=== PATIENT | female | born 1950 | race Caucasian/White ===

== ENCOUNTER 2019-01-18 23:44 | Emergency (ER) | payer MEDICARE ==
[~2019-01-18] VITALS: Ht 162.6 cm; Wt 59.0 kg
[~2019-01-18 23:44] MED LIST: ASPI325 PO; CYCL10 PO; HYDACE5 PO; LISI10 PO; MECL25 PO; MULVITA PO; ROSU5 PO
[2019-01-19] MEDS ORDERED: LOSARTAN POTASS50 MG PO (00:07)
[2019-01-19] MEDS ORDERED: Nitroglycerin1 EACH TD (00:07)
[2019-01-19] MEDS ORDERED: ROSUVASTATIN CA20 MG PO (00:07)
[2019-01-19] MEDS ORDERED: ESCI20 PO (00:07)
[2019-01-19] MEDS ORDERED: CLOP75 PO (00:07)
[2019-01-19] MEDS ORDERED: ALBU90OI6 INH (00:08)
[2019-01-19 00:24] LABS: BASOPHILS ABSOLUTE AUTO 0.02 K/mm3 (0.00-0.23); BASOPHILS PERCENT AUTO 0 % (0-2); EOSINOPHILS ABSOLUTE AUTO 0.02 K/mm3 (0.00-0.68); EOSINOPHILS PERCENT AUTO 0 % (0-6); Hematocrit 39.6 % (33.0-51.0); Hemoglobin 13.4 g/dL (11.5-16.0); IMMATURE GRAN ABSOLUTE AUTO 0.05 K/mm3 (0.00-0.10); IMMATURE GRAN PERCENT AUTO 1 % (0-1); LYMPHOCYTES ABSOLUTE AUTO 1.73 K/mm3 (0.84-5.20); LYMPHOCYTES PERCENT AUTO 17 % (21-46); MONOCYTES ABSOLUTE AUTO 0.59 K/mm3 (0.16-1.47); MONOCYTES PERCENT AUTO 6 % (4-13); Mean Corpuscular HGB 30.8 pg (26.0-34.0); Mean Corpuscular HGB Conc 33.8 g/dL (31.5-36.5); Mean Corpuscular Volume 91 fL (80-100); Mean Platelet Volume 11.2 fL (9.1-12.4); NEUTROPHILS ABSOLUTE AUTO 7.97 K/mm3 (1.96-9.15); NEUTROPHILS PERCENT AUTO 77 % (41-73); Platelet Count 232 K/mm3 (150-400); RDW Coefficient Variation 13.1 % (11.7-14.2); RDW Standard Deviation 43.2 fL (35.1-46.3); Red Blood Cell Count 4.35 M/mm3 (3.80-5.20); White Blood Cell Count 10.38 K/mm3 (4.00-11.30)
[2019-01-19 00:38] LABS: Alanine Aminotransfer (ALT/SGP 26 U/L (12-78); Albumin, Blood 4.2 g/dL (3.4-5.0); Albumin/Globulin Ratio 1.4 (0.8-1.8); Alk Phos 57 U/L (50-136); Anion Gap 9 mmol/L (6-16); Aspartate Aminotrans (AST/SGOT 25 U/L (12-37); Bilirubin, Total 0.4 mg/dL (0.1-1.0); Blood Urea Nitrogen 19 mg/dL (8-24); Bun/Creatinine Ratio 32.9 (12.0-20.0); CO2, Blood 26 mmol/L (21-32); Calcium, Blood 8.8 mg/dL (8.5-10.1); Chloride, Blood 97 mmol/L (98-108); Creatinine, Blood 0.58 mg/dL (0.40-1.00); Globulin, Blood 2.9 g/dL (2.2-4.0); Glomerular Filtration Rate >60 (60-); Glucose, Blood 131 mg/dL (70-99); Potassium, Blood 4.1 mmol/L (3.5-5.5); Sodium, Blood 132 mmol/L (136-145); Total Protein, Blood 7.1 g/dL (6.4-8.2); Troponin I <0.015 ng/mL (0.000-0.040)
== END 2019-01-19 03:08 | disposition home or self-care (01) ==
LOC: ER 23:44
PROVIDERS: Physician Assistant
DX: R07.9 Chest pain, unspecified (principal); I10 Essential (primary) hypertension; E78.00 Pure hypercholesterolemia, unspecified; F17.210 Nicotine dependence, cigarettes, uncomplicated; Z88.8 Allergy status to other drugs, medicaments and biological substances; Z79.82 Long term (current) use of aspirin; Z79.899 Other long term (current) drug therapy
CPT/HCPCS: 71046; 80053; 83880; 84484; 85025; 93005; 93010; 96374; 96375; 99285-25; J0360; J2270

== ENCOUNTER 2022-01-26 14:20 | Emergency (ER) | payer MEDICARE ==
[~2022-01-26] VITALS: Ht 160 cm; Wt 40.8 kg
[~2022-01-26 14:20] MED LIST changes: +ALBU90OI6 INH; +CLOP75 PO; +ESCI20 PO; +LOSARTAN POTASS50 MG PO; +NORCO 7.5-3251 EAC1 PO; +Nitroglycerin1 EACH TD; +ROSUVASTATIN CA20 MG PO
[2022-01-26] MEDS ORDERED: ROSUVASTATIN CA40 MG PO (15:18)
[2022-01-26] MEDS ORDERED: NEURONTIN300 MG PO (15:20)
[2022-01-26 15:31] LABS: BASOPHILS ABSOLUTE AUTO 0.03 K/mm3 (0.00-0.23); BASOPHILS PERCENT AUTO 0 % (0-2); EOSINOPHILS ABSOLUTE AUTO 0.23 K/mm3 (0.00-0.68); EOSINOPHILS PERCENT AUTO 2 % (0-6); Hematocrit 34.6 % (33.0-51.0); Hemoglobin 11.6 g/dL (11.5-16.0); IMMATURE GRAN ABSOLUTE AUTO 0.04 K/mm3 (0.00-0.10); IMMATURE GRAN PERCENT AUTO 0 % (0-1); LYMPHOCYTES ABSOLUTE AUTO 0.95 K/mm3 (0.84-5.20); LYMPHOCYTES PERCENT AUTO 9 % (21-46); MONOCYTES ABSOLUTE AUTO 0.89 K/mm3 (0.16-1.47); MONOCYTES PERCENT AUTO 8 % (4-13); Mean Corpuscular HGB 31.3 pg (26.0-34.0); Mean Corpuscular HGB Conc 33.5 g/dL (31.5-36.5); Mean Corpuscular Volume 93 fL (80-100); Mean Platelet Volume 10.3 fL (9.1-12.4); NEUTROPHILS ABSOLUTE AUTO 9.03 K/mm3 (1.96-9.15); NEUTROPHILS PERCENT AUTO 81 % (41-73); Platelet Count 348 K/mm3 (150-400); RDW Coefficient Variation 14.3 % (11.7-14.2); RDW Standard Deviation 48.7 fL (35.1-46.3); Red Blood Cell Count 3.71 M/mm3 (3.80-5.20); White Blood Cell Count 11.17 K/mm3 (4.00-11.30)
[2022-01-26 15:42] LABS: Albumin, Blood 3.4 g/dL (3.4-5.0); Albumin/Globulin Ratio 1.2 (0.8-1.8); Bilirubin, Total 0.4 mg/dL (0.1-1.0); Bun/Creatinine Ratio 22.1 (12.0-20.0); Calcium, Blood 9.1 mg/dL (8.5-10.1); Creatinine, Blood 0.73 mg/dL (0.40-1.00); Globulin, Blood 2.9 g/dL (2.2-4.0); Potassium, Blood 4.3 mmol/L (3.5-5.5); Total Protein, Blood 6.3 g/dL (6.4-8.2)
[2022-01-26 16:49] LABS: Source, Urine Clean Catch
[2022-01-26 16:52] LABS: Appearance, Urine Hazy (Clear); Bilirubin, Urine Neg (Neg); Blood, Urine Neg (Neg); Color, Urine Yellow (P-Yellow); Glucose Qualitative, Urine Neg (Neg); Ketones, Urine 1+ (Neg); Leukocyte Esterase, Urine 1+ (Neg); Nitrite, Urine Neg (Neg); Protein, Urine 2+ (Neg); Urobilinogen, Urine NORM (Normal)
[2022-01-26] MEDS ORDERED: Colace100 MG PO (17:06)
[2022-01-26] MEDS ORDERED: Percocet 5-3251 EACH PO (17:06)
[2022-01-26] MEDS ORDERED: Prednisone20 MG PO (17:06)
[2022-01-26 17:14] LABS: Red Blood Cells, Urine 0-2 /hpf (0-2)
[2022-01-26 17:15] LABS: Bacteria Many /hpf; Squamous Epithelial Cells Many /hpf (Few)
[2022-01-26 17:18] LABS: Hyaline Casts 0-2 /lpf (0-2); Mucus Mod (0-Heavy)
[2022-01-26] MEDS ORDERED: Zithromax250 MG PO (18:41)
== END 2022-01-26 18:52 | disposition home or self-care (01) ==
LOC: ER 14:20
PROVIDERS: Physician Assistant
DX: J44.1 Chronic obstructive pulmonary disease with (acute) exacerbation (principal); F17.210 Nicotine dependence, cigarettes, uncomplicated; M48.061 Spinal stenosis, lumbar region without neurogenic claudication; M48.07 Spinal stenosis, lumbosacral region; M48.56XA Collapsed vertebra, not elsewhere classified, lumbar region, initial encounter for fracture; M51.16 Intervertebral disc disorders with radiculopathy, lumbar region; I73.9 Peripheral vascular disease, unspecified; Z79.82 Long term (current) use of aspirin; Z79.899 Other long term (current) drug therapy; Z88.8 Allergy status to other drugs, medicaments and biological substances; Z79.52 Long term (current) use of systemic steroids
CPT/HCPCS: 36415; 71045; 72131; 80053; 81001; 83880; 84484; 85025; 93005; 93010; 93925; A9270; J0456; J1170; J2405; J2930; J3010; J7050

== ENCOUNTER 2022-02-24 14:54 | Inpatient (IN) | payer MEDICARE ==
[~2022-02-24] VITALS: Ht 160 cm; Wt 40.5 kg
[~2022-02-24 14:54] MED LIST changes: +Colace100 MG PO; +NEURONTIN300 MG PO; +Percocet 5-3251 EACH PO; +Prednisone20 MG PO; +ROSUVASTATIN CA40 MG PO; +Zithromax250 MG PO
[2022-02-24 16:07] LABS: BASOPHILS ABSOLUTE AUTO 0.02 K/mm3 (0.00-0.23); BASOPHILS PERCENT AUTO 0 % (0-2); EOSINOPHILS PERCENT AUTO 0 % (0-6); Hematocrit 22.9 % (33.0-51.0); IMMATURE GRAN ABSOLUTE AUTO 0.16 K/mm3 (0.00-0.10); IMMATURE GRAN PERCENT AUTO 1 % (0-1); LYMPHOCYTES ABSOLUTE AUTO 0.43 K/mm3 (0.84-5.20); LYMPHOCYTES PERCENT AUTO 2 % (21-46); MONOCYTES PERCENT AUTO 6 % (4-13); Mean Corpuscular HGB 32.3 pg (26.0-34.0); Mean Corpuscular HGB Conc 34.9 g/dL (31.5-36.5); Mean Corpuscular Volume 92 fL (80-100); Mean Platelet Volume 10.7 fL (9.1-12.4); NEUTROPHILS ABSOLUTE AUTO 18.09 K/mm3 (1.96-9.15); NEUTROPHILS PERCENT AUTO 91 % (41-73); Platelet Count 260 K/mm3 (150-400); RDW Standard Deviation 50.4 fL (35.1-46.3); Red Blood Cell Count 2.48 M/mm3 (3.80-5.20)
[2022-02-24 16:32] LABS: Albumin/Globulin Ratio 1.2 (0.8-1.8); Bilirubin, Total 0.6 mg/dL (0.1-1.0); Bun/Creatinine Ratio 58.8 (12.0-20.0); Calcium, Blood 9.2 mg/dL (8.5-10.1); Creatinine, Blood 0.71 mg/dL (0.40-1.00); Globulin, Blood 2.4 g/dL (2.2-4.0); Potassium, Blood 3.4 mmol/L (3.5-5.5); Total Protein, Blood 5.4 g/dL (6.4-8.2)
[2022-02-24 17:18] LABS: Source, Urine Fem Cath
[2022-02-24 17:25] LABS: Appearance, Urine Clear (Clear); Bilirubin, Urine Neg (Neg); Blood, Urine 2+ (Neg); Color, Urine Yellow (P-Yellow); Glucose Qualitative, Urine Neg (Neg); Ketones, Urine Neg (Neg); Leukocyte Esterase, Urine Neg (Neg); Nitrite, Urine Neg (Neg); Protein, Urine 2+ (Neg); Specific Gravity, Urine 1.025 (1.003-1.022); Urobilinogen, Urine NORM (Normal)
[2022-02-24 17:28] LABS: White Blood Cells, Urine 0-2 /hpf (0-5)
[2022-02-24 17:29] LABS: Bacteria Few /hpf; Squamous Epithelial Cells Rare /hpf (Few)
[2022-02-24 18:06] LABS: Influenza A, PCR NEGATIVE (NEGATIVE); Influenza B, PCR NEGATIVE (NEGATIVE); Resp Syncytial Virus, PCR NEGATIVE (NEGATIVE); SARS-Cov-2 (COVID-19) PCR, MMC NEGATIVE (NEGATIVE)
--- NOTE | 2022-02-24 19:10 | NUR ---
ASSUMPTION OF CARE PT IS A&OX4. SHE IS CONTINUOUSLY MOVING AROUND IN THE BED WITH C/O CHRONIC BACK PAIN. SHE IS RECEIVING NS 150ML/HR AND 2ND UNIT OF PRBCS. BLOOD STOPPED AT 1920. POWERGLIDE TO BETINA, 20G TO LFA AND 24G TO LW. LONDONO PATENT AND DRAINING TO GRAVITY. SINUS WITH ST DEPRESSION, RAT 90S-110S. SBP 90S. INCREASED WORK OF BREATHING, RATE 20-30. O2 MASK PLACED BY DAY SURGERY STAFF.
--- NOTE | 2022-02-24 19:20 | NUR ---
admit to icu 1830 PATIENT IS ALERT AND ORIENTED HOWEVER IN EXTREME PAIN TO HER BACK FLANK REGION. SHE IS VERY RESTLESS. SHE IS TACHYCARDIC, ON 2 L NC WITH WET, COURSE LUNGS T/O. SHE IS A 35.1KG WEIGHT. IT TOOK 3 RNS BUT A POWERGLIDE WAS PLACED TO HER UPPER LEFT ARM, FLUSHED WELL. NS STARTED ON 150 ML /HR AND PRBC WAS GOING FROM THE ER, THE RATE WAS INCREASED DUE TO HER HYPOTENSION. SHE OTHERWISE HAS 2 PIV'S, 20G TO LEFT WRIST AND 24 G TO RIGHT LOWER ARM. LONDONO IS IN PLACE WITH CLEAR YELLOW URINE OUT. SHE WAS GIVEN 0.5 MG OF DILAUDID FOR HER BACK PAIN AND THE SCOPE TEAM ARRIVED, CONSENTED AND IS SETTING UP FOR THE EGD. REPORT WAS GIVEN OFF TO ONCOMING SHIFT TO RESUME CARE.
--- NOTE | 2022-02-24 19:30 | NUR ---
ENDOSCOPY SCOPE PERFORMED BY DR NOE AND DR MOSCOSO WITH ASSISTANCE FROM 2 DAY SURGERY RNS. PROPOFOL USED FOR SEDATION AND ADMINISTERED BY DR MOSCOSO. TOTAL OF 15 CLIPS PLACED. REFER TO DAY SURGERY DOCUMENTATION FOR MORE INFORMATION. POWERGLIDE IN BETINA INFILTRATED. NEW POWERGLIDE PLACED IN RAFAL. 24G IN RW INFILATRATED, REMOVED. PT DROWSY BUT WAKENS TO VERBAL STIMULI. SHE IS ABLE TO ANSWER QUESTIONS APPROPRIATELY. MAKES PURPOSEFUL MOVEMENTS WITH ALL EXTREMITIES. SBP 150S, HR 100S, 5L NC WITH SPO2 >95%. SHE IS BEGINNING TO BECOME RESTLESS AGAIN, MEDICATED PER EMAR. BED IN LOW POSITION, CALL LIGHT WITHIN REACH.
--- NOTE | 2022-02-24 20:34 | NUR ---
02/24/222033 Celeste Melvin 191 IN ROOM, MONITORS PLACED ONE UNIT OF BLOOD TRANSFUSION COMPLETED. DR CONTRERAS PROVIDING ANESTHESIA, SEE HIS RECORDS. History, Chart, Medications and Allergies reviewed before start of procedure.2% LIDOCAINE SPRAY TO BACK OF THROAT JUST PRIOR TO START OF PROCEDURE. BITE BLOCK AND POM MASK PLACE IV INFILTRATED AT BEGINNING OF PROCEDURE AFTER 200 MG PROPOFOL GIVEN BY DR CONTRERAS.ABOVE IV SITE SWELLING NO REDNESSVISUALIZED. CHANGED IV SITES.
[2022-02-24 20:40] LABS: Hematocrit 20.7 % (33.0-51.0)
[2022-02-24 23:23] LABS: Hematocrit 23.4 % (33.0-51.0); Hemoglobin 8.3 g/dL (11.5-16.0)
--- NOTE | 2022-02-24 23:47 | NUR ---
UPDATE PT OCCASIONALLY VERY RESTLESS IN BED. REPOSITIONED AND BOOSTED SEVERAL TIMES, PT MOVES PILLOWS AND WIGGLES SELF AROUND. SHE CONTINUES TO C/O BACK PAIN, MEDICATED PER EMAR. SHE DENIES ABDOMINAL PAIN. DENIES NAUSEA. ORDER RECEIVED TO TRANSFUSE 1 MORE UNIT PRBCS THAT IS INFUSING NOW. TRENDING H&H. VSS. CALL LIGHT WITHIN REACH.
--- NOTE | 2022-02-25 04:39 | NUR ---
UPDATE PT REMAINS RESTLESS, CONTINUOUSLY MOVING AROUND IN BED. REPOSITIONED SEVERAL TIMES, WARM PAD BEHIND BACK. SHE CONTINUES TO HAVE SEVERE BACK PAIN. SHE DENIES ABDOMINAL PAIN, STS PAIN IS ONLY IN HER BACK. MEDICATED PER EMAR. HR TRENDING UP AND REMAINING 110S-130S. SHE IS HYPERTENSIVE WITH SBP CONSISTENTLY >150 WITH SOME >190. HOSPITALIST NOTIFIED, RECEIVED ORDER FOR INCREASED DOSE OF DILAUDID AND NEW ORDER FOR FENTANYL. MEDICATED PER EMAR, PT DENIES DECREASE IN PAIN. SHE REMAINS HYPERTENSIVE AND TACHY. MOTTLING ON KNEES AND ANKLES/FEET INCREASING. DOPPLER PULSES PRESENT POST-TIBIAL AND PEDAL BILATERALLY.
[2022-02-25 05:24] LABS: BASOPHILS ABSOLUTE AUTO 0.02 K/mm3 (0.00-0.23); BASOPHILS PERCENT AUTO 0 % (0-2); EOSINOPHILS PERCENT AUTO 0 % (0-6); Hemoglobin 10.1 g/dL (11.5-16.0); IMMATURE GRAN PERCENT AUTO 1 % (0-1); LYMPHOCYTES ABSOLUTE AUTO 0.96 K/mm3 (0.84-5.20); LYMPHOCYTES PERCENT AUTO 6 % (21-46); MONOCYTES ABSOLUTE AUTO 1.23 K/mm3 (0.16-1.47); MONOCYTES PERCENT AUTO 8 % (4-13); Mean Corpuscular HGB 31.2 pg (26.0-34.0); Mean Corpuscular HGB Conc 34.8 g/dL (31.5-36.5); Mean Corpuscular Volume 90 fL (80-100); Mean Platelet Volume 10.6 fL (9.1-12.4); NEUTROPHILS ABSOLUTE AUTO 13.71 K/mm3 (1.96-9.15); NEUTROPHILS PERCENT AUTO 86 % (41-73); Platelet Count 181 K/mm3 (150-400); RDW Coefficient Variation 14.3 % (11.7-14.2); RDW Standard Deviation 46.2 fL (35.1-46.3); Red Blood Cell Count 3.24 M/mm3 (3.80-5.20); White Blood Cell Count 16.02 K/mm3 (4.00-11.30)
[2022-02-25 05:48] LABS: Albumin, Blood 2.7 g/dL (3.4-5.0); Albumin/Globulin Ratio 1.2 (0.8-1.8); Bilirubin, Total 1.2 mg/dL (0.1-1.0); Bun/Creatinine Ratio 46.7 (12.0-20.0); Calcium, Blood 7.8 mg/dL (8.5-10.1); Creatinine, Blood 0.6 mg/dL (0.40-1.00); Globulin, Blood 2.2 g/dL (2.2-4.0); Magnesium, Blood 1.5 mg/dL (1.6-2.4); Phosphorus, Blood 2.2 mg/dL (2.5-4.9); Potassium, Blood 2.8 mmol/L (3.5-5.5); Total Protein, Blood 4.9 g/dL (6.4-8.2)
--- NOTE | 2022-02-25 06:02 | NUR ---
SHIFT SUMMARY PT HAS BEEN RESTLESS THROUGHOUT THE SHIFT. SHE CONTINUES TO HAVE BACK PAIN, REPOSITIONED SEVERAL TIMES, WARM PACK APPLIED, AND MEDICATED PER EMAR. HOSPITALIST CONSULTED AND PAIN MEDICATION DOSES INCREASED. SHE DENIES ABDOMINAL PAIN OR DISCOMFORT. NEURO: SHE REMAINS A&OX4. ANSWERS QUESTIONS APPROPRIATELY, PARTICIPATES IN CARE. RESP: SHE IS ON 3L NC WITH SPO2 >95%. LUNGS ARE COARSE AND DIMINISHED IN BASES. OCCASIONAL AUDIBLE WHEEZE AND COUGH. SHE HAS DENIES SOB THROUGHOUT THE NIGHT. CARDIAC: AT BEGINNING OF SHIFT HR 90S-105. HR INCREASED TO 120S, SINUS TACH. PT HAS BEEN HYPERTENSIVE FOR MOST OF SHIFT. HOSPITALIST MADE AWARE OF THESE CHANGES. STRONG RADIAL PULSES, DOPPLER POST-TIBIAL AND PEDAL PULSES. GI: ABDOMEN REMAINS SOFT, HYPOACTIVE BOWEL TONES. PT DRANK SMALL AMOUNT OF WATER. DENIES NAUSEA. NO VOMITING OR BM THIS SHIFT. ENDOSCOPY PERFORMED AT BEGINNING OF SHIFT, [address] NOE. : LONDONO PATENT AND DRAINING CLEAR YELLOW URINE TO GRAVITY. SHIFT OUTPUT 2250ML. SKIN: DRY, FRAGILE. SCAB TO L CLAVICLE AND R KNEE. SCATTERED BRUISING ON EXTREMITIES. SKIN TEAR ON R ELBOW. MOTTLING TO BILAT KNEES AND ANKLES/FEET. AM LABS SHOW POTASSIUM 2.8. ORDER RECEIVED FOR KCL. POWERGLIDE REMAINS IN RAFAL, 20G TO LFA. CALL LIGHT WITHIN REACH. WILL REPORT TO ONCOMING RN.
--- NOTE | 2022-02-25 07:30 | NUR ---
ASSUME CARE: I have assume care of this patient.
--- NOTE | 2022-02-25 08:21 | NUR ---
PROVIDER UPDATE: Dr Monique called and updated on pt's most recent labs and pain management. Discussed electrolyte placement and initiation of dilaudid SPEECH SCIENTIST. Provider to place new orders.
[2022-02-25 11:34] LABS: Hematocrit 28.5 % (33.0-51.0)
--- NOTE | 2022-02-25 15:35 | NUR ---
PROVIDER UPDATE: Dr Monique called and updated on pt's elevated BP. He will place new orders for PRN antihypertensives.
[2022-02-25 16:26] LABS: Hematocrit 30.7 % (33.0-51.0); Hemoglobin 10.9 g/dL (11.5-16.0)
--- NOTE | 2022-02-25 17:00 | NUR ---
UPDATE: RT called to assess pt.
--- NOTE | 2022-02-25 19:02 | NUR ---
SHIFT SUMMARY: Neuro: Pt intermittantly awake and oriented to self, place, and time. She states she is in the hospital because of her back pain. Pt drifts off to sleep, then wake up writhing in pain again. When awake pt is crying out in pain. She was placed on a dilaudid drip and has a fentanyl patch in place on her left shoulder. Cardiac: Sinus rhythm to sinus tach. Elevated SPB Respiratory: respiratory status has worsened throughout the day. She is currently on 8L NC with plan to place her on BIPAP when she tolerates it. GI/: She has taken sips of clear liquids today. No BP today. Chau draining Psych/social: family at bedside and supportive
--- NOTE | 2022-02-25 19:55 | NUR ---
ASSESSMENT/ASSUMED CARE PT SLEEPING, OPENS EYES TO VERBAL STIMULI BUT BACK TO SLEEP QUICKLY. PT IS MOVING SELF AROUND IN BED. LUNGS COARSE ON 6 LITERS VIA NC. RT PLACED ON BIPAP 14/03 RATE 14 FIO2 40%. LUNGS THAN CLEAR. SNORING NOTED WHEN OFF BIPAP. HEART RATE REGULAR 80-90'S. BP ELEVATED WITH SBP >150. PT HAS RECEIVED COZAAR 50MG AND LOPRESSOR 25 MG. BT+ ABD TENDER TO PALPATION AND PT GAURDING. DENIES N/V. POWER GLIDE TO RIGHT UPPER ARM WITH PROTONIX AT 10 ML/HR, SITE CLEAR. IV TO LEFT WRIST WITH NS AT 100 ML/HR WITH DILAUDID REFRIGERATION HOUSEMAN SITE CLEAR. LONDONO CATH PATENT DRAINING CLEAR YELLOW URINE.
--- NOTE | 2022-02-25 21:53 | NUR ---
PT YELLING OUT WITH BIPAP ON, MOVING SELF IN BED. WHEN ASKED WHAT IS WRONG PT STATES,"NOTHING, I DON'T KNOW". REMINDED ABOUT USING ETHNOLOGY TEACHER. PT CONT TO YELL OUT AT TIMES.
--- NOTE | 2022-02-25 22:09 | NUR ---
PAIN PT YELLING OUT AND MOVING SELF AROUND IN BED. UNABLE TO RELAX. YELLING,"PLEASE" AND "HELP". GIVE BOLUS DOSE OF DILAUDID 1 MG FOR BACK PAIN.
[2022-02-25 23:38] LABS: Hematocrit 28.9 % (33.0-51.0); Hemoglobin 10.1 g/dL (11.5-16.0)
--- NOTE | 2022-02-26 00:29 | NUR ---
RESTLESS PT SITTING UP IN BED YELLING,"HELP". WHEN ASKED WHAT IS WRONG PT STATES," DON'T KNOW". WHEN ASKED IF ANXIOUS PT STATES,"I DON'T KNOW. I DON'T KNOW WHAT TO DO'. PT RECEIVING DILAUDID 0.5 MG/HR VIA HOUSING DEVELOPMENT SPECIALIST WITH BOLUSES. CALL OUT TO DR NAVARRETE
--- NOTE | 2022-02-26 00:43 | NUR ---
PT GIVEN 0.5 MG IV ATIVAN FOR ANXIETY. PT YELLING,"NO" AND "HELP" WHEN ASKED WHAT IS WRONG PT STATES,"I DON'T KNOW". BIPAP ON.
[2022-02-26 03:47] LABS: BASOPHILS ABSOLUTE AUTO 0.01 K/mm3 (0.00-0.23); BASOPHILS PERCENT AUTO 0 % (0-2); EOSINOPHILS PERCENT AUTO 0 % (0-6); Hematocrit 28.5 % (33.0-51.0); Hemoglobin 9.7 g/dL (11.5-16.0); IMMATURE GRAN ABSOLUTE AUTO 0.09 K/mm3 (0.00-0.10); IMMATURE GRAN PERCENT AUTO 1 % (0-1); LYMPHOCYTES ABSOLUTE AUTO 0.44 K/mm3 (0.84-5.20); LYMPHOCYTES PERCENT AUTO 3 % (21-46); MONOCYTES ABSOLUTE AUTO 0.79 K/mm3 (0.16-1.47); MONOCYTES PERCENT AUTO 5 % (4-13); Mean Corpuscular HGB 31.6 pg (26.0-34.0); Mean Corpuscular Volume 93 fL (80-100); Mean Platelet Volume 10.9 fL (9.1-12.4); NEUTROPHILS ABSOLUTE AUTO 14.78 K/mm3 (1.96-9.15); NEUTROPHILS PERCENT AUTO 92 % (41-73); Platelet Count 160 K/mm3 (150-400); RDW Coefficient Variation 15.6 % (11.7-14.2); RDW Standard Deviation 52.5 fL (35.1-46.3); Red Blood Cell Count 3.07 M/mm3 (3.80-5.20); White Blood Cell Count 16.11 K/mm3 (4.00-11.30)
[2022-02-26 04:06] LABS: Albumin, Blood 2.5 g/dL (3.4-5.0); Bilirubin, Total 0.6 mg/dL (0.1-1.0); Bun/Creatinine Ratio 24.2 (12.0-20.0); Calcium, Blood 7.7 mg/dL (8.5-10.1); Creatinine, Blood 0.62 mg/dL (0.40-1.00); Globulin, Blood 2.5 g/dL (2.2-4.0); Potassium, Blood 2.8 mmol/L (3.5-5.5)
--- NOTE | 2022-02-26 05:56 | NUR ---
SHIFT SUMMARY PT RESTING QUIETLY AT THIS TIME WITH BIPAP ON. PT WAS RESTLESS DURING THE NIGHT AND WAS MED WITH BOLUS DOSE OF DILAUDID WITH LITTLE IMPROVEMENT, MED WITH ONE TIME DOSE ATIVAN 0.5 WITH GOOD RESULTS. PT SLEEPING AT THIS TIME WITH BIPAP ON. OPENS EYES TO VERBAL STIMULI AND NODS YES/NO, BUT BACK TO SLEEP QUICKLY. LUNGS COARSE ON 6 LITERS O2 VIA NC AT START OF NIGHT. PT PLACED ON BIPAP BY RT AND LUNG SOUNDS CLEAR ON BIPAP. RT TITRATED BIPAP SETTINGS DURING THE NIGHT, CURRENT SETTINGS 14/ RATE 14 FIO2 40%. HEART RATE SINUS RHYTHM 80-90'S. BP STABLE. PVC'S AND LONG QT NOTED AFTER ATIVAN GIVEN. ABD TENDER TO PALPATION. REFUSED PO FLUID DURING THE NIGHT. ORAL CARE DONE. NO STOOLS. LONDONO CATH PATENT DRAINING YELLOW URINE. PT MOVING SELF IN BED. H&H DOWN THIS AM 9.7/28.5 NO BLEEDING NOTED. K LEVEL 2.8 AND CA LEVEL 7.7. PT RECEIVED CALCIUM GLUCONATE AND KCL. PT CONT ON PROTONIX GTT, NS AT 100 ML/HR AND DILAUDID PROGRAM COUNSELOR. DAUGHTER CALLED DURING THE NIGHT AND UPDATE GIVEN. REPORT TO ON COMING NURSE.
--- NOTE | 2022-02-26 08:10 | NUR ---
ASSUMED CARE: REPORT RECEIVED FROM VU Cooley RN. ASSUMED CARE OF THIS PT AT APPROX [id number]. ON ASSESSMENT, THE PT IS RESTING QUIETLY. SHE AWAKENS EASILY TO VERBAL STIMULUS & IS ABLE TO FOLLOW DIRECTIONS AT THAT TIME. SHE IS INCREASINGLY ANXIOUS W/ MORE STIMULUS BUT OVERALL TOLERATING WELL THIS AM. LS ARE COARSE T/O, PT ON BIPAP W/ SETTINGS: 14/5 & 40% FIO2. MONITOR SHOWS SR-ST W/ HR 90-100s, INCREASED W/ ANXIETY. HTN W/ SCHEDULED AM MEDS THIS AM. CLEAR LIQUID DIET ORDERED, WILL ASSESS IF PT SAFE TO SWALLOW. SKIN OVERALL FRAGILE, ECCHYMOTIC. Q2H REPOSITIONING TO MAINTAIN SKIN INTEGRITY. WILL CONTINUE TO MONITOR & UPDATE NEEDED.
[2022-02-26 08:22] LABS: Hematocrit 29.7 % (33.0-51.0)
--- NOTE | 2022-02-26 09:00 | NUR ---
DR RUANO: PROVIDER AT BEDSIDE THIS AM TO EVAL PT. HE WOULD LIKE SCIENTIFIC INFORMATICS PROJECT LEADER CONSULTED FOR PERIPHERAL PARENTERAL NUTRITION, ORDERS PLACED. DISCUSSED PT's CONTINUED ANXIETY W/ INCREASED STIMULUS, REPOSITIONING OR ADLs. ONE TIME DOSE OF ATIVAN WORKED WELL FOR THIS PT LAST NIGHT, ORDERS PLACED FOR ATIVAN PRN. NO OTHER CHANGES AT THIS TIME. FAMILY HAS BEEN AT BEDSIDE DURING THIS TIME & IS UPDATED BY PROVIDER.
--- NOTE | 2022-02-26 10:30 | NUR ---
DR BARRIGA / UPDATE: PROVIDER AT BEDSIDE TO EVAL PT. PT's SON & DAUGHTER ARE ALSO AT BEDSIDE DURING THIS TIME. THIS RN HAS CONTACTED PALLIATIVE CARE RN, MUKESH Vizcaino, & REQUESTED THAT SHE COME TO BEDSIDE WELL. DURING THIS TIME, THE PROVIDER, FAMILY & MUKESH RN HAVE DISCUSSED THE PT's OVERALL POOR PROGNOSIS & DIFFICULTY MANAGING THE PT's PAIN/ ANXIETY WHILE MAINTAINING ADEQUATE RESPIRATORY DRIVE. THE PT's DAUGHTER, STS THAT THEY HAVE BEEN WORKING ON A POLST AT HOME PRIOR TO THIS INCIDENT & THAT THE PT HAS BEEN CLEAR SHE WOULD NOT WANT TO RECEIVE CPR, BUT IS OKAY W/ INTUBATION. DR BARRIGA IS AGREEABLE TO THIS POC & ORDERS HAVE BEEN PLACED FOR LIMITED CODE STATUS. THE PLAN WILL BE FOR AN MRI IN THE NEAR FUTURE ONCE THE PT HAS PASSED GASTRIC CLIPS R/T ULCERS FOUND ON ADMISSION. GASTRIC CLIPS ARE SAFE TO GO THROUGH THE MRI BUT WOULD SKEW THE IMAGE OF THE PT's SPINAL FXs. SEE PALLIATIVE CARE NOTE FOR MORE DETAILS REGARDING THIS.
--- NOTE | 2022-02-26 14:56 | NUR ---
Met with pt's daughter Elle today along with Dr. Hernandez to discuss pt's current treatment plan. The pt has multiple comorbidities that make pain management challenging. She has compression fractures up and down her spine, along with COPD, post hemorrhagic anemia with melena, CAD, HTN, PAD, 15 cardiac stents along with multiple GI clips placed. Her back pain is intractable and she's currently on a INDUSTRIAL DESIGN ENGINEER of Dilaudid. The concern is attempting to manage the pain while not causing further GI bleeding, or increasing the chances of respiratory failure Today, pt gave her daughter Elle permission to make medical decisions for her. We also changed her code status to limited: No chest compressions, and allow for intubation only on a trial basis. Daughter Elle will be out of state for several days but will remain available by [facility]. Palliative will remain available.
--- NOTE | 2022-02-26 14:59 | NUR ---
HARVEST CREW SUPERVISOR UPDATE: AFTER DISCUSSING NEED FOR NUTRITION THIS AM W/ DR RUANO, HARVEST CREW SUPERVISOR CONSULTATION WAS ORDERED. YENY Verma, HARVEST CREW SUPERVISOR, HAS BEEN DISCUSSING THIS PT's PROTEIN & CALORIE NEEDS W/ THIS RN & HAS MENTIONED THAT IT WOULD BE OPTIMAL TO PLACE AN NGT & BEGIN ENTERAL FEEDS, VERSUS PERIPHERAL PARENTERAL NUTRITION. THIS RN HAS CONTACTED DR NOE FOR HIS INPUT ON THE ISSUE IT SEEMS DISLODGING GASTRIC CLIPS WITHIN THE PT's STOMACH WOULD BE A CONCERN. DR NOE STS THAT THE RISK OF DISLODGING GASTRIC CLIPS OR PERFORATING THE DEEP ULCER IS PRESENT. HE WOULD LIKE TO MAKE SURE THE PT REMAINS STABLE THROUGH TOMORROW & REASSESS FOR THE POSSIBILITY OF PLACING AN NGT/ BEGINNING ENTERAL FEEDS ON WEDNESDAY (02/28/22). HE STS HE BELIEVES THAT STARTING CLINIMIX IN THE MEANTIME WOULD BE BENEFICIAL FOR THE PT. THIS RN HAS COMMUNICATED THIS PLAN W/ YENY Verma, HARVEST CREW SUPERVISOR. HE PLANS TO MAKE NOTE FOR DIETARY TEAM WELL.
--- NOTE | 2022-02-26 17:27 | NUR ---
ASSUMED CARE FROM SHAINA CHAKRABORTY PT. RESTING COMFORTABLY IN BED AT THIS TIME, REMAINS ON BIPAP. FAMILY AT BEDSIDE. ALL NEEDS MET AT THIS TIME, REPORT TO ONCOMING RN.
--- NOTE | 2022-02-26 17:54 | NUR ---
PT HR FROM 115-130S. CALL TO DR. RUANO FOR PRN LOPRESSOR FOR ELEVATED HR. PER. PT DAUGHTER SHE WAS HAVING SOME PAIN WHEN HR WAS UP TO 130S, GARAGE MECHANIC WAS PUSHED BY PT AND HR TRENDED BACK DOWN TO 114
--- NOTE | 2022-02-26 20:00 | NUR ---
ASSESSMENT/ASSUMED CARE PT SITTING UP IN BED WITH BIPAP ON. DAUGHTER AT BEDSIDE. PT OPENS EYES TO VERBAL STIMULI AND BECOMES ANXIOUS. DAUGHTER HELPING PT TO FOCUS AND RELAX BY TALKING WITH HER AND HOLDING HER HAND. PT FOLLOWING INSTRUCTIONS. LUNGS COARSE THROUGHOUT WITH BIPAP ON. BIPAP SETTINGS 14/5 RATE 14 FIO2 40%. HEART RATE 120-130'S SINUS. SBP 170'S. MED WITH LOPRESSOR 5 MG IV OVER 5 MIN. HEART NOW DOWN TO 90-100. NO EDEMA. BT+ ABD LESS TENDER FROM LAST NIGHT. ABLE TO TOUCH PT ABD WITHOUT HER CRYING OUT OR GUARDING. LONDONO CATH PATENT DRAINING YELLOW URINE. POWER GLIDE TO RIGHT UPPER ARM WITH PROTONIX AT 10 ML/HR, SITE CLEAR AND DRSG INTACT. IV TO LEFT WRIST WITH NS AT 10 ML/HR, CLINIMIX AT 40 ML/HR AND DILAUDID ORTHOPEDICS NURSE. ORAL CARE DONE. PT MOVING SELF IN BED.
--- NOTE | 2022-02-26 20:46 | NUR ---
DAUGHTER OSKAR TOOK PT PURSE AND CELL PHONE HOME WITH HER.
--- NOTE | 2022-02-27 01:46 | NUR ---
PT RESTLESS, YELLING OUT,"NO, NO, NO". WHEN ASKED IF IN PAIN PT STATES,"NO". WHEN ASKED WHAT IS WRONG PT STATES,"I DON'T KNOW". PT ANXIOUS. MED WITH ATIVAN.
[2022-02-27 03:34] LABS: BASOPHILS ABSOLUTE AUTO 0.01 K/mm3 (0.00-0.23); BASOPHILS PERCENT AUTO 0 % (0-2); EOSINOPHILS PERCENT AUTO 0 % (0-6); Hematocrit 26.8 % (33.0-51.0); Hemoglobin 8.9 g/dL (11.5-16.0); IMMATURE GRAN ABSOLUTE AUTO 0.07 K/mm3 (0.00-0.10); IMMATURE GRAN PERCENT AUTO 1 % (0-1); LYMPHOCYTES ABSOLUTE AUTO 0.37 K/mm3 (0.84-5.20); LYMPHOCYTES PERCENT AUTO 3 % (21-46); MONOCYTES ABSOLUTE AUTO 0.86 K/mm3 (0.16-1.47); MONOCYTES PERCENT AUTO 6 % (4-13); Mean Corpuscular HGB 31.9 pg (26.0-34.0); Mean Corpuscular HGB Conc 33.2 g/dL (31.5-36.5); Mean Corpuscular Volume 96 fL (80-100); Mean Platelet Volume 10.6 fL (9.1-12.4); NEUTROPHILS PERCENT AUTO 91 % (41-73); Platelet Count 169 K/mm3 (150-400); RDW Standard Deviation 55.1 fL (35.1-46.3); Red Blood Cell Count 2.79 M/mm3 (3.80-5.20); White Blood Cell Count 14.21 K/mm3 (4.00-11.30)
[2022-02-27 03:53] LABS: Albumin, Blood 2.2 g/dL (3.4-5.0); Albumin/Globulin Ratio 0.9 (0.8-1.8); Bilirubin, Total 0.5 mg/dL (0.1-1.0); Bun/Creatinine Ratio 24.5 (12.0-20.0); Calcium, Blood 8.1 mg/dL (8.5-10.1); Creatinine, Blood 0.65 mg/dL (0.40-1.00); Globulin, Blood 2.4 g/dL (2.2-4.0); Magnesium, Blood 1.6 mg/dL (1.6-2.4); Phosphorus, Blood 2.2 mg/dL (2.5-4.9); Potassium, Blood 3.1 mmol/L (3.5-5.5); Total Protein, Blood 4.6 g/dL (6.4-8.2)
--- NOTE | 2022-02-27 05:42 | NUR ---
HTN BP 182/71 HEART RATE 95, MED WITH HYDRALAZINE 10MG.
--- NOTE | 2022-02-27 06:18 | NUR ---
SHIFT SUMMARY PT RESTING QUIETLY AT THIS TIME WITH BIPAP ON. OPENS EYES TO VERBAL STIMULI. FOLLOWS SOME SIMPLE INSTRUCTIONS. INCREASED ANXIETY NOTED WITH REPOSITIONING AND MED WITH ATIVAN ONCE WITH GOOD RESULTS. LUNGS COARSE ON BIPAP. BIPAP SETTINGS 14/5 RATE 14 FIO2 40%, RT CHANGED TO 16/7 RATE 14 FIO2 40%. HEART RATE ELEVATED 120-130'S MED WITH LOPRESSOR ONCE AND HEART RATE DOWN TO 90-100'S. HTN NOTED THIS AM AFTER IV PLACEMENT. MED WITH HYDRALAZINE 10MG WITH GOOD RESULTS. PT UNABLE TO TAKE PO MEDS. UNABLE TO DO BEDSIDE SWALLOW EVAL WITH PT DUE TO SEDATION. PO MEDS HELD. PT RECEIVING DILAUDID VIA SINGER BACK TENDER. FENTANYL PATCH TO LEFT UPPER ARM. CLINIMIX AT 40 ML/HR. LABS CALLED TO DR NAVARRETE THIS AM, REPLACING POTASSIUM PHOS. NEW IV PLACED TO RIGHT FOREARM AND POWER GLIDE DRSG CHANGED. REPORT TO ON COMING NURSE
--- NOTE | 2022-02-27 18:00 | NUR ---
SUMMARY PT ON BIPAP ALL DAY TODAY. SMALL BREAKS FOR ORAL CARE. PT WAS WRITHING IN PAIN THIS AM. CONSTANTLY MOANING AND EXTREMITIES SHAKING WITH ANXIETY. SPOKE WITH DR. JOHNS WHO INCREASED ATIVAN TO Q8H PRN. AFTER ONE ATIVAN DOSE PT HAS BEEN CALM. WILL MOAN OUT WITH REPOSITIONING BUT IS ABLE TO SETTLE BACK DOWN. WITH REPOSITIONING BP SPIKES UP BUT WILL USUALLY COME BACK DOWN. ONE DOSE OF METOPROLOL IV GIVEN THIS AM. CHANGED TO TPN TODAY. KPHOS GIVEN 2X TODAY. LS WERE COARSE THIS AM, BNP ELEVATED, AND BIPAP SETTINGS HAD BEEN INCREASED. ONE DOSE OF LASIX GIVEN AND PT IS DIURESING WELL. LS NOW CLEAR. FAMILY AT BEDSIDE MOST OF THE DAY.
--- NOTE | 2022-02-27 20:54 | NUR ---
ASSUMED CARE AT 1900 PATIENT RESPONDS TO VERBAL STIMULI, ORIENTED TO SELF, MOANS AND DOES NOT ANSWER ANY OTHER QUESTIONS. FOLLOWS COMMANDS AT TIMES. 02 SATS 96% ON BIPAP 16/ FI02 40%, RR 15-20, INCREASES WITH ANXIETY. LS CLEAR-DIM. HR SR-ST 90s-120s. BP HYPERTENSIVE, MEDICATED FOR PAIN FIRST, PRN MEDICATION FOR BP IF NEEDED. LONDONO PATENT AND DRAINING CLEAR YELLOW TO GRAVITY. REPOSITIONED PATIENT AND ATTEMPTED TO CHNAGE SHIRT, PATIENT CONTINUED TO YELL NO AND PUSH BACK AGAINST STAFF THE ENTIRE TIME, ABLE TO REPOSITION BUT UNABLE TO CHANGE CLOTHING. MEDICATED FRO PAIN PRN AND DILAUDID MARINE TECHNICIAN INF. PATIENT HAS TPN INF AND PROTONIX. CALL LIGHT IN REACH. SEE SHIFT ASSESSMENT FOR MORE INFORMATION.
[2022-02-28 03:55] LABS: BASOPHILS ABSOLUTE AUTO 0.01 K/mm3 (0.00-0.23); BASOPHILS PERCENT AUTO 0 % (0-2); EOSINOPHILS ABSOLUTE AUTO 0.02 K/mm3 (0.00-0.68); EOSINOPHILS PERCENT AUTO 0 % (0-6); Hematocrit 26.7 % (33.0-51.0); Hemoglobin 8.9 g/dL (11.5-16.0); IMMATURE GRAN ABSOLUTE AUTO 0.08 K/mm3 (0.00-0.10); IMMATURE GRAN PERCENT AUTO 1 % (0-1); LYMPHOCYTES ABSOLUTE AUTO 0.49 K/mm3 (0.84-5.20); LYMPHOCYTES PERCENT AUTO 4 % (21-46); MONOCYTES PERCENT AUTO 8 % (4-13); Mean Corpuscular HGB Conc 33.3 g/dL (31.5-36.5); Mean Corpuscular Volume 96 fL (80-100); Mean Platelet Volume 10.5 fL (9.1-12.4); NEUTROPHILS PERCENT AUTO 88 % (41-73); Platelet Count 186 K/mm3 (150-400); RDW Coefficient Variation 15.6 % (11.7-14.2); RDW Standard Deviation 52.7 fL (35.1-46.3); Red Blood Cell Count 2.78 M/mm3 (3.80-5.20)
[2022-02-28 04:11] LABS: Calcium, Blood 7.9 mg/dL (8.5-10.1); Creatinine, Blood 0.67 mg/dL (0.40-1.00); Magnesium, Blood 1.5 mg/dL (1.6-2.4); Phosphorus, Blood 2.5 mg/dL (2.5-4.9); Potassium, Blood 3.4 mmol/L (3.5-5.5)
--- NOTE | 2022-02-28 06:06 | NUR ---
SHIFT SUMMARY PATIENT IS ALERT AND ORIENTED X SELF, FOLLOWS SOME SIMPLE COMMANDS, OTHERWISE CONFUSED. YELLS OUT AND SAYS NO TO MOST THINGS. 02 SATS 95% ON BIPAP 14/03 FI02 40%. HR SR-ST 90-110. BP HYPERTENSIVE AT TIMES ESPECIALLY WHEN PATIENT IS PAINFUL OR AGITATED, MEDICATED PER EMAR. MEDICATED FOR PAIN PRN. LONDONO PATENT AND DRAINING TO GRAVITY. NO BM. PATIENT REPOSITIONED EVERY 2 HOURS. ORAL CARE DONE EVERY FOUR HOURS AND WHEN REQUESTED. REPLACING ELECTROLYTES PER PROTOCOL. PROTONIX, TPN, AND DILAUDED TOBACCO CHECKOUT CLERK REMAIN INFUSING. CALL LIGHT IN REACH.
--- NOTE | 2022-02-28 17:54 | NUR ---
SUMMARY PT RESTING IN BED ON BIPAP. PT WILL AWAKEN WITH ANY SLIGHT TOUCH. PT WAKES AND SAYS "NO NO NO". PT WILL ONLY ANSWER A FEW QUESTIONS. KNOWS SHE IS AT [facility]. ORIENTED TO FAMILY. CRIES OUT WITH REPOSITIONING. ON PATIENT ACCOUNTS SPECIALIST AND GETS ATIVAN PRN. BP AND HR INCREASE WHEN PT IS IN PAIN OR ANXIOUS. AFTER ATIVAN PT WILL DOSE TO SLEEP AND BP AND HR COME BACK DOWN. TRIALED PT OFF BIPAP THIS AM BUT ONLY MADE IT ABOUT 40 MINUTES BEFORE SATS DROPPED TO LOW 80'S AND HAD TO GO BACK ON. SETTINGS ADJUSTED TO 10/[address] HUNTER. HAS MOIST NONPRODUCTIVE COUGH WHEN OFF BIPAP. LASIX ORDERED AGAIN TODAY AND LS CLEAR. FAMILY AT BEDSIDE MOST OF THE DAY. NO SIGN OF DISTRESS.
--- NOTE | 2022-02-28 20:41 | NUR ---
ASSUMED CARE AT 1900 PATIENT IS ALERT AND ORIENTED X SELF AND CITY, ABLE TO FOLLOW SIMPLE COMMANDS. CONFUSED AND ANXIOUS OTHERWISE. WHEN ASKED IF IN PAIN PATIENT MOANS AND SAYS NO WHILE GRIMACING, ASKED IF HER BACK HURT AND SHE YELLED YES. 02 SATS 94% ON BIPAP 10/5 FI02 40%, LEFT LUNG COARSE, RIGHT LUNG SOUNDS CLEAR TO DIMINISHED, PATIENT HAS DRY COUGH. RR 16-20 AT REST, WHEN ANXIOUS RR 30s-40s. HR SR-ST 90s-110. BP HYPERTENSIVE AT TIMES, USUALLY WHEN PAINFUL OR BEING REPOSITIONED, WILL MEDICATED PRN FOR PAIN AND HYPERTENSION. DILAUDID COAL TRAMMER INF. PATIENT HAS PPN INFUSING. LONDONO PATENT AND DRAINING TO GRAVITY, CATH CARE COMPLETE. ORAL CARE COMPLETE. BEDBATH DONE, LINEN CHANGED, PICTURE OF COCCYX IN CHART, PROTECTIVE DRESSING APPLIED. PATIENT REPOSITIONED Q2 HOURS. EXTRA EGG CRATE PADDING ON BED. CALL LIGHT IN REACH.
[2022-03-01 04:57] LABS: BASOPHILS ABSOLUTE AUTO 0.01 K/mm3 (0.00-0.23); BASOPHILS PERCENT AUTO 0 % (0-2); EOSINOPHILS ABSOLUTE AUTO 0.12 K/mm3 (0.00-0.68); EOSINOPHILS PERCENT AUTO 1 % (0-6); Hematocrit 28.4 % (33.0-51.0); Hemoglobin 9.6 g/dL (11.5-16.0); IMMATURE GRAN ABSOLUTE AUTO 0.06 K/mm3 (0.00-0.10); IMMATURE GRAN PERCENT AUTO 0 % (0-1); LYMPHOCYTES ABSOLUTE AUTO 0.67 K/mm3 (0.84-5.20); LYMPHOCYTES PERCENT AUTO 5 % (21-46); MONOCYTES ABSOLUTE AUTO 1.21 K/mm3 (0.16-1.47); MONOCYTES PERCENT AUTO 8 % (4-13); Mean Corpuscular HGB Conc 33.8 g/dL (31.5-36.5); Mean Corpuscular Volume 95 fL (80-100); Mean Platelet Volume 10.9 fL (9.1-12.4); NEUTROPHILS ABSOLUTE AUTO 12.47 K/mm3 (1.96-9.15); NEUTROPHILS PERCENT AUTO 86 % (41-73); Platelet Count 202 K/mm3 (150-400); RDW Coefficient Variation 14.9 % (11.7-14.2); RDW Standard Deviation 50.8 fL (35.1-46.3); White Blood Cell Count 14.54 K/mm3 (4.00-11.30)
[2022-03-01 05:39] LABS: Bun/Creatinine Ratio 28.3 (12.0-20.0); Calcium, Blood 8.5 mg/dL (8.5-10.1); Creatinine, Blood 0.64 mg/dL (0.40-1.00); Magnesium, Blood 1.6 mg/dL (1.6-2.4); Phosphorus, Blood 3.7 mg/dL (2.5-4.9); Potassium, Blood 3.2 mmol/L (3.5-5.5)
--- NOTE | 2022-03-01 07:46 | NUR ---
SHIFT SUMMARY PATIENT IS ALERT AND ORIENTED X SELF AND FOLLOWING SIMPLE COMMANDS. CONFUSED AND ANXIOUS OTHERWISE. 02 SATS >93% ON BIPAP, PATIENTS TIDAL VOLUMES DECREASING THROUGH THE NIGHT AND PATIENT LS MORE COARSE, RT CHANGED SETTINGS, SEE RT DOCUMENTATION. HR SR-ST 90-110, BP STABLE, HYPERTENSIVE WITH PAIN AND ANXIETY, MEDICATED PER EMAR. LONDONO PATENT AND DRAINING TO GRAVITY. PATIENT REPOSITIONED Q2 HOURS AND ORAL CARE DONE. IV NUTRITION AND DILAUDID FRAME ALIGNER INF.
--- NOTE | 2022-03-01 18:21 | NUR ---
SUMMARY PT RESTING IN BED. A/O TO PERSON, PLACE, AND FAMILY. PT IS MORE RESPONSIVE TODAY. ANSWERS MORE QUESTIONS. STILL VERY PAINFUL WITH ANY TOUCH OR MOVEMENT. DRAPERY OPERATOR RUNNING, PRN DILAUDID GIVEN, AND ATIVAN GIVEN. ATIVAN WORKS WELL AND BP AND HR WILL DECREASE AFTERWARDS. OFF BIPAP MOST OF THE DAY ON 5L NC. MOIST NON PRODUCTIVE COUGH. NO SIGN OF RESP DISTRESS. POTASSIUM REPLACED AGAIN TODAY. NO OTHER CHANGES TODAY. FAMILY AT BEDSIDE MOST OF THE DAY.
--- NOTE | 2022-03-01 22:09 | NUR ---
PT. PLACED BACK ON BIPAP AFTER DESATTING TO 85 WITH NASAL CANNULA ON. PT. APPEARS TO BE BREATHING THROUGH HER MOUTH AND DID NOT RESPOND TO BUMPING O2 UP TO 6L.
[2022-03-02 04:43] LABS: BASOPHILS ABSOLUTE AUTO 0.02 K/mm3 (0.00-0.23); BASOPHILS PERCENT AUTO 0 % (0-2); EOSINOPHILS ABSOLUTE AUTO 0.06 K/mm3 (0.00-0.68); EOSINOPHILS PERCENT AUTO 0 % (0-6); Hematocrit 30.4 % (33.0-51.0); Hemoglobin 9.9 g/dL (11.5-16.0); IMMATURE GRAN ABSOLUTE AUTO 0.07 K/mm3 (0.00-0.10); IMMATURE GRAN PERCENT AUTO 0 % (0-1); LYMPHOCYTES ABSOLUTE AUTO 0.55 K/mm3 (0.84-5.20); LYMPHOCYTES PERCENT AUTO 3 % (21-46); MONOCYTES ABSOLUTE AUTO 1.23 K/mm3 (0.16-1.47); MONOCYTES PERCENT AUTO 7 % (4-13); Mean Corpuscular HGB Conc 32.6 g/dL (31.5-36.5); Mean Corpuscular Volume 98 fL (80-100); Mean Platelet Volume 11.2 fL (9.1-12.4); NEUTROPHILS ABSOLUTE AUTO 14.69 K/mm3 (1.96-9.15); NEUTROPHILS PERCENT AUTO 88 % (41-73); Platelet Count 274 K/mm3 (150-400); RDW Standard Deviation 52.8 fL (35.1-46.3); Red Blood Cell Count 3.09 M/mm3 (3.80-5.20); White Blood Cell Count 16.62 K/mm3 (4.00-11.30)
[2022-03-02 04:58] LABS: Bun/Creatinine Ratio 29.6 (12.0-20.0); Creatinine, Blood 0.68 mg/dL (0.40-1.00); Magnesium, Blood 1.7 mg/dL (1.6-2.4); Phosphorus, Blood 4.3 mg/dL (2.5-4.9); Potassium, Blood 4.3 mmol/L (3.5-5.5)
--- NOTE | 2022-03-02 05:28 | NUR ---
PT. IS ALERT AND ORIENTED TO SELF, PLACE, AND LOCATION. SHE WAS ABLE TO BE ON 5L NC MOST OF THE NIGHT, ONLY REQUIRING BIPAP FOR A SHORT TIME SHE WAS BREATHING THROUGH HER MOUTH AND DESATTING. PT. HAS BEEN IN SINUS TACH MOST OF THE NIGHT BUT HAS MULTIPLE PVCS AND AT ONE POINT WENT INTO AN IRREGULAR RHYTHM. BP HAS BEEN HYPERTENSIVE ALL NIGHT WITH A MAX OF 205 SYSTOLIC, MEDICATIONS WERE GIVEN FOR THIS. PT. IS STILL ON TPN AND IT IS GOING TO A RIGHT POWERGLIDE. PT. ALSO HAS ECONOMIC ADVISER PUMP GOING AND RATES WERE UPPED TO 0.4 MG/HR AND HAS DILAUDID PRNS Q2 HR. PT. HAS NEEDED THE PRNS SEVERAL TIMES TONIGHT AND STILL APPEARS TO BE IN PAIN SHE IS GROANING AND HER VS HAVE SHOWN HYPERTENSION, TACHYCARDIA, AND TACHYPNEA THAT SEEM TO RESOLVE FOR A SHORT AMOUNT OF TIME WHEN GIVEN PAIN MEDICATION.
--- NOTE | 2022-03-02 07:11 | NUR ---
ASSUME CARE: I have assumed care of patient at this time.
--- NOTE | 2022-03-02 18:53 | NUR ---
SHIFT SUMMARY: Pt continues on dilauded platinumsmith with fentanyl patch. RN gave rectal tylenol this morning as an ajunct to pain management. Only one dose of PRN dilaudid given today in addition to the GAS MAKER HELPER. 0.5mg of ativan given this afternoon when pt began attempting to get out of bed. BIPAP was replaced after a few hours on NC. Current settings AVAPS/EPAP 6/TV 350/35%. Chau draining clear yellow urine. New skin breakdown noted on coccyx this AM, please see photo in chart.
--- NOTE | 2022-03-03 06:28 | NUR ---
PT. TOLERATED NASAL CANNULA WELL AND WAS ABLE TO REMAIN OFF OF BIPAP FOR MOST OF THE NIGHT AND STILL SATTED WELL. PAIN WAS BETTER MANAGED OVERNIGHT AND THE ONLY PRN SHE REQUIRED WAS ATIVAN ONE TIME FOR RESTLESSNESS AND ANXIETY. PT. STILL REMAINS SLIGHTLY CONFUSED BUT DOES ANSWER QUESTIONS APPROPRIATELY. LONDONO CATHETER IS STILL IN PLACE AND IS DRAINING WELL, SHE HAD 700 OF UOP TONIGHT. TPN STILL RUNNING AND NO GI DISCOMFORT WAS NOTED. PT. RESTING COMFORTABLY IN BED AT THIS TIME.
[2022-03-03 07:35] LABS: BASOPHILS ABSOLUTE AUTO 0.04 K/mm3 (0.00-0.23); BASOPHILS PERCENT AUTO 0 % (0-2); EOSINOPHILS ABSOLUTE AUTO 0.35 K/mm3 (0.00-0.68); EOSINOPHILS PERCENT AUTO 3 % (0-6); Hematocrit 32.4 % (33.0-51.0); Hemoglobin 10.4 g/dL (11.5-16.0); IMMATURE GRAN ABSOLUTE AUTO 0.08 K/mm3 (0.00-0.10); IMMATURE GRAN PERCENT AUTO 1 % (0-1); LYMPHOCYTES ABSOLUTE AUTO 1.02 K/mm3 (0.84-5.20); LYMPHOCYTES PERCENT AUTO 8 % (21-46); MONOCYTES ABSOLUTE AUTO 1.12 K/mm3 (0.16-1.47); MONOCYTES PERCENT AUTO 9 % (4-13); Mean Corpuscular HGB 32.2 pg (26.0-34.0); Mean Corpuscular HGB Conc 32.1 g/dL (31.5-36.5); Mean Corpuscular Volume 100 fL (80-100); NEUTROPHILS PERCENT AUTO 80 % (41-73); Platelet Count 331 K/mm3 (150-400); RDW Coefficient Variation 14.8 % (11.7-14.2); RDW Standard Deviation 53.8 fL (35.1-46.3); Red Blood Cell Count 3.23 M/mm3 (3.80-5.20); White Blood Cell Count 13.21 K/mm3 (4.00-11.30)
[2022-03-03 07:49] LABS: Albumin, Blood 1.9 g/dL (3.4-5.0); Anion Gap 6 mmol/L (6-16); Blood Urea Nitrogen 29 mg/dL (8-24); Bun/Creatinine Ratio 53.1 (12.0-20.0); CO2, Blood 32 mmol/L (21-32); Calcium, Blood 9.3 mg/dL (8.5-10.1); Chloride, Blood 98 mmol/L (98-108); Creatinine, Blood 0.55 mg/dL (0.40-1.00); Glomerular Filtration Rate 97 (60-); Glucose, Blood 98 mg/dL (70-99); Phosphorus, Blood 4.2 mg/dL (2.5-4.9); Potassium, Blood 4.3 mmol/L (3.5-5.5); Sodium, Blood 136 mmol/L (136-145)
--- NOTE | 2022-03-03 08:30 | NUR ---
INITIAL ASSESSMENT PATIENT ONLY ORIENTED TO SELF AND FAMILY. PATIENT ANXIOUS AT TIMES. PATIENT AFEBRILE. PATIENT COMPLAINS OF CHRONIC LOWER BACK PAIN. LIDOCAINE PATCHES PLACED. DILAUDID ADJUNCT PROFESSOR PUMP INFUSING. PATIENT HAS TO BE REMINDED THAT SHE HAS PAIN MEDICINE BUTTON. LUNGS COARSE THROUGHOUT. PATIENT INCREASED FROM 5 L NC TO 8 L OXYMIZER TO KEEP SATS 90% AND GREATER. SHALLOW BREATHS NOTED. PATIENT HAS WEAK, MOIST COUGH. PATIENT IN SR, HR 70S TO 90S. SBP 140S TO 150S. 1+ EDEMA NOTED TO BILAT FEET. PULSES FAINT IN FEET. SCDS IN PLACE. HYPOACTIVE BOWEL SOUNDS NOTED. DATE OF LAST BM UNKNOWN. [place] DRAINING CARLO COLORED URINE. SKIN PALE AND FRAGILE. SCATTERED BRUISES NOTED. COCCYX REDDENED. SCAB NOTED TO L CLAVICLE. EGG MATTRESS IN PLACE. REPOSITIONING Q2H. TPN INFUSING AT 75 MLS/ HOUR. NS TKO. DILAUDID ADJUNCT PROFESSOR AT 0.4 MG/ HOUR. BED LOW, CALL LIGHT IN REACH. DAUGHTER AT BEDSIDE. WILL CONTINUE TO MONITOR PATIENT FREQUENTLY THROUGHOUT SHIFT.
--- NOTE | 2022-03-03 10:23 | NUR ---
SHIFT SUMMARY PATIENT REMAINS CONFUSED. PATIENT HAS TRIED TO NAP A COUPLE OF TIMES. DAUGHTER HAS REMAINED AT BEDSIDE. PATIENT GIVEN PRN TYLENOL RECTALLY AND REMINDED TO USE PAIN MEDICATION BUTTON FOR CHRONIC BACK PAIN. PATIENT REMAINS WEAK BUT ABLE TO MOVE ALL EXTREMITIES. OT WORKED WITH PATIENT THIS AM. SPEECH THERAPY SAW PATIENT THIS AM AND PLACED ON PUREE, THIN LIQUID DIET. PATIENT REMAINS SATTING 90% AND GREATER ON 8 L OXYMIZER. LUNGS REMAIN COARSE. SCHEDULED LASIX STARTED AGAIN THIS SHIFT. PATIENT HAS REMAINED IN SR, HR 70S TO 90S. SBP 1-TEENS TO 150S. NO BM THIS SHIFT. DULCOLAX SUPPOSITORY ORDERED BUT HAS NOT BEEN GIVEN YET. LONDONO DRAINING CARLO COLORED URINE. SCHEDULED LASIX STARTED BACK UP TODAY. PATIENT REPOSITIONED Q2H. TPN REMAINS AT 75 MLS/ HOUR, NS TKO, AND DILAUDID BUSINESS DEVELOPMENT PROFESSIONAL PUMP AT 0.4 MG/ HOUR. SPEECH AND OT WORKED WITH PATIENT THIS AM. DAUGHTER REMAINS AT BEDSIDE. REPORT HAS BEEN GIVEN TO ASSUMING PCU NURSE. PATIENT TO BE TRANSFERRED TO PCU 19 SHORTLY.
--- NOTE | 2022-03-03 11:11 | NUR ---
PATIENT SUCCESSFULLY TRANSFERRED TO PCU 19. ALL BELONGINGS TAKEN BY DAUGHTER. DAUGHTER WALKED BESIDE PATIENT TO NEW ROOM.
--- NOTE | 2022-03-03 11:32 | NUR ---
TRANSFER ASSESSMENT: Pt was transfered over via bed to room PCU19. LS course, crackles throughout with wet cough, non-productive at this time. RR tacypnic at 28-34. Currently on 8L oxymizer biox 91%. HR reg. BT positive. Pulses palp. Pt daughter, Elle, states pt has not had a BM since clips placed. Pt very thin. IV to L FA discontinued R/t redness and leaking. RFA IV with TKO and DIRECTOR OUTCOMES dilaudid. PPN running to [facility] [place]. BLE with foot drop booties in place. Pt oriented to self, family and place. Disoriented to time. Call light in reach. Will continue to monitor.
--- NOTE | 2022-03-03 13:18 | NUR ---
Spiritual care Visit. Pt. is awake in bed and welcomes my visit. Pt. daughter is is present and is presently caring for Pts. hair. Pt. displays evidence of pain and discomfort. With a calming presence give pastoral care and encouragement for Pt. and with Pts. permission, pray for Pt. and family. Pt. fell asleep during prayer. Pts. daughter verbalized gratitude for the spiritual care visit.
--- NOTE | 2022-03-03 13:35 | NUR ---
Pt's daughter is at bedside, has been waiting for shyam who had agreed to 12pm noon today to meet at the room. However, she hasn't shown up, and unable to reach her. I will continue to attempt to reach shyam.
--- NOTE | 2022-03-03 17:53 | NUR ---
SHIFT SUMMARY: Pt sitting up in bed eating dinner with assistance. Pt has continued to moan in pain since transfer to room PCU19 from ICU. Have medicated per orders and repositioned multiple times for comfort. Oxygen has been increased to 10L per oxymizer to keep Biox around 89-92%. PPN running per orders, Dilaudid SILVICULTURE PROFESSOR running. No BM since transfer. No other changes since transfer to PCU. Will report to night RN.
[2022-03-04 04:29] LABS: BASOPHILS ABSOLUTE AUTO 0.04 K/mm3 (0.00-0.23); BASOPHILS PERCENT AUTO 0 % (0-2); EOSINOPHILS ABSOLUTE AUTO 0.16 K/mm3 (0.00-0.68); EOSINOPHILS PERCENT AUTO 1 % (0-6); Hematocrit 28.6 % (33.0-51.0); Hemoglobin 9.3 g/dL (11.5-16.0); IMMATURE GRAN ABSOLUTE AUTO 0.07 K/mm3 (0.00-0.10); IMMATURE GRAN PERCENT AUTO 1 % (0-1); LYMPHOCYTES ABSOLUTE AUTO 0.76 K/mm3 (0.84-5.20); LYMPHOCYTES PERCENT AUTO 7 % (21-46); MONOCYTES ABSOLUTE AUTO 1.06 K/mm3 (0.16-1.47); MONOCYTES PERCENT AUTO 9 % (4-13); Mean Corpuscular HGB Conc 32.5 g/dL (31.5-36.5); Mean Corpuscular Volume 98 fL (80-100); Mean Platelet Volume 10.8 fL (9.1-12.4); NEUTROPHILS ABSOLUTE AUTO 9.18 K/mm3 (1.96-9.15); NEUTROPHILS PERCENT AUTO 82 % (41-73); Platelet Count 358 K/mm3 (150-400); RDW Coefficient Variation 14.6 % (11.7-14.2); RDW Standard Deviation 52.4 fL (35.1-46.3); Red Blood Cell Count 2.91 M/mm3 (3.80-5.20); White Blood Cell Count 11.27 K/mm3 (4.00-11.30)
[2022-03-04 04:46] LABS: Albumin/Globulin Ratio 0.6 (0.8-1.8); Bilirubin, Total 0.2 mg/dL (0.1-1.0); Bun/Creatinine Ratio 52.4 (12.0-20.0); Calcium, Blood 9.1 mg/dL (8.5-10.1); Creatinine, Blood 0.59 mg/dL (0.40-1.00); Globulin, Blood 3.2 g/dL (2.2-4.0); Magnesium, Blood 1.8 mg/dL (1.6-2.4); Potassium, Blood 4.3 mmol/L (3.5-5.5); Total Protein, Blood 5.2 g/dL (6.4-8.2)
--- NOTE | 2022-03-04 06:07 | NUR ---
ADOPTION COORDINATOR SUMMARY PT HAS BEEN ALERT BUT INTERMITTANTLY CONFUSED THIS SHIFT. PT MOANING OUT IN PAIN THROUGHOUT THE SHIFT NEEDING REMINDED THAT SHE CAN PUSH THE BUTTON ON HER COMMISSION AGENT LIVESTOCK PUMP. PT BEGAN THE SHIFT W INCREASED O2 NEEDS ON THE OXYMIZER TP MAINTAIN O2 SATS >90% SO SHE WAS PLACED ON THE BIPAP AND HAS MAINTAINED O2 SATS >92% ALL SHIFT ON THE BIPAP. VSS HAVE REMAINED WNL AND STABLE. PT AFEBRILE. TELE SHOWING SR-ST 88-118 THIS SHIFT. LONDONO CATHETER PATNT AND DRAINING THIS SHIFT. NO BM THIS SHIFT. WILL REPORT TO ONCOMING RN.
--- NOTE | 2022-03-04 08:24 | NUR ---
SCREWHEAD POLISHER Pump dc'd after pt was given oral pain medications and regularly scheduled meds. Repositioned supine.
--- NOTE | 2022-03-04 14:04 | NUR ---
Pt is talking with her Alex and her daughter, Elle, at the bedside. Pt is alert, oriented to person, family and following directions. Elle is attempting to orient her to place and ongoing events. The pt is somewhat confused, answering questions and making jokes. She is at times a little irritable and argumentative with her family, but also making silly, nonsensical comments or singing and laughing in a manner disconnected with ongoing conversations/situation.
--- NOTE | 2022-03-04 17:17 | NUR ---
Met with pt and her daughter Elle at bedside after conferencing with On Line Csr Adrienne. Pt is being recommended for SNF by PT, but daughter Elle is adamant pt will rehab at home with family assist. Pt continues to have moderate pain in her back, joints, and particular pain in R groin and R leg. On 2 separate occasions today, I witnessed what appeared to be a spasm in R leg, and pt cried out each time, asking this RN to rub the bottom of her foot, which did momentary relief. Pt did begin gabapentin today but doesn't appear to be helping with the spasm, which is very visible to the eye. Pt's daughter is remaining optimistic that patient can and will improve enough to evenutally be able to live at home again with minimal assist of CG. Unsure if this is a realistic goal, but will continue with supportive visits for now.
[2022-03-05 04:07] LABS: BASOPHILS ABSOLUTE AUTO 0.06 K/mm3 (0.00-0.23); BASOPHILS PERCENT AUTO 1 % (0-2); EOSINOPHILS ABSOLUTE AUTO 0.14 K/mm3 (0.00-0.68); EOSINOPHILS PERCENT AUTO 1 % (0-6); Hemoglobin 9.2 g/dL (11.5-16.0); IMMATURE GRAN ABSOLUTE AUTO 0.07 K/mm3 (0.00-0.10); IMMATURE GRAN PERCENT AUTO 1 % (0-1); LYMPHOCYTES ABSOLUTE AUTO 1.02 K/mm3 (0.84-5.20); LYMPHOCYTES PERCENT AUTO 9 % (21-46); MONOCYTES PERCENT AUTO 9 % (4-13); Mean Corpuscular HGB 31.5 pg (26.0-34.0); Mean Corpuscular HGB Conc 32.9 g/dL (31.5-36.5); Mean Corpuscular Volume 96 fL (80-100); NEUTROPHILS ABSOLUTE AUTO 9.57 K/mm3 (1.96-9.15); NEUTROPHILS PERCENT AUTO 80 % (41-73); Platelet Count 363 K/mm3 (150-400); RDW Coefficient Variation 14.4 % (11.7-14.2); RDW Standard Deviation 49.5 fL (35.1-46.3); Red Blood Cell Count 2.92 M/mm3 (3.80-5.20); White Blood Cell Count 11.96 K/mm3 (4.00-11.30)
[2022-03-05 04:30] LABS: Alanine Aminotransfer (ALT/SGP 94 U/L (12-78); Albumin/Globulin Ratio 0.7 (0.8-1.8); Alk Phos 90 U/L (50-136); Anion Gap 7 mmol/L (6-16); Aspartate Aminotrans (AST/SGOT 90 U/L (12-37); Bilirubin, Total 0.4 mg/dL (0.1-1.0); Blood Urea Nitrogen 31 mg/dL (8-24); Bun/Creatinine Ratio 52.5 (12.0-20.0); CO2, Blood 29 mmol/L (21-32); Calcium, Blood 8.7 mg/dL (8.5-10.1); Chloride, Blood 98 mmol/L (98-108); Creatinine, Blood 0.59 mg/dL (0.40-1.00); Glomerular Filtration Rate 96 (60-); Glucose, Blood 98 mg/dL (70-99); Magnesium, Blood 1.6 mg/dL (1.6-2.4); Phosphorus, Blood 3.5 mg/dL (2.5-4.9); Potassium, Blood 3.9 mmol/L (3.5-5.5); Sodium, Blood 134 mmol/L (136-145); Triglycerides 146 mg/dL (30-160)
--- NOTE | 2022-03-05 05:09 | NUR ---
SHIFT SUMMARY PT ALERT, CONVERSATIVE, PLEASANT. SP02>90% ON 5-7L NC. VSS. BP APPEARED ELEVATED D/T PT MOVING ARM, [id number] WHEN PT AT REST. LONDONO CATHETER DRAINING TO GRAVITY. NO BM THIS SHIFT. PT C/O OF BACK PAIN, MEDICATED PER EMAR. PT MOVED FREQUENTLY DURING THIS SHIFT, 02 REMOVED WELL 02 FINGER PROBE OCCASIONALLY. PT FOUND LEANING OVER RAIL "TRYING TO GET PAPER FROM THE GROUND". PT REMINDED TO USE CALL LIGHT FOR HELP FOR SAFETY. PT ALSO FOUND STANDING NEXT TO BED, ALARM DID NOT TRIGGER. HELPED PT RETURN TO BED AND INSTRUCTED TO USE CALL LIGHT TO PREVENT FALLS. POWERGLIDE DRESSING REDRESSED. PT CURRENTLY SLEEPING IN ROOM. CALL LIGHT IN REACH.
--- NOTE | 2022-03-05 07:15 | NUR ---
Bedside report received from Janel Joseph RN. Dr. Abbie garland at time of bedside report. Pt is wearing the bipap mask on AVAPS setting, Fio2 35% and RR 20, with spo2 at 100%. She awakens to conversation and assessment, but falls quickly back to sleep. Normal sinus rhythm noted on telemetry bedside monitor. Vital signs are stable. Noguera draining clear yellow urine. Clamped at this time to begin bladder training with view to Discontinue the noguera today. She is repositioned now and wide awake and laughing and talking with staff.
--- NOTE | 2022-03-05 11:26 | NUR ---
Call to Dr. Leiva to request medications for constipation and also to relay conversation that I had with pt's daughter Elle about the possiblity of starting the pt on Seroquel, which Dr. Leiva had mentioned this morning. New orders received.
--- NOTE | 2022-03-05 13:39 | NUR ---
Up to bedside commode to void. Used gait belt, walker, and 1-2 staff assist for transfers. Pt is alert, oriented. Requested pain medication.
--- NOTE | 2022-03-05 16:09 | NUR ---
Pt is sitting up, talking with her daughter Mayela. The pt is cheerful, conversant and has no voiced complaints or concerns at this time.
--- NOTE | 2022-03-05 16:48 | NUR ---
Up to bedside commode to void and had a very small BM. STates that her back is hurting after the activity. Difficulty controlling her pain, especially with increased activity, such as use of bedside commode. Her pain level is at best today 6/10. She says that this is tolerable. Appetite fair; she ate half of her lunch, and half of the magic cup supplement, per the PRODUCT TECHNICIAN verbal report to me.
--- NOTE | 2022-03-05 17:48 | NUR ---
Pt states that her back is still hurting. Also says that she wasn't sure if she was supposed to be working today. 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 Her daughter Elle said that the pt was working at the [facility], but has not worked there since earlier this year. The pt tells me that she is hoping to start working again soon so that she doesn't lose her house.
--- NOTE | 2022-03-05 18:59 | NUR ---
Assisted up to BSC to void and have BM. Needed oxygen flow to be increased to 6 l/min n.c. during the activity. She is very weak, frail, and painful with activity.
[2022-03-06 04:14] LABS: BASOPHILS ABSOLUTE AUTO 0.06 K/mm3 (0.00-0.23); BASOPHILS PERCENT AUTO 1 % (0-2); EOSINOPHILS ABSOLUTE AUTO 0.09 K/mm3 (0.00-0.68); EOSINOPHILS PERCENT AUTO 1 % (0-6); Hematocrit 28.8 % (33.0-51.0); Hemoglobin 9.5 g/dL (11.5-16.0); IMMATURE GRAN ABSOLUTE AUTO 0.11 K/mm3 (0.00-0.10); IMMATURE GRAN PERCENT AUTO 1 % (0-1); LYMPHOCYTES ABSOLUTE AUTO 1.03 K/mm3 (0.84-5.20); LYMPHOCYTES PERCENT AUTO 11 % (21-46); MONOCYTES ABSOLUTE AUTO 0.89 K/mm3 (0.16-1.47); MONOCYTES PERCENT AUTO 10 % (4-13); Mean Corpuscular HGB 31.5 pg (26.0-34.0); Mean Corpuscular Volume 95 fL (80-100); Mean Platelet Volume 10.9 fL (9.1-12.4); NEUTROPHILS ABSOLUTE AUTO 7.07 K/mm3 (1.96-9.15); NEUTROPHILS PERCENT AUTO 77 % (41-73); Platelet Count 403 K/mm3 (150-400); RDW Coefficient Variation 14.4 % (11.7-14.2); RDW Standard Deviation 49.1 fL (35.1-46.3); Red Blood Cell Count 3.02 M/mm3 (3.80-5.20); White Blood Cell Count 9.25 K/mm3 (4.00-11.30)
[2022-03-06 04:47] LABS: Albumin, Blood 2.1 g/dL (3.4-5.0); Albumin/Globulin Ratio 0.7 (0.8-1.8); Bilirubin, Total 0.3 mg/dL (0.1-1.0); Bun/Creatinine Ratio 53.4 (12.0-20.0); Calcium, Blood 9.3 mg/dL (8.5-10.1); Creatinine, Blood 0.58 mg/dL (0.40-1.00); Globulin, Blood 3.1 g/dL (2.2-4.0); Magnesium, Blood 1.9 mg/dL (1.6-2.4); Phosphorus, Blood 5.3 mg/dL (2.5-4.9); Potassium, Blood 4.6 mmol/L (3.5-5.5); Total Protein, Blood 5.2 g/dL (6.4-8.2)
--- NOTE | 2022-03-06 05:55 | NUR ---
SHIFT SUMMARY PT ALERT, PLEASANT. VSS, SP02>90% ON 5-7L NC, BIPAP NOC. NSR/SIT, HR MOSTLY 80'S-100'S. PT C/O OF BACK PAIN, MEDICATED PER EMAR X1 THIS SHIFT. PT UP TO BSC TO VOID, W/ FWW AND HEAVY 1 PERSON ASSIST. PT HAD ONE SMALL BM IN BSC WELL. DURING END OF SHIFT, PT USED CALL LIGHT, STAFF WALKED IN TO FIND PT PLAYING IN AN INCONTINENT BM. BED BATH GIVEN, NEW LINENS, NEW BIPAP MASK REQUESTED FROM RT, ALL CORDS REPLACED. PT'S DAUGHTER WAS IN TO VISIT AT START OF SHIFT. CALL LIGHT IN REACH.
--- NOTE | 2022-03-06 18:38 | NUR ---
SHIFT SUMMARY PT A&O X4. VSS. SPO2 > 92% ON 5L TITRATED DOWN TO 2L NC THIS SHIFT. MONITOR SHOWING SR, HR 80's-100. PT REPORTING PAIN "LIVING AT A 7 TODAY" ON A 1/10 PAIN SCALE. PRN OXYCODONE GIVEN PER PT REQUEST/EMAR X2 THIS SHIFT. PT 1 PERSON ASSIST FOR OOB TRANSFERS. PT COMPLIANT W/ WORKING W/ PT/OT & ST TODAY. PPN INFUSING PER ORDERS. FAMILY AT BEDSIDE.
[2022-03-07 04:03] LABS: BASOPHILS ABSOLUTE AUTO 0.04 K/mm3 (0.00-0.23); BASOPHILS PERCENT AUTO 1 % (0-2); EOSINOPHILS ABSOLUTE AUTO 0.12 K/mm3 (0.00-0.68); EOSINOPHILS PERCENT AUTO 1 % (0-6); Hematocrit 27.7 % (33.0-51.0); IMMATURE GRAN ABSOLUTE AUTO 0.19 K/mm3 (0.00-0.10); IMMATURE GRAN PERCENT AUTO 2 % (0-1); LYMPHOCYTES ABSOLUTE AUTO 1.08 K/mm3 (0.84-5.20); LYMPHOCYTES PERCENT AUTO 13 % (21-46); MONOCYTES PERCENT AUTO 12 % (4-13); Mean Corpuscular HGB 31.4 pg (26.0-34.0); Mean Corpuscular HGB Conc 32.5 g/dL (31.5-36.5); Mean Corpuscular Volume 97 fL (80-100); Mean Platelet Volume 10.8 fL (9.1-12.4); NEUTROPHILS PERCENT AUTO 72 % (41-73); Platelet Count 382 K/mm3 (150-400); RDW Coefficient Variation 14.5 % (11.7-14.2); RDW Standard Deviation 50.4 fL (35.1-46.3); Red Blood Cell Count 2.87 M/mm3 (3.80-5.20); White Blood Cell Count 8.53 K/mm3 (4.00-11.30)
[2022-03-07 04:23] LABS: Bun/Creatinine Ratio 42.4 (12.0-20.0); Calcium, Blood 9.3 mg/dL (8.5-10.1); Creatinine, Blood 0.71 mg/dL (0.40-1.00); Potassium, Blood 4.8 mmol/L (3.5-5.5)
--- NOTE | 2022-03-07 07:28 | NUR ---
SHIFT SUMMARY PT ALERT AND ORIENTED. AFEBRILE. BP STABLE. HR SR/ST 80-100'S. ON 2-3L SATS OVER 94%. C/O BACK PAIN, HIGH 8.5/10. RELIEF WITH Q4 OXY AND REPOSITIONING. PPN RUNNING PER ORDER FROM [id number]. PT ABLE TO AMBULATE WITH X1 ASSIST FOR ADL'S. PT UNAWARE OF MOBILITY LIMITATIONS, WOULD SWING LEGS OVER RAIL AND SAY SHE IS GETTING UP TO FIND KEYS AND GET READY TO GO HOME. IN BED ASLEEP. REPORT GIVEN TO DALLAS CHAKRABORTY.
--- NOTE | 2022-03-07 14:31 | NUR ---
NO ACUTE EVENTS THIS HALF OF SHIFT. PT ALERT AND ORIENTED X3, FORGETFUL. COOPERATIVE WITH CARE. PT UP TO BEDSIDE COMMODE WITH WALKER AND X1 ASSIST. ABLE TO VOID AND HAVE BM, LOOSE, DARK. PT WORKED WITH PHYSICAL THERAPY. PT COMPLAINED OF CHRONIC BACK PAIN, MEDICATED PER EMAR. PT TITRATED DOWN TO 1 L O2 VIA NASAL CANNULA. REPORT GIVEN TO JACOB CHAKRABORTY ON MEDICAL.
--- NOTE | 2022-03-07 18:21 | NUR ---
PATIENT IS ALERT AND ORIENTED, FORGETFUL AT TIMES. TELE IS IN PLACE. ON 1L O2 VIA NC. DARK GREEN LOOSE BM TODAY. 1PA WITH FWW, GAITBELT. PPN INFUSING. NO NEW CONCERNS. WILL CONTINUE TO MONITOR
--- NOTE | 2022-03-08 04:04 | NUR ---
SHIFT SUMMARY RT REPORTS PATIENT DESTATING INTO THE 70'S AFTER PULLING 1L OF O2 NC OFF. NOW ON 5L O2 NC AND USING BIPAP AT NIGHT FOR A FEW HOURS. STATING 90% ON CONTINUOUS PULSE OXMETRY. TPN INFUSING AT 95 mL/HR AT A VARIBLE RATE SCHEDULE. POWERGLIDE RAFAL INTACT. TELE MONITOR NSR 86. VSS/AFEBRILE. DENIES PAIN AND N/V. CALL LIGHT IN REACH. BED IN LOWEST POSITION. WILL CONTINUE TO MONITOR UNTIL DAY SHIFT NURSE ASSUMES CARE.
[2022-03-08 06:02] LABS: BASOPHILS ABSOLUTE AUTO 0.05 K/mm3 (0.00-0.23); BASOPHILS PERCENT AUTO 1 % (0-2); EOSINOPHILS ABSOLUTE AUTO 0.15 K/mm3 (0.00-0.68); EOSINOPHILS PERCENT AUTO 2 % (0-6); Hematocrit 27.4 % (33.0-51.0); Hemoglobin 9.1 g/dL (11.5-16.0); IMMATURE GRAN ABSOLUTE AUTO 0.19 K/mm3 (0.00-0.10); IMMATURE GRAN PERCENT AUTO 2 % (0-1); LYMPHOCYTES ABSOLUTE AUTO 1.18 K/mm3 (0.84-5.20); LYMPHOCYTES PERCENT AUTO 13 % (21-46); MONOCYTES ABSOLUTE AUTO 1.14 K/mm3 (0.16-1.47); MONOCYTES PERCENT AUTO 12 % (4-13); Mean Corpuscular HGB 31.8 pg (26.0-34.0); Mean Corpuscular HGB Conc 33.2 g/dL (31.5-36.5); Mean Corpuscular Volume 96 fL (80-100); Mean Platelet Volume 10.7 fL (9.1-12.4); NEUTROPHILS PERCENT AUTO 71 % (41-73); Platelet Count 423 K/mm3 (150-400); RDW Coefficient Variation 14.6 % (11.7-14.2); RDW Standard Deviation 50.2 fL (35.1-46.3); Red Blood Cell Count 2.86 M/mm3 (3.80-5.20); White Blood Cell Count 9.21 K/mm3 (4.00-11.30)
[2022-03-08 06:16] LABS: Bun/Creatinine Ratio 39.7 (12.0-20.0); Calcium, Blood 8.9 mg/dL (8.5-10.1); Creatinine, Blood 0.91 mg/dL (0.40-1.00); Potassium, Blood 5.4 mmol/L (3.5-5.5)
--- NOTE | 2022-03-09 04:41 | NUR ---
SHIFT SUMMARY PATIENT HAD NO ACUTE CHANGES. AXOX 3 WITH CONFUSION AT TIMES REPORTING SHE WANTED TO GO INTO THE KITCHEN. PATIENT REORIENTED TO PLACE. POWERGLIDE RAFAL INTACT. TPN INFUSED AT 95 mL/HE. ON 5L O2 NC STATING 90% ON CONTINUOUS PULSE OXIMETRY. WILL DESTAT INTO THE 70'S WHEN UP TO BSC. PULLS NC OFF AND PULSE OXIMETRY PROBE AT TIMES. HAD A FEW DARK STOOLS THIS SHIFT. VSS/AFEBRILE. DENIES PAIN, SOB, AND N/V. TAKES MEDS WHOLE WITH APPLESAUCE. CALL LIGHT IN REACH. BED IN LOWEST POSITION AND ALARM ACTIVATED, IMPULSIVE. WILL CONTINUE TO MONITOR UNTIL DAY SHIFT NURSE ASSUMES CARE.
[2022-03-09 05:03] LABS: BASOPHILS ABSOLUTE AUTO 0.06 K/mm3 (0.00-0.23); BASOPHILS PERCENT AUTO 1 % (0-2); EOSINOPHILS ABSOLUTE AUTO 0.11 K/mm3 (0.00-0.68); EOSINOPHILS PERCENT AUTO 1 % (0-6); Hemoglobin 8.5 g/dL (11.5-16.0); IMMATURE GRAN ABSOLUTE AUTO 0.18 K/mm3 (0.00-0.10); IMMATURE GRAN PERCENT AUTO 2 % (0-1); LYMPHOCYTES ABSOLUTE AUTO 1.16 K/mm3 (0.84-5.20); LYMPHOCYTES PERCENT AUTO 10 % (21-46); MONOCYTES ABSOLUTE AUTO 1.35 K/mm3 (0.16-1.47); MONOCYTES PERCENT AUTO 12 % (4-13); Mean Corpuscular HGB 31.7 pg (26.0-34.0); Mean Corpuscular HGB Conc 32.7 g/dL (31.5-36.5); Mean Corpuscular Volume 97 fL (80-100); Mean Platelet Volume 10.9 fL (9.1-12.4); NEUTROPHILS ABSOLUTE AUTO 8.75 K/mm3 (1.96-9.15); NEUTROPHILS PERCENT AUTO 75 % (41-73); Platelet Count 429 K/mm3 (150-400); RDW Coefficient Variation 14.5 % (11.7-14.2); Red Blood Cell Count 2.68 M/mm3 (3.80-5.20); White Blood Cell Count 11.61 K/mm3 (4.00-11.30)
[2022-03-09 05:28] LABS: Creatinine, Blood 0.81 mg/dL (0.40-1.00); Potassium, Blood 5.1 mmol/L (3.5-5.5)
--- NOTE | 2022-03-09 16:25 | NUR ---
Pt appears to be slightly improving. Her daughter Elle remains very involved. She had asked to check in w palliative care today so I attempted to see her. However, she was on the phone with medicare for quite some time, asking about how much rehab will cost. The pt would benefit substancially from rehab, as she isn't ambulating well.
--- NOTE | 2022-03-09 17:41 | NUR ---
SHIFT SUMMARY NO ACUTE CHANGES DURING SHIFT. PT ALERT AND ORIENTED, FOLLOWS COMMANDS. PT UP TO BATHROOM X 2 ASSIST WITH WALKER. PT UP TO CHAIR DURING MEALS WITH PT/OT. PT REMAINS ON 3-5L NC TO MAINTAIN SATS >90%. PRN PAIN MEDICATION ADMINISTERED ORDERED. WILL CONTINUE TO MONITOR.
--- NOTE | 2022-03-09 19:38 | NUR ---
03/09/221929 PT BP VIA MACHINE AND MANUAL ON RT ARM IS 60/30. PT IS ALERT, BRIGHT, HR IS GOOD AT 8,6 O2 SAT IS 92% OMN O2. B/P TAKEN MANUALLY ON LEFT ARM X2 AND IT IS 130/60. WILL CONTINUE TO MONITOR. REPORT TO LAWSON CHAKRABORTY.
--- NOTE | 2022-03-10 05:05 | NUR ---
SHIFT SUMMARY A/OX3, FORGETFUL AT TIMES. 2P MAX ASSIST WITH FWW TO BATHROOM. DENIES PAIN. SLEEP STUDY COMPLETED THIS SHIFT. CURRENTLY ON 6L NC WITH SATS GREATER THAN 90. VSS, NO ACUTE CHANGES AT THIS TIME. BED IN LOWEST POSITION WITH CALL LIGHT IN REACH. WILL CONTINUE TO MONITOR AND REPORT TO ONCOMING RN.
[2022-03-10 07:46] LABS: BASOPHILS ABSOLUTE AUTO 0.08 K/mm3 (0.00-0.23); BASOPHILS PERCENT AUTO 1 % (0-2); EOSINOPHILS ABSOLUTE AUTO 0.12 K/mm3 (0.00-0.68); EOSINOPHILS PERCENT AUTO 1 % (0-6); Hemoglobin 9.9 g/dL (11.5-16.0); IMMATURE GRAN ABSOLUTE AUTO 0.18 K/mm3 (0.00-0.10); IMMATURE GRAN PERCENT AUTO 2 % (0-1); LYMPHOCYTES ABSOLUTE AUTO 0.85 K/mm3 (0.84-5.20); LYMPHOCYTES PERCENT AUTO 7 % (21-46); MONOCYTES PERCENT AUTO 12 % (4-13); Mean Corpuscular HGB 30.8 pg (26.0-34.0); Mean Corpuscular HGB Conc 31.9 g/dL (31.5-36.5); Mean Corpuscular Volume 97 fL (80-100); Mean Platelet Volume 10.3 fL (9.1-12.4); NEUTROPHILS ABSOLUTE AUTO 9.27 K/mm3 (1.96-9.15); NEUTROPHILS PERCENT AUTO 78 % (41-73); Platelet Count 516 K/mm3 (150-400); RDW Coefficient Variation 14.6 % (11.7-14.2); RDW Standard Deviation 50.8 fL (35.1-46.3); Red Blood Cell Count 3.21 M/mm3 (3.80-5.20)
[2022-03-10 08:05] LABS: Albumin, Blood 2.3 g/dL (3.4-5.0); Albumin/Globulin Ratio 0.6 (0.8-1.8); Bilirubin, Total 0.3 mg/dL (0.1-1.0); Bun/Creatinine Ratio 33.2 (12.0-20.0); Calcium, Blood 9.6 mg/dL (8.5-10.1); Creatinine, Blood 0.99 mg/dL (0.40-1.00); Phosphorus, Blood 4.4 mg/dL (2.5-4.9); Potassium, Blood 5.1 mmol/L (3.5-5.5); Total Protein, Blood 6.3 g/dL (6.4-8.2)
--- NOTE | 2022-03-10 13:24 | NUR ---
Mid Shift Summary AOx2-3. Sats are between 84-94% most of the time. Patient appears to be breathing through mouth. Oxygen needs have increased from 4L to 7L HF NC. Needing some coaching and reminder to breathe in through nose. Encourage use of IS. Very tired, talking only minimally. Also had some emesis at lunch time, refused lunch. Poor appetite. Dr. Porter notified of increasing oxygen needs. XR-Chest and Abdomen-CT ordered. Patient also had some hallucination noted a few minutes ago when assisting patient back into bed for CT scan. Tele: ST 100's. 1-2p FWW and gait belt for transfers. SO at bedside. No c/o pain.
--- NOTE | 2022-03-10 14:32 | NUR ---
Spiritual Care Visit. Pt. is awake in bed and welcomes my visit. Pt. is pleasant but unsettled about the prognosis of her recovery. Listen theraputically with a calming presence. Pt. displays evidence of engagement and trust. [place] with Pt. Pt. verbalizes gratitude for the spiritual care visit.
--- NOTE | 2022-03-10 17:42 | NUR ---
SHIFT SUMMARY PT WAS RETAINING URINE THIS SHIFT. LONDONO PLACED AND 2OOO ML DRAINED. PT IS FELELING MUCH BETTER AND MORE RELIEF FROM THIS. DAUGHTER CAME IN AND WAS CONCERNED PT WAS TOO "DRUGGED UP" DR KELVIN MACDONALD. PT HAS BEEN COMFORTBALE , ALERT AND ORIENTED THIS SHIFT AND STATES HER BACK PAIN HAS IMPROVED WITH HER PATHC. PT WILL BE HAVING THORACENTESIS TOMORROW. SHE AND GEO ARE AWARE/ BED IN LOWEST POSITION AND CALL LIGHT IN REACH
[2022-03-11 04:45] LABS: BASOPHILS ABSOLUTE AUTO 0.06 K/mm3 (0.00-0.23); BASOPHILS PERCENT AUTO 1 % (0-2); EOSINOPHILS ABSOLUTE AUTO 0.07 K/mm3 (0.00-0.68); EOSINOPHILS PERCENT AUTO 1 % (0-6); Hematocrit 27.5 % (33.0-51.0); Hemoglobin 8.7 g/dL (11.5-16.0); IMMATURE GRAN PERCENT AUTO 1 % (0-1); LYMPHOCYTES ABSOLUTE AUTO 1.27 K/mm3 (0.84-5.20); LYMPHOCYTES PERCENT AUTO 13 % (21-46); MONOCYTES ABSOLUTE AUTO 1.52 K/mm3 (0.16-1.47); MONOCYTES PERCENT AUTO 15 % (4-13); Mean Corpuscular HGB 31.2 pg (26.0-34.0); Mean Corpuscular HGB Conc 31.6 g/dL (31.5-36.5); Mean Corpuscular Volume 99 fL (80-100); Mean Platelet Volume 10.6 fL (9.1-12.4); NEUTROPHILS ABSOLUTE AUTO 7.04 K/mm3 (1.96-9.15); NEUTROPHILS PERCENT AUTO 70 % (41-73); Platelet Count 498 K/mm3 (150-400); RDW Coefficient Variation 14.4 % (11.7-14.2); Red Blood Cell Count 2.79 M/mm3 (3.80-5.20); White Blood Cell Count 10.06 K/mm3 (4.00-11.30)
--- NOTE | 2022-03-11 04:54 | NUR ---
SHIFT SUMMARY A/O 2-3, MORE CONFUSED THIS SHIFT WITH VISUAL HALLUCINATIONS. ATTEMPTING TO GET OOB, EASILY REDIRECTED. CURRENTLY ON 6L VIA NC WITH SATS GREATER THAN 90. LONDONO CATHETER PATENT AND DRAINING TO GRAVITY. VSS, NO ACUTE CHANGES AT THIS TIME. BED IN LOWEST POSITION WITH CALL LIGHT IN REACH. WILL CONTINUE TO MONITOR AND REPORT TO ONCOMING RN.
[2022-03-11 05:07] LABS: Albumin/Globulin Ratio 0.6 (0.8-1.8); Bilirubin, Total 0.2 mg/dL (0.1-1.0); Bun/Creatinine Ratio 34.1 (12.0-20.0); Calcium, Blood 9.3 mg/dL (8.5-10.1); Creatinine, Blood 0.85 mg/dL (0.40-1.00); Globulin, Blood 3.4 g/dL (2.2-4.0); Potassium, Blood 4.4 mmol/L (3.5-5.5); Total Protein, Blood 5.4 g/dL (6.4-8.2)
[2022-03-11 05:10] LABS: International Normalized Ratio 1.01; Prothrombin Time Results 10.6 Sec (9.7-11.5)
[2022-03-11 10:17] LABS: Influenza A, PCR NEGATIVE (NEGATIVE); Influenza B, PCR NEGATIVE (NEGATIVE); Resp Syncytial Virus, PCR NEGATIVE (NEGATIVE)
[2022-03-11 10:25] LABS: SARS-Cov-2 (COVID-19) PCR, MMC POSITIVE (NEGATIVE)
--- NOTE | 2022-03-11 13:33 | NUR ---
NOTIFIED PT'S DAUGHTER OSKAR ABOUT PT'S POSITIVE COVID TEST, AND THAT THORACENTESIS MAY TAKE PLACE THIS AFTERNOON.
[2022-03-11 16:08] LABS: Body Fluid WBC Count 640 /mm3 (0-999)
[2022-03-11 16:25] LABS: Albumin, Body Fluid 1.3 g/dL; Glucose, Body Fluid 102 mg/dL; Lactate Dehydrogenase, Body Fl 144 U/L; Protein, Body Fluid 2.3 g/dL; Triglycerides, Body Fluid 5 mg/dL
[2022-03-11 16:32] LABS: pH, Body Fluid 5.6
[2022-03-11 17:06] LABS: RBC Count, Body Fluid 340 /mm3 (0-0)
[2022-03-11 19:36] LABS: Total Cell Count, Body Fluid 100
--- NOTE | 2022-03-11 19:36 | NUR ---
SHIFT SUMMARY: PT TESTED COVID + PRIOR TO THORACENTESIS TODAY. OXYGEN NEEDS VARIED FROM 6 L/MIN TO 9 L/MIN, BUT AFTER THORACENTESIS O2 TITRATED DOWN TO 4 L/MIN HIGH FLOW NC WITH O2 SATS 88-92%. PT IS MOUTH BREATHER, SO NC PLACED IN MOUTH AT TIMES. C/O BACK PAIN; MEDICATED PER EMAR, ALSO HAS FENTANYL PATCH. LONDONO DRAINING ADQUATE URINE. APPETITE MODERATE. OOB TO CHAIR X 1 TODAY. CAN BE CONFUSED AT TIMES. DAUGHTER OSKAR AT BEDSIDE PART OF THE DAY.
[2022-03-11 19:37] LABS: Appearance, Body Fluid Hazy (Clear); Color, Body Fluid L Yellow (None-Yellow)
--- NOTE | 2022-03-12 08:19 | NUR ---
SHIFT SUMMARY: A/OX3, CONTINUED NASAL CANNULA WHILE AWAKE AND CPAP WHILE SLEEPING. 02 INCREASED FROM 4L TO 6L WITH SOME ADJUSTMENT PER RT WITH CPAP PRESSURES TO MAINTAIN O2 SATURATION 88-92%. PT RECEIVED OXYCODONE X2 FOR CHRONIC BACK PAIN, TOLERATED MEDICATION WELL AND WAS ABLE TO SLEEP. MULTIPLE ATTEMPTS MADE TO ENCOURAGE DENTURE REMOVAL WHILE SLEEPING AND CPAP IN PLACE, PT CONTINUED TO REFUSE REMOVAL OF TEETH ALTHOUGH LOOSE IN MOUTH. MEPILEX APPLIED TO COCCYX AND MID SPINE TO PREVENT SKIN BREAKDOWN. ASSIST IN REPOSITIONING WITH PILLOW SUPPORT AND BOOSTING PT REPORTS DIFFICULTY BREATHING LYING ON SIDES. LONDONO CATH IN PLACE DRAINING WELL. BED ALARM REMAINS ACTIVATED, CALL JONES AND BELONGINGS IN REACH, BED IN LOW POSITION.
[2022-03-12 08:28] LABS: BASOPHILS ABSOLUTE AUTO 0.04 K/mm3 (0.00-0.23); BASOPHILS PERCENT AUTO 0 % (0-2); EOSINOPHILS PERCENT AUTO 0 % (0-6); Hematocrit 29.3 % (33.0-51.0); Hemoglobin 9.5 g/dL (11.5-16.0); IMMATURE GRAN ABSOLUTE AUTO 0.08 K/mm3 (0.00-0.10); IMMATURE GRAN PERCENT AUTO 1 % (0-1); LYMPHOCYTES ABSOLUTE AUTO 0.78 K/mm3 (0.84-5.20); LYMPHOCYTES PERCENT AUTO 8 % (21-46); MONOCYTES ABSOLUTE AUTO 0.17 K/mm3 (0.16-1.47); MONOCYTES PERCENT AUTO 2 % (4-13); Mean Corpuscular HGB 31.6 pg (26.0-34.0); Mean Corpuscular HGB Conc 32.4 g/dL (31.5-36.5); Mean Corpuscular Volume 97 fL (80-100); Mean Platelet Volume 10.3 fL (9.1-12.4); NEUTROPHILS PERCENT AUTO 89 % (41-73); Platelet Count 541 K/mm3 (150-400); RDW Coefficient Variation 14.4 % (11.7-14.2); RDW Standard Deviation 51.4 fL (35.1-46.3); Red Blood Cell Count 3.01 M/mm3 (3.80-5.20); White Blood Cell Count 9.97 K/mm3 (4.00-11.30)
[2022-03-12 08:47] LABS: Albumin, Blood 2.2 g/dL (3.4-5.0); Albumin/Globulin Ratio 0.6 (0.8-1.8); Bilirubin, Total 0.2 mg/dL (0.1-1.0); Bun/Creatinine Ratio 19.6 (12.0-20.0); C-REACTIVE PROTEIN, EXT RANGE 7.1 mg/dL (0.000-0.300); Calcium, Blood 9.4 mg/dL (8.5-10.1); Creatinine, Blood 0.87 mg/dL (0.40-1.00); Globulin, Blood 3.9 g/dL (2.2-4.0); Potassium, Blood 4.3 mmol/L (3.5-5.5); Total Protein, Blood 6.1 g/dL (6.4-8.2)
--- NOTE | 2022-03-12 14:36 | NUR ---
PT ARRIVED TO UNIT, ALERT AND ORIENTED AT THIS TIME HOWEVER IS FORGETFUL. PT ON HIGH FLOW NASAL CANNULA AT 8 L O2. LONDONO IN PLACE, DRAINING TO GRAVITY. TELEMETRY IN PLACE. TAB ALARM ON. VSS, WCTM.
--- NOTE | 2022-03-12 16:53 | NUR ---
SHIFT SUMMARY NO ACUTE EVENTS SINCE ARRIVAL TO UNIT, VSS. PT CAN BE CONFUSED AT TIMES AND WILL PULL OFF HER HIGH FLOW NASAL CANNULA THINKING IT IS A FACEMASK. PT IS EASILY REDIRECTED. CHAIR ALARM IN PLACE IN BED. CALL LIGHT WITHIN REACH, BED IN LOW POSITION.
--- NOTE | 2022-03-12 17:00 | NUR ---
Spiritual Care Visit. Pt. is awake in bed and welcomes my visit. Pt. is unsettled by the new complication of Covid. Pt. verbalizes concern that God is punishing her somehow. With a calming presence pastoral developmental training counselor is given. Pt. displays evidence of agreement and mild catharsis. PCU nurse Lee Ann arrives to give medicine and record vitals. Prayed with and for the Pt. and Pt. prayed for me and her family. Pt. had difficulty keeping her oxygen canula in her nose, resulting in an O2 drop. Nurse Lee Ann returned to correctly fit the Pt. Pt. verbalized gratitude for the spiritual care visit.
[2022-03-13 03:50] LABS: BASOPHILS ABSOLUTE AUTO 0.02 K/mm3 (0.00-0.23); BASOPHILS PERCENT AUTO 0 % (0-2); EOSINOPHILS ABSOLUTE AUTO 0.01 K/mm3 (0.00-0.68); EOSINOPHILS PERCENT AUTO 0 % (0-6); Hematocrit 28.5 % (33.0-51.0); Hemoglobin 9.1 g/dL (11.5-16.0); IMMATURE GRAN ABSOLUTE AUTO 0.06 K/mm3 (0.00-0.10); IMMATURE GRAN PERCENT AUTO 1 % (0-1); LYMPHOCYTES ABSOLUTE AUTO 2.15 K/mm3 (0.84-5.20); LYMPHOCYTES PERCENT AUTO 19 % (21-46); MONOCYTES ABSOLUTE AUTO 1.11 K/mm3 (0.16-1.47); MONOCYTES PERCENT AUTO 10 % (4-13); Mean Corpuscular HGB Conc 31.9 g/dL (31.5-36.5); Mean Corpuscular Volume 97 fL (80-100); Mean Platelet Volume 10.1 fL (9.1-12.4); NEUTROPHILS PERCENT AUTO 71 % (41-73); Platelet Count 558 K/mm3 (150-400); RDW Coefficient Variation 14.3 % (11.7-14.2); RDW Standard Deviation 50.3 fL (35.1-46.3); Red Blood Cell Count 2.94 M/mm3 (3.80-5.20); White Blood Cell Count 11.35 K/mm3 (4.00-11.30)
[2022-03-13 04:05] LABS: Bun/Creatinine Ratio 20.6 (12.0-20.0); Creatinine, Blood 0.87 mg/dL (0.40-1.00); Potassium, Blood 3.1 mmol/L (3.5-5.5)
--- NOTE | 2022-03-13 07:19 | NUR ---
NO ACUTE EVENTS OVERNIGHT. PT DOES CONTINUE TO HAVE INTERMITTENT CONFUSION ABOUT HER LOCATION AND CURRENT STATE OF HEALTH. SHE FORGETS HER LIMITATIONS AND ATTEMPTS TO GET OUT OF BED UNATTENDED. SHE NEEDS FREQUENT REDIRECTION TO NOT PULL AT OR REMOVE HER NASAL CANNULA, PULSE OXIMITER, WASTE DISPOSAL ATTENDANT, ID BAND AND LONDONO CATHETER STAT-LOCK. MS. 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 THESE DEPARTMENTS SEEM TO BE IN A STORE OR WAREHOUSE FACILITY. OXYGEN NEEDS HAVE LESSENED AND MS. STANLEY IS NOW ON 2-3 LPM NASAL CANNULA COMPARED TO THE 7 LPM AT THE START OF THE SHIFT.
--- NOTE | 2022-03-13 10:39 | NUR ---
AM NOTE: PATIENT CONFUSED UPON WAKING THIS AM AND CLEARING THROUGHOUT MORNING. ABLE TO STATE NAME, , PLACE, EVENT, SITUATION AND MORE. PERRLA, WEARING GLASSES. DENIES NUMBNESS/TINGLING. COMPLAINS OF CHRONIC BACK PAIN, LIDOCAINE PATCHES PLACED TO LOWER BACK. FENTANYL PATCHES TO LEFT UPPER SHOULDER. OVERALL VERY WEAK. USING WALKER AND GAIT BELT WITH 1-2 PERSON ASSIST. BED ALARM AND CHAIR ALARM IN PLACE AT ALL TIMES. WORKED WITH PT AND OT THIS AM. UP TO CHAIR WITH PT. ON 5-7L HIGH FLOW NASAL CANNULA SATING LOW 90'S. UPPER LOBES CLEAR WITH EXPIRATORY WHEEZE. BASES DIMINISHED. OCCASIONAL COUGH WITH PRODUCTIVE PHLEM. DENIES ABDOMINAL PAIN/NAUSEA. EATING WELL FOR BREAKFAST. DRINKING FLUIDS. TAKING PILLS WHOLE WITH WATER. LONDONO CATH IN PLACE DRAINING TO GRAVITY. CATH CARE COMPLETED THIS AM. ATTENDS IN PLACE WELL. SKIN OVERALL FRAGILE AND SCATTERED BRUISING. RED COCCYX AND THORACIC SPINE. MEPILEX IN PLACE. CALL LIGHT IN REACH. PATIENT ABLE TO VERBALIZE HOW TO CALL FOR HELP USING CALL LIGHT. THIS RN HEARD CHAIR ALARM AND RAN INTO ROOM. PATIENT ON FLOOR SITTING UPRIGHT NEXT TO CHAIR. PATIENT STATES "I TRIED TO THROW MY WATER AWAY IN THAT TRASH CAN AND MISSED". PATIENT ATTEMPTED TO THROW WATER AWAY AND FELL OUT OF CHAIR. OTHER RN'S IN TO HELP LIFT PATIENT BACK TO BED. COMPLAINS OF LEFT SIDED HIP PAIN. ABLE TO MOVE LEFT LOWER EXTREMITIY AND WIGGLE TOES. VITAL SIGNS STABLE. DR. JOHNS CALLED AND ORDERS FOR HIP XRAY IN PLACE. BED ALARM IN PLACE.
--- NOTE | 2022-03-13 13:46 | NUR ---
PATIENT RESTING IN BED. DENIES PAIN. HIP XRAY RESULTED, AND DR. JOHNS NOTIFIED. REMDESIVIR INFUSING AT THIS TIME. PLAN TO INFUSE KCL AFTER. CALL LIGHT IN REACH. BED ALARM IN PLACE. DENIES NEEDS AT THIS TIME.
--- NOTE | 2022-03-13 18:09 | NUR ---
SHIFT SUMMARY: PATIENT SEEMS TO BE MORE CONFUSED AND AGGITATED IN THE EVENING. RESTLESS IN BED. DAUGHTER AT BEDSIDE THIS AFTERNOON/EVENING. ON 4L HIGH FLOW NASAL CANNULA SATING LOW 90'S. OCCASIONAL COUGH. TELE CONTINUES TO SHOW SINUS RHYTHM WITH HR 80'S. BP STABLE. COMPLAINS OF LEFT HIP SORENESS WHEN MOVING, MEDICATED PER EMAR. NON WEIGHT BEARING ON LEFT SIDE. CT OF PELVIS COMPLETED, RESULTS PENDING. EATING SMALL AMOUNTS OF FOOD THROUGHOUT DAY. BED ALARM AND CHAIR ALARM ON AT ALL TIMES. LONDONO CATH REMAINS IN PLACE DRAINING CLEAR/YELLOW URINE. DENIES NEEDS AT THIS TIME. ALARM ON AND BED IN LOW LOCKED POSITION. WILL CONTINUE TO MONITOR AND REPORT OFF TO ONCOMING RN.
--- NOTE | 2022-03-13 20:15 | NUR ---
CALL TO MD NICOLE - LON BALDERAS PATIENT ATTEMPTED TO EXIT HER BED UNASSISTED MULTIPLE TIMES SINCE THE CHANGE OF SHIFT. SHE IS IN AN ISOLATION ROOM FOR COVID PRECAUTIONS AND THIS MAKES IT CHALLENGING FOR STAFF TO GET TO PATIENT QUICKLY DUE TO NEED FOR DONNING PPE PRIOR TO ENTERING THE ROOM. PATIENT SUSTAINED A FALL EARLIER IN THE DAY RESULTING IN FRACTURE TO HER LEFT TROACHANTER. HIGH FALL RISK. FREQUENTLY CONFUSED ABOUT WHEREABOUTS AND CURRENT STATE OF HEALTH. SHE IS NOT REMEMBERING INSTRUCTIONS REGARDING DOCTOR'S ORDERS FOR NO WEIGHT BEARING ON LEFT LEG AND THAT SHE IS NOT TO GET OUT OF BED WITHOUT STAFF PRESENT TO ASSIST HER. REQUEST MADE FOR MATT VEST TO REDUCE PATIENT'S RISK FOR FALL DUE TO BONE FRACTURES, PERSISTENT CONFUSION AND IMPULSIVITY. ORDERS RECEIVED FOR SAME. MATT VEST PLACED ON PATIENT. BED ALARM ACTIVATED. FREQUENT MONITORING OF PATIENT.
--- NOTE | 2022-03-13 20:40 | NUR ---
OBSERVED PATIENT THROUGH WINDOW OF DOOR WITH ONE LEG HANGING OVER THE EDGE OF THE BED AND ONE MATT VEST STRAP IN HER HAND. SHE REACHED OVER THE SIDE OF THE BED AND UNTIED THE STRAP. RELEASING IT FROM THE BEDFRAME. ROSALBA STATED THAT SHE NEEDS TO "GO UPSTAIRS TO GET INTO MY BED." ADVISED ROSALBA THAT SHE IS IN HER OWN HOSPITAL ROOM WITH HER OWN BED AND THAT SHE DOESN'T NEED TO LEAVE THE ROOM. REPEATED INSTRUCTIONS NOT TO PULL AT ANY CORDS ATTACHED TO HER, INCLUDING THE MATT VEST STRAP, THE MEDICAL RECORDS TECH, PULSE OXIMETER AND OXYGEN TUBING. PHONE PROVIDED TO PATIENT SO THAT SHE MAY CALL HER SIGNIFICANT OTHER. WILL CONTINUE TO MONITOR.
--- NOTE | 2022-03-13 20:58 | NUR ---
PATIENT'S DAUGHTER OSKAR CALLED REQUESTING RESULTS OF CT SCAN OF PELVIS. REFERRED PATIENT REQUEST TO DR. Allison BALDERAS, WHO WILL CALL OSKAR TO DISCUSS THE RESULTS. OSKAR'S PHONE NUMBER GIVEN TO PROVIDER
--- NOTE | 2022-03-14 00:13 | NUR ---
CPAP REMOVED BY PATIENT X 3 IN THE PAST 30 MINUTES. PT STATES THAT SHE NEEDS TO TAKE IT OFF TO GET TO A BEVERAGE STATION OR SO SHE CAN GET DRESSED AND GO TO THE BAR UPSTAIRS. ATTEMPTS TO REORIENT PATIENT TO SURROUNDINGS SUCCESSFUL IN SHORT TERM BUT NOT LASTING FOR LONGER THAN 5 -10 MINUTES. SPO2 DROPS INTO HIGH 70S TO LOW 80S EACH TIME SHE REMOVES THE CPAP MASK. DECISION MADE TO REMOVE MASK AND HIGH FLOW NASAL CANNULA BACK IN PLACE. WILL CONTINUE TO MONITOR
--- NOTE | 2022-03-14 01:15 | NUR ---
OBSERVED PATIENT ATTEMPTING TO GET OUT OF BED WITH ONE LEG OVER THE SIDE RAIL. SHE HAD LOOSENED THE RIGHT SIDED STRAP OF HER MATT VEST FROM THE BED FRAME. THIS RESULTED IN PATIENT SUSTAINING A SKIN TEAR TO HER RIGHT HAND/WRIST. SLIGHT BLEEDING AT SITE. BANDAID PLACED. ROSALBA BELIEVES THAT SHE IS AT WORK AND MAKES REPEATED REQUESTS TO TAKE HER LAST BREAK. SHE DOES NOT BELIEVE THAT SHE IS AT THE HOSPITAL & CONTINUES TO INSIST THAT SHE IS AT WORK, THAT HER EVENTS ASSISTANT IS HER WORK RADIO AND THAT THE CALL LIGHT IS HER PHONE. PER DISCUSSION WITH HOT HEADER OPERATOR LAURA, THIS APPEARS TO BE PATIENT'S BASELINE CONFUSION LEVEL BASED UPON PATIENT'S TIME ON PCU IN THE EARLY PART OF HER HOSPITAL STAY. WILL CONTINUE TO MONITOR
--- NOTE | 2022-03-14 04:10 | NUR ---
ENTERED PT ROOM FOR 0400 ASSESSMENT, OBSERVED PT TO HAVE REMOVED HER OXYGEN TUBING AND PULSE OXIMETER. REPLACED BOTH AND REPOSITIONED. MS. STANLEY HAD A AN INCONTINENT EPISODE OF STOOL, LACI CARE PERFORMED, BED LINENS CHANGED.
--- NOTE | 2022-03-14 06:01 | NUR ---
SEE PREVIOUS NOTES FOR DETAILS OF SHIFT. AT THIS TIME PATIENT APPEARS TO BE RESTING COMFORTABLY. CPAP IN PLACE WITH 8 LPM OXYGEN BLEED. WILL CONTINUE TO MONITOR.
[2022-03-14 06:43] LABS: Bun/Creatinine Ratio 17.9 (12.0-20.0); Creatinine, Blood 0.84 mg/dL (0.40-1.00); Potassium, Blood 3.9 mmol/L (3.5-5.5)
--- NOTE | 2022-03-14 10:43 | NUR ---
AM NOTE: PATIENT ALERT AND ORIENTED TO SELF, FAMILY, AND PLACE. INTERMITTENT BOUTS OF WORSE CONFUSION THROUGHOUT MORNING. DISCUSSING THAT SHE WAS IN THE GARAGE WITH NO REFRIDGERATOR WITH STAFF. DENIES NUMBNESS/TINGLING. ABLE TO MOVE ALL EXTREMITIES FREELY AND MOVING SELF IN BED. COMPLAINS OF HIP AND BACK SORNESS BUT DENIES NEED FOR PO PAIN MEDICATION. LIDOCAINE PATCHES APPLIED TO LOWER BACK. Q2 TURNING AND NEEDED. BEDREST AND NONWEIGHT BEARING ON LEFT SIDE. INCONTINENT BOWEL MOVEMENT THIS AM. ON 4L HIGH FLOW NASAL CANNULA SATING MID 90'S. LUNGS SOUNDING CLEAR AND DIM THROUGHOUT. OCCASIONAL MOIST SOUNDING COUGH. NO SWALLOWING ISSUES NOTED. ATE SMALL AMOUNT OF BREAKFAST. SLEEPING AT THIS TIME. TELE SHOWING SINUS RHYTHM WITH PJCS AND PACS. HR 80'S. DENIES CHEST PAIN/PRESSURE. MORN BP ELEVATED, PO MEDS GIVEN. DENIES ABDOMINAL PAIN/NAUSEA. [place] CATH REMAINS IN PLACE DRAINING CLEAR/YELLOW URINE TO GRAVITY. ATTENDS IN PLACE. CATH CARE AND LACI CARE COMPLETED THIS AM AND WILL CONTINUE TO MONTIOR FOR INCONTINENCE. CALL LIGHT IN REACH. BED ALARM IN PLACE. SON AT BEDSIDE. PATIENT EDUCATED ON SAFETY AND FALL RISK. LEFT FA IV FLUSHING WELL AND SALINE LOCKED. MATT VEST AND ALL 4 SIDERAILS UP DUE TO PATIENT RESTLESS AT TIMES AND ATTEMPTING TO GET OUT OF BED. WILL CONTINUE TO MONITOR.
--- NOTE | 2022-03-14 12:35 | NUR ---
DR. KING IN TO SEE PATIENT AND DISCUSS CT RESULTS WITH FAMILY. WEIGHT BEARING STATUS - RIGHT SIDE TOE TOUCH AND LEFT SIDE TOLERATED. THIS RN AND SEO PROFESSIONAL IN ROOM TO MOVE PATIENT TO RECLINER. WALKER AND GAIT BELT USED. PATIENT ABLE TO FOLLOW INSTRUCTIONS TO ONLY TOE TOUCH ON RIGHT SIDE. STAND AND PIVOT TRANSFER WITH 2 PERSON ASSIST. RECLINER PLACED IN VIEW FROM WINDOW. CHAIR ALARM IN PLACE. MATT VEST ON AND SECURE. TRASH CAN AND ALL PERSONAL ITEMS IN REACH. CALL LIGHT IN REACH AND PATIENT ABLE TO TEACH BACK HOW TO CALL. EATING LUNCH AT THIS TIME.
--- NOTE | 2022-03-14 17:52 | NUR ---
SHIFT SUMMARY: PATIENT REMAINS PLEASENT THROUGHOUT SHIFT. INTERMIT BOUTS OF CONFUSION. VERY KIND AND COOPERATIVE WITH STAFF. NEURO REMAINS UNCHANGED FROM AM ASSESSMENT. ON 1L NASAL CANNULA SATING LOW 90'S. OCCASIONAL MOIST COUGH. TELE CONTINUES TO SHOW SINUS RHYTHM WITH HR 80'S. OCCASIONAL PACS AND PJCS. DENIES CHEST PAIN/PRESSURE. EATING SMALL AMOUNTS THROUGHOUT DAY. EATING DINNER AT THIS TIME. ATTENDS IN PLACE 2 EPISODES OF BOWEL INCONTINENCE AND ONE EPISODE USING BED CONTRERAS. [place] CATH REMAINS IN PLACE DRAINING CLEAR/YELLOW URINE. PT IN TO WORK WITH PATIENT ON SIT TO STAND. WEIGHT BEARING PRECAUTIONS IN PLACE SEE ORDERS. PATIENT ABLE TO FOLLOW WEIGHT BEARING STATUS WITH CONTINUAL REMINDERS. SAFETY REMINDERS CONTINUED THROUGHOUT SHIFT WITH STAYING IN CHAIR AND USING CALL LIGHT. CHAIR ALARM IN PLACE AT THIS TIME. Q2 TURNING, USING PILLOWS TO PATIENTS COMFORT. SITTING UPRIGHT IN RECLINER WITH MATT VEST IN PLACE. DENIES NEEDS AT THIS TIME. ALL PERSONAL BELONGINGS IN REACH WELL TRASH CAN. THIS RN ABLE TO VISUALIZE PATIENT FROM WINDOW WHEN NOT IN ROOM. ALL SAFETY MEASURES IN PLACE.
--- NOTE | 2022-03-15 07:12 | NUR ---
NO ACUTE EVENTS OVERNIGHT. PT APPEARED TO SLEEP MORE RESTFULLY OVERNIGHT COMPARED TO TWO PREVIOUS NIGHTS. SIGNIFICANTLY FEWER EPISODES OF PULLING AT LINES AND OF ATTEMPTING TO GET OUT OF BED UNASSISTED. SUPPLEMENTAL OXYGEN WAS INCREASED FROM 1 LPM TO 4 LPM WHILE AWAKE, AND FROM 4 LPM TO 8 LPM WHILE SLEEPING. OXYGEN WAS TITRATED BACK DOWN TO 4 LPM SLOWLY THROUGHOUT THE NIGHT.
--- NOTE | 2022-03-15 10:56 | NUR ---
AM NOTE: PATIENT MUCH MORE ALERT THIS AM COMPARED TO PRIOR SHIFTS. ABLE TO ANSWER ALL ORIENTING QUESTIONS. SLEEPY AND TIRED. AM CARE COMPLETED. PERRMILO, WEARING GLASSESS. STATES SHE HAS SOME NUMBNESS TO LEFT LEG. ON 2L HIGH FLOW NASAL CANNULA SATING LOW 90'S. COARSE/RHONCHI LUNG SOUNDS. SITTING UPRIGHT THROUGHOUT DAY MUCH POSSIBLE. ENCOURAGED TO USE PICKLE AND IS. OCCASIONAL MOIST WET COUGH. NO SWALLOWING ISSUES NOTED. ON TELE, SHOWING SINUS RHYTHM WITH HR 80'S. DENIES CHEST PAIN/PRESSURE. BP ELEVATED THIS AM, PO MORN MEDS GIVEN. DENIES ABDOMINAL PAIN/NAUSEA. EATING SMALL AMOUNTS. COMPLAINS OF LEFT SIDED RIB SORENESS. PO PAIN MEDICATION GIVEN AND FENTANYL PATCHES REPLACED. PATCHES TO LEFT SHOULDER. PATIENT STATES SHE DEALS WITH SEVERE CHRONIC BACK AND HIP PAINS. WHEN ASKING HER ABOUT HER PAIN SHE SAID "IT IS ALWAYS THERE SO I TRY TO IGNORE IT". SHE ALSO REPORTED SHE NORMALLY JUST TRYS TO REPORT "NEW PAIN". THIS RN DESCRIBED IMPORTANCE OF DISCUSSING PAIN WITH NURSES AND DOCTORS SO WE CAN BETTER UNDERSTAND AND HELP CONTROL PAIN. SLEEPING IN BED AT THIS TIME. BED ALARM IN PLACE WELL MATT VEST. WILL ATTEMPT TO GET UPRIGHT IN RECLINER THIS AFTERNOON FOR LUNCH AND DINNER. PATIENT WANTING TO SLEEP A LITTLE LONGER THIS AM. LIDOCAINE PATCHES APPLIED TO LOWER BACK. MEPILEX'S CHANGED ON BACK AND COCCYX. Q2 TURNING AND NEEDED. PATIENT ABLE TO TURN SELF IN BED, HELPING POSITION PILLOWS FOR COMFORT. RIGHT TOE TOUCH AND LEFT TOLERATED WEIGHT BEARING STATUS. SPOKE WITH DAUGHTER OSKAR ON PHONE THIS AM AND GAVE UPDATE. CALL LIGHT IN REACH AND PATIENT ABLE TO TEACH BACK HOW TO USE CALL FOR HELP WITH CALL LIGHT. WILL CONTINUE TO MONITOR.
--- NOTE | 2022-03-15 16:15 | NUR ---
PATIENT RR AND WORK OF BREATHING INCREASED LATE AFTERNOON. LUNGS SOUNDING MORE COARSE SINCE THIS AM. DR. JOHNS CALLED TO ASSESS PATIENT. STAT CHEST XRAY ORDERED, WELL BREATHING TREATMENT, AND IV LASIX X1. SEE EMAR. PATIENT STATES SHE IS FEELING BETTER POST BREATHING TREATMENT. DAUGHTER CALLED TO UPDATE. BP STABLE AND MONITORING CLOSELY. REMAINS ON 2L NASAL CANNULA SATING LOW 90'S. WILL CONTINUE TO MONITOR.
--- NOTE | 2022-03-15 17:56 | NUR ---
SHIFT SUMMARY: PATIENT REMAINS ALERT AND ORIENTED X3 THROUGHOUT SHIFT. SLEEPING ON AND OFF. Q2 TURNING AND NEEDED FOR COMFORT. UP IN RECLINER AT THIS TIME WITH FAMILY AT BEDSIDE. ABLE TO MAKE NEEDS KNOWN AND CALLING FOR NEEDS THIS SHIFT. NO EVENTS WITH TELE, REMAINS SINUS RHYTHM WITH HR 80'S. DENIES CHEST PAIN/PRESSURE. EATING SMALL AMOUNTS OF FOOD. DRINKING FLUIDS. SEE LAST NOTE REGARDING RESPIRATORY STATUS. REMAINS ON 2L NASAL CANNULA SATING 90'S. LUNGS SOUNDING LESS COARSE WITH LASIX DOSE, GREAT [place] OUTPUT. COMPLAINS OF PAIN TO COCCYX THROUGHOUT SHIFT, MEDICATED PER EMAR WITH SOME RELIEF. DENIES NEEDS AT THIS TIME. CHILDREN AT BEDSIDE. MATT VEST REMAINS IN PLACE, CHAIR ALARM ON. WILL CONTINUE TO MONITOR AND REPORT OFF TO ONCOMING RN.
[2022-03-16 04:00] LABS: BASOPHILS ABSOLUTE AUTO 0.02 K/mm3 (0.00-0.23); BASOPHILS PERCENT AUTO 0 % (0-2); EOSINOPHILS PERCENT AUTO 0 % (0-6); Hematocrit 30.7 % (33.0-51.0); Hemoglobin 10.4 g/dL (11.5-16.0); IMMATURE GRAN PERCENT AUTO 1 % (0-1); LYMPHOCYTES ABSOLUTE AUTO 1.73 K/mm3 (0.84-5.20); LYMPHOCYTES PERCENT AUTO 18 % (21-46); MONOCYTES ABSOLUTE AUTO 0.68 K/mm3 (0.16-1.47); MONOCYTES PERCENT AUTO 7 % (4-13); Mean Corpuscular HGB 30.9 pg (26.0-34.0); Mean Corpuscular HGB Conc 33.9 g/dL (31.5-36.5); NEUTROPHILS ABSOLUTE AUTO 7.04 K/mm3 (1.96-9.15); NEUTROPHILS PERCENT AUTO 74 % (41-73); RDW Coefficient Variation 14.2 % (11.7-14.2); RDW Standard Deviation 47.8 fL (35.1-46.3); Red Blood Cell Count 3.37 M/mm3 (3.80-5.20); White Blood Cell Count 9.57 K/mm3 (4.00-11.30)
[2022-03-16 04:04] LABS: Mean Corpuscular Volume 91 fL (80-100); Mean Platelet Volume 10.3 fL (9.1-12.4); Platelet Count 462 K/mm3 (150-400)
[2022-03-16 04:17] LABS: Albumin, Blood 2.3 g/dL (3.4-5.0); Anion Gap 8 mmol/L (6-16); Blood Urea Nitrogen 22 mg/dL (8-24); Bun/Creatinine Ratio 26.8 (12.0-20.0); CO2, Blood 30 mmol/L (21-32); Calcium, Blood 8.1 mg/dL (8.5-10.1); Chloride, Blood 100 mmol/L (98-108); Creatinine, Blood 0.82 mg/dL (0.40-1.00); Glomerular Filtration Rate 76 (60-); Glucose, Blood 96 mg/dL (70-99); Magnesium, Blood 0.9 mg/dL (1.6-2.4); Phosphorus, Blood 3.1 mg/dL (2.5-4.9); Potassium, Blood 3.4 mmol/L (3.5-5.5); Sodium, Blood 138 mmol/L (136-145)
--- NOTE | 2022-03-16 06:07 | NUR ---
NO ACUTE EVENTS OVERNIGHT. MS. STANLEY' MENTATION IS MUCH IMPROVED FROM THE PREVIOUS 3 NIGHTS. SHE IS ALERT & ORIENTED. NO OFF THE WALL COMMENTS. NO THINKING SHE IS AT WORK. AWARE THAT SHE IS IN THE HOSPITAL AND HAS COVID-19. SHE WAS COMPLIANT WITH THE USE OF HER CALL LIGHT. DID NOT MAKE ONE ATTEMPT TO GET OUT OF THE CHAIR OR BED WITHOUT STAFF ASSISTANCE. DECISION WAS MADE TO DISCONTINUE THE MATT VEST RESTRAINT LAST NIGHT AT 21:46. MS. STANLEY REPORTS SHE IS BREATHING EASIER AND DOESN'T FEEL SHORT OF BREATH. SHE DOES CONTINUE TO EXPERIENCE DYSPNEA WITH TRANSFERS TO/FROM BED AND CHAIR, BUT SHE DID RECOVER QUICKER THIS EVENING THAN IN THE PREVIOUS 3 NIGHTS I HAVE BEEN HER NURSE. SHE CONTINUES TO REQUIRE SUPPLEMENTAL OXYGEN AND IS CURRENTLY ON 3-4 LPM WHILE SLEEPING. SHE WAS COMPLIANT WITH WEARING THE CPAP FOR APPROXIMATELY 90 MINUTES.
--- NOTE | 2022-03-16 16:05 | NUR ---
Brief theraputic visit with patients daughter. She is expressing significant stress.
--- NOTE | 2022-03-16 18:23 | NUR ---
SHIFT SUMMARY PT A&O X3, EPISODES OF FORGETFULNESS & CONFUSION. MATT VEST REAPPLIED THIS AM FOR FALL PREVENTION. PT CALLING OUT IN RM THIS AFTERNOON "CAN YOU UNDO THIS SO I CAN GET UP?" PT REMINDED THAT IS WHY THE VEST IS IN PLACE, SO THAT SHE CAN'T GET UP W/ OUT ASSISTANCE. PT ASSISTED W/ TRANSFERS BY 2 PEOPLE W/ FWW & GB. PT DIFFICULTY NOT PUTTING WEIGHT ON RLE DESPITE FREQUENT REMINDING FOR TOE TOUCH ONLY ON RLE PER MD RECOMMENDATION. PT SELF REMOVED PIV X1 TODAY, IV FOUND INFUSING ON THE FLOOR. WHEN ASKING WHY THE IV IS ON THE FLOOR, PT LOOKING AT THE IV ON THE FLOOR SAYING "WHAT IV, WHERE? I DIDN'T PULL ANYTHING OUT." PT VSS. SPO2 > 92% ON 3L NC. MONITOR SHOWING NSR, HR 60s-70s. [place] CATH PATENT & DRAINING CLEAR YELLOW URINE. PT W/ SOFT, BROWN, LOOSE BM. PT IN BED W/ MATT VEST ON, BED ALARM ON, CALL LIGHT IN REACH.
[2022-03-17 04:01] LABS: BASOPHILS PERCENT AUTO 0 % (0-2); EOSINOPHILS PERCENT AUTO 0 % (0-6); Hematocrit 30.4 % (33.0-51.0); Hemoglobin 9.8 g/dL (11.5-16.0); IMMATURE GRAN ABSOLUTE AUTO 0.08 K/mm3 (0.00-0.10); IMMATURE GRAN PERCENT AUTO 1 % (0-1); LYMPHOCYTES ABSOLUTE AUTO 1.46 K/mm3 (0.84-5.20); LYMPHOCYTES PERCENT AUTO 18 % (21-46); MONOCYTES PERCENT AUTO 7 % (4-13); Mean Corpuscular HGB 30.3 pg (26.0-34.0); Mean Corpuscular HGB Conc 32.2 g/dL (31.5-36.5); Mean Corpuscular Volume 94 fL (80-100); Mean Platelet Volume 10.1 fL (9.1-12.4); NEUTROPHILS ABSOLUTE AUTO 6.01 K/mm3 (1.96-9.15); NEUTROPHILS PERCENT AUTO 74 % (41-73); Platelet Count 572 K/mm3 (150-400); RDW Coefficient Variation 14.4 % (11.7-14.2); Red Blood Cell Count 3.23 M/mm3 (3.80-5.20); White Blood Cell Count 8.15 K/mm3 (4.00-11.30)
[2022-03-17 04:17] LABS: Albumin, Blood 2.4 g/dL (3.4-5.0); Anion Gap 6 mmol/L (6-16); Blood Urea Nitrogen 23 mg/dL (8-24); Bun/Creatinine Ratio 24.7 (12.0-20.0); CO2, Blood 30 mmol/L (21-32); Calcium, Blood 8.6 mg/dL (8.5-10.1); Chloride, Blood 103 mmol/L (98-108); Creatinine, Blood 0.93 mg/dL (0.40-1.00); Glomerular Filtration Rate 65 (60-); Glucose, Blood 96 mg/dL (70-99); Magnesium, Blood 1.9 mg/dL (1.6-2.4); Phosphorus, Blood 3.1 mg/dL (2.5-4.9); Potassium, Blood 3.9 mmol/L (3.5-5.5); Sodium, Blood 139 mmol/L (136-145)
--- NOTE | 2022-03-17 05:21 | NUR ---
SHIFT SUMMARY NO ACUTE CHANGES THIS SHIFT. PT PLEASANT, ALERT, FOLLOWS DIRECTIONS. IMPULSIVE, TRIED TO GET OUT OF BED AT START OF SHIFT, MATT IN PLACE FOR SAFETY/FALL RISK. SP02>90% ON 3L NC, PT DESATTED A FEW TIMES WHILE MOUTH BREATHING WHILE SLEEPING. REMINDED TO BREATHE THROUGH NOSE, SATS INCREASED TO NORMAL RANGE. VSS. [place] CATHETER DRAINING CLEAR YELLOW URINE TO GRAVITY. NO BM THIS SHIFT. PT SLEPT SECOND HALF OF SHIFT. CALL LIGHT IN REACH.
--- NOTE | 2022-03-17 17:36 | NUR ---
SHIFT SUMMARY PT A&O X4 W/ SOME FORGETFULLNESS. VSS. SPO2 > 92% ON 3L NC, TITRATED TO 2L NC THIS SHIFT W/ PT TOLERATING WELL. MONITOR SHOWING NSR, HR 60s-70s. PT MEDICATED PER EMAR FOR "BACK & TAILBONE" PAIN WELL HEADACHE TODAY. PT REPORTING IMPROVEMENT AFTER MEDICATION. [place] CATH PATENT & DRAINING CLEAR YELLOW URINE. MATT VEST REMAINS IN PLACE. BED ALARM ON, CALL LIGHT IN REACH.
[2022-03-18 03:40] LABS: BASOPHILS ABSOLUTE AUTO 0.03 K/mm3 (0.00-0.23); BASOPHILS PERCENT AUTO 0 % (0-2); EOSINOPHILS ABSOLUTE AUTO 0.12 K/mm3 (0.00-0.68); EOSINOPHILS PERCENT AUTO 1 % (0-6); Hematocrit 29.3 % (33.0-51.0); Hemoglobin 9.5 g/dL (11.5-16.0); IMMATURE GRAN ABSOLUTE AUTO 0.51 K/mm3 (0.00-0.10); IMMATURE GRAN PERCENT AUTO 5 % (0-1); LYMPHOCYTES ABSOLUTE AUTO 2.45 K/mm3 (0.84-5.20); LYMPHOCYTES PERCENT AUTO 23 % (21-46); MONOCYTES ABSOLUTE AUTO 0.88 K/mm3 (0.16-1.47); MONOCYTES PERCENT AUTO 8 % (4-13); Mean Corpuscular HGB 30.8 pg (26.0-34.0); Mean Corpuscular HGB Conc 32.4 g/dL (31.5-36.5); Mean Corpuscular Volume 95 fL (80-100); Mean Platelet Volume 10.2 fL (9.1-12.4); NEUTROPHILS ABSOLUTE AUTO 6.63 K/mm3 (1.96-9.15); NEUTROPHILS PERCENT AUTO 62 % (41-73); Platelet Count 520 K/mm3 (150-400); RDW Coefficient Variation 14.6 % (11.7-14.2); RDW Standard Deviation 50.8 fL (35.1-46.3); Red Blood Cell Count 3.08 M/mm3 (3.80-5.20); White Blood Cell Count 10.62 K/mm3 (4.00-11.30)
[2022-03-18 03:57] LABS: Albumin, Blood 2.3 g/dL (3.4-5.0); Anion Gap 5 mmol/L (6-16); Blood Urea Nitrogen 26 mg/dL (8-24); Bun/Creatinine Ratio 30.6 (12.0-20.0); CO2, Blood 30 mmol/L (21-32); Calcium, Blood 7.9 mg/dL (8.5-10.1); Chloride, Blood 102 mmol/L (98-108); Creatinine, Blood 0.85 mg/dL (0.40-1.00); Glomerular Filtration Rate 73 (60-); Glucose, Blood 77 mg/dL (70-99); Magnesium, Blood 1.5 mg/dL (1.6-2.4); Phosphorus, Blood 2.7 mg/dL (2.5-4.9); Potassium, Blood 3.6 mmol/L (3.5-5.5); Sodium, Blood 137 mmol/L (136-145)
--- NOTE | 2022-03-18 05:52 | NUR ---
SHIFT SUMMARY NO ACUTE CHANGES THIS SHIFT. VSS. PT ALERT, PLEASANT. SP02>92% MOSTLY ON 2L HUMIDIFIED NC. OCCASIONAL COUGH, PT STATES SHE FEELS IT STARTING TO BE PRODUCTIVE. PT USING INCENTIVE SPIROMETER AND PICKLE IN BED. PT C/O OF PAIN WHICH WAS RELIEVED W/ NIGHTTIME MEDS. [place] CATHETER DRAINING CLEAR YELLOW URINE TO GRAVITY. NO BM THIS SHIFT. PT SLEPT SECOND HALF OF SHIFT. CALL [facility] IN REACH.
--- NOTE | 2022-03-18 18:49 | NUR ---
SHIFT SUMMARY PT A&O X4. PLEASANT & COOPERATIVE. MATT VEST IN PLACE FOR HIGH FALL RISK. VSS. SPO2 > 92% ON 1-2L NC THIS SHIFT. MONITOR SHOWING NSR, HR 60s-80s. PT WORKING WELL W/ PT/OT TODAY. [place] CATH PATENT & DRAINING. PT MEDICATED FOR "LOWER BACK" PAIN W/ PRN OXYCODONE PER EMAR X2 TODAY IN ADDITION TO SCHEDULED PAIN PATCHES PER EMAR.
[2022-03-19 04:28] LABS: BASOPHILS ABSOLUTE AUTO 0.06 K/mm3 (0.00-0.23); BASOPHILS PERCENT AUTO 1 % (0-2); EOSINOPHILS ABSOLUTE AUTO 0.25 K/mm3 (0.00-0.68); EOSINOPHILS PERCENT AUTO 2 % (0-6); Hematocrit 27.1 % (33.0-51.0); Hemoglobin 8.8 g/dL (11.5-16.0); IMMATURE GRAN ABSOLUTE AUTO 0.55 K/mm3 (0.00-0.10); IMMATURE GRAN PERCENT AUTO 5 % (0-1); LYMPHOCYTES ABSOLUTE AUTO 2.83 K/mm3 (0.84-5.20); LYMPHOCYTES PERCENT AUTO 23 % (21-46); MONOCYTES ABSOLUTE AUTO 0.94 K/mm3 (0.16-1.47); MONOCYTES PERCENT AUTO 8 % (4-13); Mean Corpuscular HGB 30.6 pg (26.0-34.0); Mean Corpuscular HGB Conc 32.5 g/dL (31.5-36.5); Mean Corpuscular Volume 94 fL (80-100); Mean Platelet Volume 10.1 fL (9.1-12.4); NEUTROPHILS PERCENT AUTO 62 % (41-73); Platelet Count 544 K/mm3 (150-400); RDW Coefficient Variation 14.6 % (11.7-14.2); RDW Standard Deviation 49.7 fL (35.1-46.3); Red Blood Cell Count 2.88 M/mm3 (3.80-5.20); White Blood Cell Count 12.23 K/mm3 (4.00-11.30)
[2022-03-19 04:46] LABS: Albumin, Blood 2.3 g/dL (3.4-5.0); Anion Gap 7 mmol/L (6-16); Blood Urea Nitrogen 23 mg/dL (8-24); Bun/Creatinine Ratio 23.2 (12.0-20.0); CO2, Blood 29 mmol/L (21-32); Calcium, Blood 7.9 mg/dL (8.5-10.1); Chloride, Blood 101 mmol/L (98-108); Creatinine, Blood 0.99 mg/dL (0.40-1.00); Glomerular Filtration Rate 61 (60-); Glucose, Blood 91 mg/dL (70-99); Magnesium, Blood 1.5 mg/dL (1.6-2.4); Phosphorus, Blood 3.1 mg/dL (2.5-4.9); Potassium, Blood 3.7 mmol/L (3.5-5.5); Sodium, Blood 137 mmol/L (136-145)
--- NOTE | 2022-03-19 05:40 | NUR ---
SHIFT SUMMARY NO ACUTE CHANGES THIS SHIFT. PT ALERT, FOLLOWS DIRECTIONS. PT DID HAVE MIDDLE OF NIGHT CONFUSION, TRIED TO GET OUT OF BED, ALARM WENT OFF, PT SITTING ON SIDE OF BED W/ MATT LOOSENED. REDIRECTED BACK TO BED. SP02 MOSTLY >90% ON 1L HUMIDIFIED NC. VSS. [place] CATHETER DRAINING CLEAR YELLOW URINE TO GRAVITY. NO BM THIS SHIFT. REPOSITIONED Q2H. C/O OF LOWER BACK PAIN, MEDICATED PER EMAR X1. SLEPT SECOND HALF OF SHIFT. CALL LIGHT IN REACH.
--- NOTE | 2022-03-19 18:44 | NUR ---
SHIFT SUMMARY PT A&O X4. VSS. SPO2 > 92% ON RA W/ 1-2L NC PRN THIS SHIFT. MONITOR SHOWING NSR, HR 60s-80s. MATT VEST REMAINS IN PLACE FOR HIGH FALL RISK. PT MEDICATED FOR LOWER BACK & TAIL BONE PAIN PER EMAR. THIS EVENING, PT UP FROM CHAIR TO BED, THEN W/ L SIDED "RIB" PAIN. PT CLUTCHING AT LUQ. PAIN MEDICATION & HEATING PAD PROVIDED TO PT W/ NO RELIEF IN L "RIB" PAIN. PT REPORTS "I'M DOING MY DEEP BREATHING, HOPING IT WILL GO AWAY. I WILL CALL YOU IF I NEED SOMETHING MORE."
[2022-03-20 04:06] LABS: BASOPHILS ABSOLUTE AUTO 0.04 K/mm3 (0.00-0.23); BASOPHILS PERCENT AUTO 0 % (0-2); EOSINOPHILS PERCENT AUTO 3 % (0-6); Hematocrit 29.4 % (33.0-51.0); Hemoglobin 9.3 g/dL (11.5-16.0); IMMATURE GRAN ABSOLUTE AUTO 0.26 K/mm3 (0.00-0.10); IMMATURE GRAN PERCENT AUTO 2 % (0-1); LYMPHOCYTES ABSOLUTE AUTO 2.44 K/mm3 (0.84-5.20); LYMPHOCYTES PERCENT AUTO 20 % (21-46); MONOCYTES ABSOLUTE AUTO 0.97 K/mm3 (0.16-1.47); MONOCYTES PERCENT AUTO 8 % (4-13); Mean Corpuscular HGB Conc 31.6 g/dL (31.5-36.5); Mean Corpuscular Volume 95 fL (80-100); Mean Platelet Volume 10.1 fL (9.1-12.4); NEUTROPHILS ABSOLUTE AUTO 8.04 K/mm3 (1.96-9.15); NEUTROPHILS PERCENT AUTO 67 % (41-73); Platelet Count 606 K/mm3 (150-400); RDW Coefficient Variation 14.6 % (11.7-14.2); RDW Standard Deviation 51.2 fL (35.1-46.3); White Blood Cell Count 12.05 K/mm3 (4.00-11.30)
[2022-03-20 04:23] LABS: Albumin, Blood 2.3 g/dL (3.4-5.0); Anion Gap 8 mmol/L (6-16); Blood Urea Nitrogen 19 mg/dL (8-24); Bun/Creatinine Ratio 19.9 (12.0-20.0); CO2, Blood 29 mmol/L (21-32); Calcium, Blood 8.3 mg/dL (8.5-10.1); Chloride, Blood 101 mmol/L (98-108); Creatinine, Blood 0.95 mg/dL (0.40-1.00); Glomerular Filtration Rate 64 (60-); Glucose, Blood 89 mg/dL (70-99); Magnesium, Blood 1.7 mg/dL (1.6-2.4); Phosphorus, Blood 3.4 mg/dL (2.5-4.9); Potassium, Blood 3.9 mmol/L (3.5-5.5); Sodium, Blood 138 mmol/L (136-145)
--- NOTE | 2022-03-20 05:54 | NUR ---
SHIFT SUMMARY NO ACUTE CHANGES THIS SHIFT. PT ALERT, FOLLOWED DIRECTIONS. SP02 MOSTLY >90% ON 1L HUMDIFIED NC. WEAK PRODUCTIVE COUGH. C/O OF LEFT RIB PAIN THAT MADE IT HURT TO BREATHE DEEPLY, SHALLOW BREATHING. VSS. [place] CATHETER DRAINING CLEAR YELLOW URINE TO GRAVITY. NO BM THIS SHFIT. PT IV INFILTRATED UPON ASSESSMENT W/ FAILED ATTEMPTS FOR NEW IV. MD Jenise CROSS W/ ORDERS FOR NO IV ACCESS UNLESS NEEDED. PT SLEPT WELL SINCE ABOUT 2330. SPOKE W/ DAUGHTER, OSKAR, THIS EVENING AND GAVE UPDATE. CALL LIGHT IN REACH.
[2022-03-20 18:47] LABS: Base Excess Venous 5.7 mmol/L; Bicarbonate Venous 29.1 mmol/L (24.0-30.0); PCO2 Venous 37.8 mmHg (38-42); pH Blood Venous 7.49 (7.34-7.37)
--- NOTE | 2022-03-20 19:06 | NUR ---
SHIFT SUMMARY PT A/O AND COOPERATIVE OF CARE. VSS FOR MAJORITY OF SHIFT. TOWARDS END OF SHIFT, ROUGHLY 1600, PT BECAME RESTLESS IN HER BED, ATIVAN GIVEN ALONG WITH PAIN MEDS PER EMAR. AROUND 1700, PT WAS RUNNING A TEMP OF 101.6F, TYLENOL GIVEN PER EMAR AND ICE PACKS UNDER PT ARMS. PT DAUGHTER AT BEDSIDE AT THIS TIME. CHARGE NURSE NOTIFIED OF CHANGES WITH PT. PT UNABLE TO EXPRESS DISCOMFORT EVEN THOUGH PT WAS VISIBLY IN DISCOMFORT. NOTIFIED OF CHANGES WITH PT. PT TEMP AT 1800 DON TO 99.3F. CHEST XRAY ORDERED ALONG WITH SOME LABS PER DR ORDERS. PT REPORTED SOME SOB DURING PERIOD OF RESTLESSNESS, NO CHEST PAIN/PRESSURE. [place] IN PLACE, BLADDER TRAINING.
--- NOTE | 2022-03-20 20:28 | NUR ---
UPDATE D-DIMER ELEVATED, EXTRUSION DIE CORRECTOR PLACED CALL TO HOSPITALIST. ORDERS RECIEVED FOR CT PE STUDY AND BNP TO BE DRAWN.
[2022-03-20 21:50] LABS: Source, Urine Foley catheter
[2022-03-20 21:54] LABS: Bilirubin, Urine Neg (Neg); Blood, Urine 2+ (Neg); Glucose Qualitative, Urine Neg (Neg); Ketones, Urine Neg (Neg); Leukocyte Esterase, Urine 3+ (Neg); Nitrite, Urine Neg (Neg); Protein, Urine 1+ (Neg); Urobilinogen, Urine NORM (Normal)
[2022-03-20 22:11] LABS: Appearance, Urine Hazy (Clear); Color, Urine Yellow (P-Yellow)
[2022-03-20 22:13] LABS: Bacteria Few /hpf; Red Blood Cells, Urine 0-2 /hpf (0-2); Squamous Epithelial Cells Rare /hpf (Few); White Blood Cells, Urine 25-50 /hpf (0-5); Yeast/Fungi Urine Many /hpf
--- NOTE | 2022-03-21 06:32 | NUR ---
SHIFT SUMMARY NO ACUTE CHANGES OVERNIGHT. PATIENT ALERT AND ORIENTED BUT CAN BE FORGETFUL AT TIMES. VSS, SOFT BPs. PATIENT ON 1-2L NC IN PLACE FOR COMFORT, O2 SAT MID TO HIGH 90s. PATIENT HAS SLEPT FOR MAJORITY OF SHIFT. BLADDER TRAINING T/O THE NIGHT. [place] IN PLACE DRAINING CLEAR YELLOW URINE TO GRAVITY. NO COMPLAINTS OF PAIN, CHEST PAIN OR SHORTNESS OF BREATH. PATIENT ABLE TO TURN SELF SIDE TO SIDE IN BED. CT PE STUDY COMPLETED DURING COLORECTAL SURGEON. BED ALARM ON FOR SAFETY.
--- NOTE | 2022-03-21 08:30 | NUR ---
PT IS DIFFICULT TO AROUSE. DOES NOT OPEN EYES WHEN ASKED TO, BUT WILL SOMETIMES RAISE EYEBROWS. PT RESPONDS TO PAIN WITH REPOSITIONING. PT'S R PUPIL IS 1 MM LARGER THAN L PUPIL. R PUPIL IRREGULAR SHAPE, R PUPIL ROUND. PT WILL FOLLOW COMMANDS TO MOVE EACH LIMB AND SQUEEZE HANDS WHEN ASKED, VERY WEAK REPONSE. DR. RUANO AT BEDSIDE, DISCUSSED FINDINGS WIT HIM. [facility] [place] [facility].
--- NOTE | 2022-03-21 11:42 | NUR ---
PATIENT APPEARED TO WAKE UP, IS NOT ALERT AND CONVERSANT WITH STAFF. VSS, PT ABLE TO FEED SELF, NO SIGNS OF ACUTE DISTRESS, WCTM.
--- NOTE | 2022-03-21 18:20 | NUR ---
SHIFT SUMMARY PT WAS DIFFICULT TO AROUSE AT START OF SHIFT, BECAME ALERT AND CONVERSATIONAL BY AFTERNOON AND REMAINED ALERT THROUGH SHIFT. PT ABLE TO ASSIST WITH REPOSITIONING. WHEN AWAKE PO INTAKE WAS WELL TOLERATED. PT HAD TEMPERATURE IN AFTERNOON, TYLENOL GIVEN PER EMAR. PT ENDORSED SIGNIFICANT PAIN IN LEFT HIP/LOWER BACK, ASSISTED WITH REPOSITIONING AND MEDICATED PER EMAR. PT HAD SOFT BROWN BOWEL MOVEMENT THIS SHIFT. PT ON ROOM AIR TO 1 L TO MAINTAIN O2 SATURATION >90%. [place] DISCONTINUED PER DR. RUANO.
--- NOTE | 2022-03-22 03:48 | NUR ---
UPDATE BLADDER SCAN PERFORMED, >900 IN PATIENT'S BLADDER. CALL PLACED TO RESIDENT DR. NICOLE, ORDER RECIEVED FOR [place] PLACEMENT.
[2022-03-22 04:29] LABS: BASOPHILS ABSOLUTE AUTO 0.09 K/mm3 (0.00-0.23); BASOPHILS PERCENT AUTO 1 % (0-2); EOSINOPHILS ABSOLUTE AUTO 0.42 K/mm3 (0.00-0.68); EOSINOPHILS PERCENT AUTO 4 % (0-6); Hematocrit 29.4 % (33.0-51.0); Hemoglobin 9.4 g/dL (11.5-16.0); IMMATURE GRAN ABSOLUTE AUTO 0.13 K/mm3 (0.00-0.10); IMMATURE GRAN PERCENT AUTO 1 % (0-1); LYMPHOCYTES ABSOLUTE AUTO 1.51 K/mm3 (0.84-5.20); LYMPHOCYTES PERCENT AUTO 14 % (21-46); MONOCYTES ABSOLUTE AUTO 1.17 K/mm3 (0.16-1.47); MONOCYTES PERCENT AUTO 11 % (4-13); Mean Corpuscular HGB 30.4 pg (26.0-34.0); Mean Corpuscular Volume 95 fL (80-100); Mean Platelet Volume 10.1 fL (9.1-12.4); NEUTROPHILS PERCENT AUTO 69 % (41-73); Platelet Count 596 K/mm3 (150-400); RDW Coefficient Variation 14.6 % (11.7-14.2); RDW Standard Deviation 51.1 fL (35.1-46.3); Red Blood Cell Count 3.09 M/mm3 (3.80-5.20); White Blood Cell Count 10.72 K/mm3 (4.00-11.30)
[2022-03-22 04:51] LABS: Albumin, Blood 2.3 g/dL (3.4-5.0); Albumin/Globulin Ratio 0.7 (0.8-1.8); Bilirubin, Total 0.2 mg/dL (0.1-1.0); Bun/Creatinine Ratio 22.5 (12.0-20.0); Calcium, Blood 8.6 mg/dL (8.5-10.1); Creatinine, Blood 0.8 mg/dL (0.40-1.00); Globulin, Blood 3.4 g/dL (2.2-4.0); Potassium, Blood 4.3 mmol/L (3.5-5.5); Total Protein, Blood 5.7 g/dL (6.4-8.2)
--- NOTE | 2022-03-22 06:21 | NUR ---
SHIFT SUMMARY PATIENT ALERT AND ORIENTED, FORGETFUL AT TIMES. VSS. PATIENT ON 2L NC WITH O2 SAT >90%. PATIENT SLEPT FOR MAJORITY OF NIGHT WITH NO COMPLAINTS OF PAIN, CHEST PAIN OR SOB. BLADDER SCAN DONE OVERNIGHT WITH >900 IN BLADDER, ORDER RECIEVED FOR [place]O BUT PATIENT OPTED TO SIT ON BSC, RATHER THAN [place] INSERTION, AND WAS ABLE TO VOID 400mls. NO OTHER SIGNIFICANT CHANGES THIS SHIFT, WILL REPORT TO DAY SHIFT RN.
--- NOTE | 2022-03-22 10:43 | NUR ---
ASSUMPTION OF CARE RECEIVED REPORT FROM ONI CHAKRABORTY AT 0710 ASSUMED CARE OF PATIENT. PATIENT A/O, UP IN BED. MEAL TRAY WAS PROVIDED AND TOLERATED WELL. STANDBY ASSIST TO COMMODE. NOTIFIED DR. ALDEN CHEEKING CONCERN FOR URINE RETENTION. RECEIVED ORDERS FOR DAILY BLADDER SCAN, AND STRAIGHT CATH NEEDED. VITALS CURRENTLY STABLE. REVIEWING ORDERS AND WILL CONTINUE TO TREAT PRESCRIBED.
--- NOTE | 2022-03-22 12:35 | NUR ---
STRAIGHT CATH PATIENT REMAINS WITH NO URGENCY TO VOID. ATTEMPTED COMMODE WITH 30CC OF URINE PRODUCED. BLADDER SCAN SHOWED GREATER THAN 700ML. STRAIGHT CATH PERFORMED AND RECEIVED 500ML.
--- NOTE | 2022-03-22 17:52 | NUR ---
SHIFT SUMMARY PATIENT ALERT AND ORIENTED. 2L [address] NC IN PLACE WITH SP02 ABOVE 90%. VITALS STABLE. MEDICATED FOR PAIN CHARTED WITH HEAT PAD APPLIED. URINE RETENTION NOTED, DR. RUANO AWARE AND PATIENT BLADDER SCANNED TWICE WITH GREATER THAN 700ML IN BLADDER EACH TIME. PATIENT ATTEMPTS TO VOID ON COMMODE, DOES NOT FULLY EMPTY BLADDER. STRAIGHT CATH TWICE WITH RESULTS CHARTED. MEDICATION CHANGES PER ALDEN. DAUGHTER TO BEDSIDE THIS EVENING AND UPDATED ON PATIENT'S DAY AND CHANGES. CURRENTLY STABLE WITH DINNER TRAY PROVIDED, CALL LIGHT IN REACH.
--- NOTE | 2022-03-23 03:52 | NUR ---
UPDATE - [place] ORDER FOR BLADDER SCAN, AND STRAIGHT CATH >300. STRAIGHT CATH COMPLETED x2. CALL PLACED TO DR. COUGHLIN. ORDER RECIEVED FOR [place] INSERTION.
--- NOTE | 2022-03-23 05:30 | NUR ---
SHIFT SUMMARY PATIENT ALERT AND ORIENTED, ABLE TO MAKE NEEDS KNOWN TO STAFF. VSS, PATIENT REMAINS ON 2L NC OVERNIGHT WITH O2 SAT >90%. MEDICATED PER EMAR FOR PAIN. [place] INSERTED THIS SHIFT D/T RETENTION AND MULTIPLE STRAIGHT CATHs. PATIENT ABLE TO TURN SELF IN BED. NO OTHER SIGNIFICANT CHANGES THIS SHIFT. WILL REPORT TO DAY SHIFT RN.
--- NOTE | 2022-03-23 12:00 | NUR ---
UPDATE PT REMAINS ALERT AND ORIENTED. VS STABLE. STATUS CHANGED TO MEDICAL WITHOUT TELEMETRY. PT COMPLAINS OF PAIN TO RIGHT HIP AND PELVIS AREA THAT IS RELEIVED WITH MEDICATION ADMINISTRATION. PT ABLE TO REPOSITION IN BED. [place] PATENT AND DRAINING CLEAR YELLOW URINE. PLAN FOR PT TO DC TO SNF WHEN BED AVAILABLE. WILL CONTINUE TO MONITOR
[2022-03-23] MEDS ORDERED: AMLO5 PO (16:42)
[2022-03-23] MEDS ORDERED: FENTANYL1 EA10 TOP (16:43)
[2022-03-23] MEDS ORDERED: LIDO700A20 TOP (16:46)
[2022-03-23] MEDS ORDERED: GUAI600T33 PO (16:46)
[2022-03-23] MEDS ORDERED: FURO20 PO (16:46)
[2022-03-23] MEDS ORDERED: MIRT30 PO (16:47)
[2022-03-23] MEDS ORDERED: METO25 PO (16:47)
[2022-03-23] MEDS ORDERED: Nicoderm Cq1 EAC1 TOP (16:47)
[2022-03-23] MEDS ORDERED: ROXICODONE5 MG PO (16:48)
[2022-03-23] MEDS ORDERED: MIRALAX1713 PO (16:48)
[2022-03-23] MEDS ORDERED: PANT40 PO (16:48)
[2022-03-23] MEDS ORDERED: KLOR-CON 1010 ME1 PO (16:49)
[2022-03-23] MEDS ORDERED: TRAZ50 PO (16:49)
[2022-03-23 18:10] LABS: SARS-Cov-2 (COVID-19) PCR, MMC POSITIVE (NEGATIVE)
--- NOTE | 2022-03-23 18:14 | NUR ---
UPDATE PT TAKEN BY TRANSPORT TO [facility]. FAMILY UPDATED.
== END 2022-03-23 18:15 | DRG 377 ==
LOC: ER 14:54 → ICUW 17:26 → PCU 17:26 → MEDS 17:26 → ICUW 18:17 → ICUE 03-02 11:08 → PCU 03-03 11:54 → MEDS 03-07 13:23 → PCU 03-12 14:33
PROVIDERS: Emergency Medicine; Family Medicine; Internal Medicine; Internal Medicine Critical Care Medicine; Physician Assistant; Student in an Organized Health Care Education/Training Program; ADMIT Hospitalist
PROC: 30233N1 Transfusion of Nonautologous Red Blood Cells into Peripheral Vein, Percutaneous Approach (ICD-10-PCS; 2022-02-24)
PROC: 0W3P8ZZ Control Bleeding in Gastrointestinal Tract, Via Natural or Artificial Opening Endoscopic (ICD-10-PCS; principal; 2022-02-24 18:00)
PROC: 5A09357 Assistance with Respiratory Ventilation, Less than 24 Consecutive Hours, Continuous Positive Airway Pressure (ICD-10-PCS; 2022-02-24 18:00)
PROC: 5A0935A Assistance with Respiratory Ventilation, Less than 24 Consecutive Hours, High Flow/Velocity Cannula (ICD-10-PCS; 2022-03-12)
PROC: 8E0ZXY6 Isolation (ICD-10-PCS; 2022-03-12)
PROC: 3E0333Z Introduction of Anti-inflammatory into Peripheral Vein, Percutaneous Approach (ICD-10-PCS; 2022-03-12)
PROC: XW0DXM6 Introduction of Baricitinib into Mouth and Pharynx, External Approach, New Technology Group 6 (ICD-10-PCS; 2022-03-12)
PROC: XW033E5 Introduction of Remdesivir Anti-infective into Peripheral Vein, Percutaneous Approach, New Technology Group 5 (ICD-10-PCS; 2022-03-12)
DX: K25.4 Chronic or unspecified gastric ulcer with hemorrhage (principal); E43 Unspecified severe protein-calorie malnutrition; G93.41 Metabolic encephalopathy; J96.01 Acute respiratory failure with hypoxia; U07.1 COVID-19; J18.9 Pneumonia, unspecified organism; S32.592A Other specified fracture of left pubis, initial encounter for closed fracture; J90 Pleural effusion, not elsewhere classified; N39.0 Urinary tract infection, site not specified; D62 Acute posthemorrhagic anemia; Z68.1 Body mass index [BMI] 19.9 or less, adult; R64 Cachexia; J44.1 Chronic obstructive pulmonary disease with (acute) exacerbation; I25.10 Atherosclerotic heart disease of native coronary artery without angina pectoris; I72.8 Aneurysm of other specified arteries; G47.00 Insomnia, unspecified; I70.201 Unspecified atherosclerosis of native arteries of extremities, right leg; I10 Essential (primary) hypertension; F41.9 Anxiety disorder, unspecified; F32.A Depression, unspecified; N32.0 Bladder-neck obstruction; R33.9 Retention of urine, unspecified; E83.51 Hypocalcemia; E87.6 Hypokalemia; E83.42 Hypomagnesemia; I73.9 Peripheral vascular disease, unspecified; X58.XXXA Exposure to other specified factors, initial encounter; E78.00 Pure hypercholesterolemia, unspecified; F17.290 Nicotine dependence, other tobacco product, uncomplicated; Z79.899 Other long term (current) drug therapy; Z79.02 Long term (current) use of antithrombotics/antiplatelets; Z98.51 Tubal ligation status; Z20.822 Contact with and (suspected) exposure to COVID-19
CPT/HCPCS: 0241U; 32555; 36415; 36430; 51701; 51702; 71045; 71260; 72192; 73502; 74177; 76705; 80048; 80053; 80069; 81001; 82042; 82140; 82330; 82803; 82945; 83605; 83615; 83690; 83735; 83880; 83986; 84100; 84132; 84145; 84157; 84478; 85014; 85018; 85025; 85379; 85610; 85651; 86140; 86850; 86900; 86901; 86923; 87040; 87070; 87086; 87205; 89051; 92526; 92610; 93005; 93010; 94640; 94660; 94664; 94760; 94762; 96361; 96374; 96375; 96376; 97110; 97116; 97162; 97164; 97166; 97168; 97530; 97535; 99285-25; A9270; C1751; C9113; C9399; J0171; J0248; J0360; J0456; J0610; J0696; J1100; J1170; J1430; J1940; J2060; J2370; J2405; J2704; J2765; J3010; J3411; J3475; J3480; J7030; J7040; J7050; J7060; J7131; J7512; P9016; Q9967; U0004

== ENCOUNTER → 2022-04-03 | Outpatient (CLI) | payer MEDICARE ==
[~2022-04-03] MED LIST changes: +AMLO5 PO; +CEFD300 PO; +FENTANYL1 EA10 TOP; +FURO20 PO; +GUAI600T33 PO; +KLOR-CON 1010 ME1 PO; +LIDO700A20 TOP; +METO25 PO; +MIRALAX1713 PO; +MIRT30 PO; +Nicoderm Cq1 EAC1 TOP; +PANT40 PO; +ROXICODONE5 MG PO; +TRAZ50 PO
[2022-04-03 17:51] LABS: BASOPHILS ABSOLUTE AUTO 0.06 K/mm3 (0.00-0.23); BASOPHILS PERCENT AUTO 1 % (0-2); EOSINOPHILS ABSOLUTE AUTO 0.35 K/mm3 (0.00-0.68); EOSINOPHILS PERCENT AUTO 4 % (0-6); Hematocrit 25.1 % (33.0-51.0); Hemoglobin 8.2 g/dL (11.5-16.0); IMMATURE GRAN ABSOLUTE AUTO 0.06 K/mm3 (0.00-0.10); IMMATURE GRAN PERCENT AUTO 1 % (0-1); LYMPHOCYTES ABSOLUTE AUTO 1.71 K/mm3 (0.84-5.20); LYMPHOCYTES PERCENT AUTO 18 % (21-46); MONOCYTES ABSOLUTE AUTO 0.75 K/mm3 (0.16-1.47); MONOCYTES PERCENT AUTO 8 % (4-13); Mean Corpuscular HGB 29.9 pg (26.0-34.0); Mean Corpuscular HGB Conc 32.7 g/dL (31.5-36.5); Mean Corpuscular Volume 92 fL (80-100); Mean Platelet Volume 10.2 fL (9.1-12.4); NEUTROPHILS ABSOLUTE AUTO 6.54 K/mm3 (1.96-9.15); NEUTROPHILS PERCENT AUTO 69 % (41-73); Platelet Count 453 K/mm3 (150-400); RDW Coefficient Variation 14.3 % (11.7-14.2); RDW Standard Deviation 48.1 fL (35.1-46.3); Red Blood Cell Count 2.74 M/mm3 (3.80-5.20); White Blood Cell Count 9.47 K/mm3 (4.00-11.30)
== END | disposition home or self-care (01) ==
LOC: LAB SHORT 16:25 → LAB 16:25
PROVIDERS: Radiology Diagnostic Radiology
DX: R31.0 Gross hematuria (principal)
CPT/HCPCS: 85025

== ENCOUNTER 2022-04-09 05:47 | Day surgery (SDC) | payer MEDICARE ==
[~2022-04-09] VITALS: Ht 160 cm; Wt 36.0 kg
[2022-04-09] MEDS ORDERED: Aspir 8181 MG PO (06:48)
[2022-04-09] MEDS ORDERED: Percocet 5-3251 EACH PO (06:51)
[2022-04-09 07:21] LABS: BASOPHILS ABSOLUTE AUTO 0.07 K/mm3 (0.00-0.23); BASOPHILS PERCENT AUTO 1 % (0-2); EOSINOPHILS ABSOLUTE AUTO 0.72 K/mm3 (0.00-0.68); EOSINOPHILS PERCENT AUTO 8 % (0-6); Hematocrit 29.4 % (33.0-51.0); Hemoglobin 9.3 g/dL (11.5-16.0); IMMATURE GRAN ABSOLUTE AUTO 0.12 K/mm3 (0.00-0.10); IMMATURE GRAN PERCENT AUTO 1 % (0-1); LYMPHOCYTES ABSOLUTE AUTO 2.39 K/mm3 (0.84-5.20); LYMPHOCYTES PERCENT AUTO 27 % (21-46); MONOCYTES ABSOLUTE AUTO 0.94 K/mm3 (0.16-1.47); MONOCYTES PERCENT AUTO 10 % (4-13); Mean Corpuscular HGB 29.8 pg (26.0-34.0); Mean Corpuscular HGB Conc 31.6 g/dL (31.5-36.5); Mean Corpuscular Volume 94 fL (80-100); Mean Platelet Volume 9.8 fL (9.1-12.4); NEUTROPHILS ABSOLUTE AUTO 4.78 K/mm3 (1.96-9.15); NEUTROPHILS PERCENT AUTO 53 % (41-73); Platelet Count 485 K/mm3 (150-400); RDW Coefficient Variation 14.8 % (11.7-14.2); RDW Standard Deviation 51.2 fL (35.1-46.3); Red Blood Cell Count 3.12 M/mm3 (3.80-5.20); White Blood Cell Count 9.02 K/mm3 (4.00-11.30)
--- NOTE | 2022-04-09 13:15 | NUR ---
PT FAMILY HERE, DISCHARGE REVIEWED WITH PT AND FAMILY. TR BAND REMOVED AND AREA CLEANSED. CLOTH DOT PLACED. ARM BOARD ON R WRIST AND PT PLACED IN SLING. SALINE LOCK REMOVED WITH CATHETER INTACT.. DR CRUZ IN TALKING WITH FAMILY AND PT. PT WILL BE DISCHARGED PER W/C WITH FAMILY.
== END 2022-04-09 14:01 | disposition home or self-care (01) ==
LOC: MHTC 05:47
PROVIDERS: Radiology Diagnostic Radiology
DX: I77.1 Stricture of artery (principal); G45.9 Transient cerebral ischemic attack, unspecified; R41.4 Neurologic neglect syndrome; G45.1 Carotid artery syndrome (hemispheric); I10 Essential (primary) hypertension; E78.5 Hyperlipidemia, unspecified; I25.10 Atherosclerotic heart disease of native coronary artery without angina pectoris; F17.210 Nicotine dependence, cigarettes, uncomplicated; Z87.891 Personal history of nicotine dependence; Z95.1 Presence of aortocoronary bypass graft; Z95.5 Presence of coronary angioplasty implant and graft; Z88.8 Allergy status to other drugs, medicaments and biological substances; J44.9 Chronic obstructive pulmonary disease, unspecified
CPT/HCPCS: 36222; 36415; 37236; 75710; 76937; 85025; 99152; 99153; C1725; C1769; C1876; C1887; C1894; J1644; J2250; J3010; J7030; J7040; Q9967

== ENCOUNTER → 2022-04-21 | Outpatient (CLI) | payer MEDICARE ==
[~2022-04-21] MED LIST changes: +Aspir 8181 MG PO
[2022-04-21 16:56] LABS: Source, Urine Voided
[2022-04-21 17:53] LABS: Appearance, Urine Hazy (Clear); Bilirubin, Urine Neg (Neg); Blood, Urine 3+ (Neg); Glucose Qualitative, Urine Neg (Neg); Ketones, Urine Neg (Neg); Leukocyte Esterase, Urine 3+ (Neg); Nitrite, Urine Pos (Neg); Protein, Urine 2+ (Neg); Specific Gravity, Urine 1.015 (1.003-1.022); Urobilinogen, Urine NORM (Normal)
[2022-04-21 19:20] LABS: Color, Urine Pale Yellow (P-Yellow)
[2022-04-21 19:22] LABS: White Blood Cells, Urine TNTC /hpf (0-5)
[2022-04-21 19:23] LABS: Amorphous Light (0-Heavy); Bacteria Mod /hpf; Mucus Light (0-Heavy); Renal Epithelial Few /hpf (0-Rare); Squamous Epithelial Cells Rare /hpf (Few)
== END | disposition home or self-care (01) ==
LOC: LAB SHORT 16:10 → LAB 16:10
PROVIDERS: Nurse Practitioner Family
DX: R30.9 Painful micturition, unspecified (principal)
CPT/HCPCS: 81001; 87077; 87086; 87186

== ENCOUNTER → 2022-05-13 | Outpatient (CLI) | payer MEDICARE ==
[2022-05-13 16:53] LABS: Source, Urine Voided
[2022-05-13 17:33] LABS: Appearance, Urine Turbid (Clear); Bilirubin, Urine Neg (Neg); Blood, Urine 4+ (Neg); Glucose Qualitative, Urine Neg (Neg); Ketones, Urine Neg (Neg); Leukocyte Esterase, Urine 3+ (Neg); Nitrite, Urine Pos (Neg); Protein, Urine 2+ (Neg); Specific Gravity, Urine 1.015 (1.003-1.022); Urobilinogen, Urine NORM (Normal)
[2022-05-13 17:39] LABS: Color, Urine Pale Yellow (P-Yellow)
[2022-05-13 17:46] LABS: White Blood Cells, Urine TNTC /hpf (0-5)
[2022-05-13 17:47] LABS: Bacteria Many /hpf; Red Blood Cells, Urine 25-50 /hpf (0-2); Squamous Epithelial Cells Few /hpf (Few); Yeast/Fungi Urine Few /hpf
== END | disposition home or self-care (01) ==
LOC: LAB SHORT 16:15 → LAB 16:15
PROVIDERS: Physician Assistant
DX: R30.9 Painful micturition, unspecified (principal)
CPT/HCPCS: 81001; 87086

== ENCOUNTER 2022-06-25 07:15 | Emergency (ER) | payer MEDICARE ==
[~2022-06-25] VITALS: Ht 160 cm; Wt 36.3 kg
[2022-06-25 09:29] LABS: BASOPHILS ABSOLUTE AUTO 0.05 K/mm3 (0.00-0.23); BASOPHILS PERCENT AUTO 0 % (0-2); EOSINOPHILS ABSOLUTE AUTO 0.05 K/mm3 (0.00-0.68); EOSINOPHILS PERCENT AUTO 0 % (0-6); Hematocrit 36.7 % (33.0-51.0); IMMATURE GRAN ABSOLUTE AUTO 0.25 K/mm3 (0.00-0.10); IMMATURE GRAN PERCENT AUTO 2 % (0-1); LYMPHOCYTES ABSOLUTE AUTO 1.09 K/mm3 (0.84-5.20); LYMPHOCYTES PERCENT AUTO 8 % (21-46); MONOCYTES ABSOLUTE AUTO 1.12 K/mm3 (0.16-1.47); MONOCYTES PERCENT AUTO 8 % (4-13); Mean Corpuscular HGB 27.8 pg (26.0-34.0); Mean Corpuscular HGB Conc 32.7 g/dL (31.5-36.5); Mean Corpuscular Volume 85 fL (80-100); Mean Platelet Volume 10.7 fL (9.1-12.4); NEUTROPHILS ABSOLUTE AUTO 11.76 K/mm3 (1.96-9.15); NEUTROPHILS PERCENT AUTO 82 % (41-73); Platelet Count 305 K/mm3 (150-400); RDW Coefficient Variation 15.1 % (11.7-14.2); RDW Standard Deviation 47.4 fL (35.1-46.3); Red Blood Cell Count 4.31 M/mm3 (3.80-5.20); White Blood Cell Count 14.32 K/mm3 (4.00-11.30)
[2022-06-25 09:52] LABS: Albumin, Blood 3.9 g/dL (3.4-5.0); Bilirubin, Total 0.3 mg/dL (0.1-1.0); Calcium, Blood 9.6 mg/dL (8.5-10.1); Creatinine, Blood 0.89 mg/dL (0.40-1.00); Potassium, Blood 3.2 mmol/L (3.5-5.5); Total Protein, Blood 7.9 g/dL (6.4-8.2)
[2022-06-25 10:49] LABS: Influenza A, PCR NEGATIVE (NEGATIVE); Influenza B, PCR NEGATIVE (NEGATIVE); Resp Syncytial Virus, PCR NEGATIVE (NEGATIVE); SARS-Cov-2 (COVID-19) PCR, MMC NEGATIVE (NEGATIVE)
== END 2022-06-25 10:30 | disposition short-term general hospital (02) ==
LOC: ER 07:15
PROVIDERS: Student in an Organized Health Care Education/Training Program
DX: S12.030A Displaced posterior arch fracture of first cervical vertebra, initial encounter for closed fracture (principal); S12.110A Anterior displaced Type II dens fracture, initial encounter for closed fracture; I10 Essential (primary) hypertension; I25.10 Atherosclerotic heart disease of native coronary artery without angina pectoris; J44.9 Chronic obstructive pulmonary disease, unspecified; E78.00 Pure hypercholesterolemia, unspecified; F17.210 Nicotine dependence, cigarettes, uncomplicated; Z88.8 Allergy status to other drugs, medicaments and biological substances; Z79.82 Long term (current) use of aspirin; Z79.899 Other long term (current) drug therapy; W06.XXXA Fall from bed, initial encounter
CPT/HCPCS: 0241U; 70450; 71046; 72125; 73110; 80053; 83735; 83880; 84484; 85025; 93005; 93010; J1885; J2270; J2405; J3010; J7050

== ENCOUNTER 2022-10-09 16:57 | Inpatient (IN) | payer MEDICARE ==
[~2022-10-09] VITALS: Ht 157.5 cm; Wt 85.2 kg
[2022-10-09 17:52] LABS: BASOPHILS ABSOLUTE AUTO 0.02 K/mm3 (0.00-0.23); BASOPHILS PERCENT AUTO 0 % (0-2); EOSINOPHILS PERCENT AUTO 0 % (0-6); Hemoglobin 12.1 g/dL (11.5-16.0); IMMATURE GRAN ABSOLUTE AUTO 0.05 K/mm3 (0.00-0.10); IMMATURE GRAN PERCENT AUTO 0 % (0-1); LYMPHOCYTES ABSOLUTE AUTO 0.65 K/mm3 (0.84-5.20); LYMPHOCYTES PERCENT AUTO 6 % (21-46); MONOCYTES ABSOLUTE AUTO 2.02 K/mm3 (0.16-1.47); MONOCYTES PERCENT AUTO 17 % (4-13); Mean Corpuscular HGB 28.3 pg (26.0-34.0); Mean Corpuscular HGB Conc 32.7 g/dL (31.5-36.5); Mean Corpuscular Volume 86 fL (80-100); Mean Platelet Volume 10.7 fL (9.1-12.4); NEUTROPHILS PERCENT AUTO 77 % (41-73); Platelet Count 261 K/mm3 (150-400); RDW Coefficient Variation 17.3 % (11.7-14.2); RDW Standard Deviation 54.7 fL (35.1-46.3); Red Blood Cell Count 4.28 M/mm3 (3.80-5.20); White Blood Cell Count 11.84 K/mm3 (4.00-11.30)
[2022-10-09 18:00] LABS: Bicarbonate Venous 31.5 mmol/L (24.0-30.0); PCO2 Venous 66.7 mmHg (38-42); PO2 Venous 68.6 mmHg (38-42); pH Blood Venous 7.34 (7.34-7.37)
[2022-10-09 18:24] LABS: Albumin, Blood 3.4 g/dL (3.4-5.0); Albumin/Globulin Ratio 0.9 (0.8-1.8); Bilirubin, Total 0.5 mg/dL (0.1-1.0); Bun/Creatinine Ratio 17.5 (12.0-20.0); Calcium, Blood 9.5 mg/dL (8.5-10.1); Creatinine, Blood 1.37 mg/dL (0.40-1.00); Globulin, Blood 3.8 g/dL (2.2-4.0); Potassium, Blood 2.4 mmol/L (3.5-5.5); Total Protein, Blood 7.2 g/dL (6.4-8.2)
[2022-10-09 20:00] LABS: Influenza A, PCR NEGATIVE (NEGATIVE); Influenza B, PCR NEGATIVE (NEGATIVE); Resp Syncytial Virus, PCR NEGATIVE (NEGATIVE); SARS-Cov-2 (COVID-19) PCR, MMC NEGATIVE (NEGATIVE)
[2022-10-09 20:47] LABS: Source, Urine Foley catheter
[2022-10-09 20:54] LABS: Bilirubin, Urine Neg (Neg); Blood, Urine 3+ (Neg); Glucose Qualitative, Urine Neg (Neg); Ketones, Urine Neg (Neg); Leukocyte Esterase, Urine Neg (Neg); Nitrite, Urine Neg (Neg); Protein, Urine 4+ (Neg); Urobilinogen, Urine NORM (Normal)
[2022-10-09 21:02] LABS: Appearance, Urine Hazy (Clear); Color, Urine Yellow (P-Yellow)
[2022-10-09 21:04] LABS: Bacteria Many /hpf; Red Blood Cells, Urine 0-2 /hpf (0-2); Squamous Epithelial Cells Not Seen /hpf (Few)
--- NOTE | 2022-10-09 23:00 | NUR ---
ADMISSION REPORT RECIEVED FROM ER NURSE. PATIENT ARRIVES TO PCU ON BIPAP. DAUGHTER AND SON ACCOMPANYING. PATIENT VERY LETHARGIC AND IS HARD TO WAKE WITH VERBAL STIMULI. PATIENT'S DAUGHTER OSKAR STATED THE PATIENT WAS TALKING AND MORE ALERT WHILE IN THE ER. PATIENT HAS AUDIBLE CRACKLES WITH BREATHING AND BIPAP. ROVING WINDER CALLED DR. HERNANDEZ WITH UPDATE. STAT VBG AND DOSE OF LASIX ORDERED. HISTORY AND MEDICATIONS CONFIRMED WITH PATIENT'S DAUGHTER. RT TO ADJUST BIPAP ACCORDINGLY. VITALS STABLE, O2 SAT >90% ON BIPAP. SON AND DAUGHTER AT BEDSIDE UNTIL ADMISSION IS COMPLETE. PATIENT RESTING COMFORTABLY, CALL LIGHT IN REACH.
[2022-10-09 23:04] LABS: PCO2 Venous 72.7 mmHg (38-42); pH Blood Venous 7.31 (7.34-7.37)
[2022-10-09 23:54] LABS: Bun/Creatinine Ratio 16.7 (12.0-20.0); Calcium, Blood 9.2 mg/dL (8.5-10.1); Creatinine, Blood 1.5 mg/dL (0.40-1.00)
[2022-10-10 05:27] LABS: Hematocrit 37.3 % (33.0-51.0); Hemoglobin 12.4 g/dL (11.5-16.0); Mean Corpuscular HGB 28.4 pg (26.0-34.0); Mean Corpuscular HGB Conc 33.2 g/dL (31.5-36.5); Mean Corpuscular Volume 85 fL (80-100); Mean Platelet Volume 10.7 fL (9.1-12.4); Platelet Count 303 K/mm3 (150-400); RDW Coefficient Variation 17.2 % (11.7-14.2); RDW Standard Deviation 53.6 fL (35.1-46.3); Red Blood Cell Count 4.37 M/mm3 (3.80-5.20); White Blood Cell Count 17.13 K/mm3 (4.00-11.30)
[2022-10-10 05:46] LABS: BAND PERCENT MAN 14 % (0-8); BASOPHILS PERCENT MAN 0 % (0-2); EOSINOPHILS PERCENT MAN 0 % (0-6); METAMYELOCYTE ABSOLUTE MAN 0.17 K/mm3 (0.00-0.00); METAMYELOCYTE PERCENT MAN 1 % (0-0); MONOCYTES ABSOLUTE MAN 1.88 K/mm3 (0.16-1.47); MONOCYTES PERCENT MAN 11 % (4-13); NEUTROPHILS ABSOLUTE MAN 15.07 K/mm3 (1.96-9.15); SEG NEUTROPHILS PERCENT MAN 74 % (41-73); TOTAL CELLS COUNTED 100
[2022-10-10 06:05] LABS: Albumin, Blood 3.1 g/dL (3.4-5.0); Albumin/Globulin Ratio 0.7 (0.8-1.8); Bilirubin, Total 0.5 mg/dL (0.1-1.0); Bun/Creatinine Ratio 16.5 (12.0-20.0); Calcium, Blood 9.1 mg/dL (8.5-10.1); Creatinine, Blood 1.58 mg/dL (0.40-1.00); Globulin, Blood 4.4 g/dL (2.2-4.0); Potassium, Blood 4.3 mmol/L (3.5-5.5); Total Protein, Blood 7.5 g/dL (6.4-8.2)
--- NOTE | 2022-10-10 06:37 | NUR ---
SHIFT SUMMARY PATIENT ALERT, ORIENTED x3. HYPERTENSIVE, MEDICATED PER EMAR. PATIENT ON BIPAP UNTIL 0200 THEN SWITCHED TO AIRVO. PATIENT TOLERATING WELL. SPO2 >90%. [place] IN PLACE DRAINING YELLOW URINE TO GRAVITY. EGG CRATE ON BED PER DAUGHTER REQUEST, FOOT DROP BOOTS PLACED DURING THE NIGHT, TURNED Q2. NO OTHER CHANGES, WILL REPORT TO DAY SHIFT RN.
--- NOTE | 2022-10-10 10:31 | NUR ---
AM NOTE: PATIENT ALERT AND ORIENTED X4. DAUGHTER AT BEDSIDE. DENIES PAIN THIS AM. WEARING C-COLLAR FROM PRIOR NECK FRACTURE. OVERALL VERY WEAK. Q2 TURNING IN BED. UP TO CHAIR X1 THIS AM WITH 2 PERSON ASSIST AND WALKER. TELE SHOWING SINUS RHYTHM WITH HR 90'S. BLOOD PRESSURE STABLE. PPP. DENIES CHEST PAIN/PRESSURE. NO EDEMA NOTED. ON AIRVO AT 60L AND 60%. LUNGS SOUNDING COARSE AND DIMINISHED AIR FLOW. OCCASIONAL PRODUCTIVE COUGH. DIET ORDERS IN PLACE. EATING WNL. DENIES ABDOMINAL PAIN/NAUSEA. ATTENDS IN PLACE, C/D/I. [place] CATH DRAINING CLEAR/YELLOW URINE. CATH CARE COMPLETED THIS AM. HENRIQUEZ BOOTS IN PLACE TO PREVENT PRESSURE SORES WELL Q2 TURNING. MEPILEX OVER COCCYX. SKIN OVERALL PALE/FRAGILE WITH SCATTERED BRUISING. NICOTINE PATCH TO LEFT DELTOID. ABX INFUSED THIS AM. WILL CONTINUE TO MONITOR BED ALARM IN PLACE.
--- NOTE | 2022-10-10 17:49 | NUR ---
SHIFT SUMMARY: PATIENT REMAINS ALERT AND ORIENTED. AT TIMES CONFUSED UPON WAKING FROM NAP. C COLLAR REMAINS IN PLACE. SLEEPING MOST OF AFTERNOON. ECHO DONE AND CARDIOLOGY CONSULTED. THIS RN SPOKE WITH SUDHA HATFIELD AT MIDNIGHT FOR POSSIBLE STEVE IN AM. PATIENT AND FAMILY UPDATED. SIGNIFICANT OTHER BRADY AT BEDSIDE. REMAINS ON HEATED HIGH FLOW NASAL CANNULA AT 50L AND 45% FIO2. GOAL SATURATION 89-92%. CONTINUES TO HAVE MOIST SOUNDING COUGH. TELE SHOWING SINUS RHYTHM WITH HR 80-90'S. BP STABLE. DENIES CHEST PAIN/PRESSURE. NO BM THIS SHIFT. [place] CONTINUES TO DRAIN CLEAR/YELLOW URINE. DENIES OVERALL PAIN. Q2 TURNING AND NEEDED. CALL LIGHT IN REACH. EATING DINNER AT THIS TIME. WILL CONTINUE TO MONITOR.
[2022-10-11 04:01] LABS: Hematocrit 32.3 % (33.0-51.0); Hemoglobin 10.7 g/dL (11.5-16.0); Mean Corpuscular HGB 28.3 pg (26.0-34.0); Mean Corpuscular HGB Conc 33.1 g/dL (31.5-36.5); Mean Corpuscular Volume 85 fL (80-100); Mean Platelet Volume 10.5 fL (9.1-12.4); Platelet Count 279 K/mm3 (150-400); RDW Standard Deviation 53.2 fL (35.1-46.3); Red Blood Cell Count 3.78 M/mm3 (3.80-5.20); White Blood Cell Count 13.27 K/mm3 (4.00-11.30)
[2022-10-11 04:24] LABS: Albumin, Blood 2.9 g/dL (3.4-5.0); Albumin/Globulin Ratio 0.7 (0.8-1.8); Bilirubin, Total 0.3 mg/dL (0.1-1.0); Bun/Creatinine Ratio 16.5 (12.0-20.0); Calcium, Blood 8.6 mg/dL (8.5-10.1); Creatinine, Blood 2.12 mg/dL (0.40-1.00); Globulin, Blood 4.2 g/dL (2.2-4.0); Potassium, Blood 3.4 mmol/L (3.5-5.5); Total Protein, Blood 7.1 g/dL (6.4-8.2)
[2022-10-11 04:27] LABS: BAND PERCENT MAN 5 % (0-8); BASOPHILS PERCENT MAN 0 % (0-2); EOSINOPHILS PERCENT MAN 0 % (0-6); LYMPHOCYTES ABSOLUTE MAN 0.66 K/mm3 (0.84-5.20); LYMPHOCYTES PERCENT MAN 5 % (21-46); MONOCYTES ABSOLUTE MAN 0.79 K/mm3 (0.16-1.47); MONOCYTES PERCENT MAN 6 % (4-13); NEUTROPHILS ABSOLUTE MAN 11.81 K/mm3 (1.96-9.15); SEG NEUTROPHILS PERCENT MAN 84 % (41-73); TOTAL CELLS COUNTED 100
--- NOTE | 2022-10-11 06:21 | NUR ---
SHIFT SUMMARY PATIENT ALERT AND ORIENTED BUT FORGETFUL AT TIMES. ABLE TO MAKE NEEDS KNOWN TO STAFF, ABLE TO GET PLENTY OF REST THIS SHIFT. VSS, PATIENT WEARING AIRVO WHILE AWAKE, BIPAP WHILE SLEEPING, SPO2 >90%. [place] IN PLACE DRAINING YELLOW URINE TO GRAVITY. TURNED Q2. NPO SINCE 0000 FOR POSSIBLE PROCEDURE TODAY. NO OTHER CHANGES THIS SHIFT. WILL REPORT TO DAY SHIFT RN.
--- NOTE | 2022-10-11 12:27 | NUR ---
PATIENT ALERT AND ORIENTED X3-4. DENIES NUMBNESS/TINGLING. OVERALL VERY WEAK AND FRAGILE. PERRLA. Q2 TURNING. ON HIGH FLOW HEATED NASAL CANNULA AT 50L AND 55%. VERY COARSE SOUNDING COUGH WITH SPUTUM PRODUCTION. SUCTION AT BEDSIDE. FLUTTER AND IS ENCOURAGED AND EDUCATION PROVIDED. TELE SHOWING SINUS RHYTHM WITH HR 80'S. BP STABLE. DENIES CHEST PAIN/PRESSURE/PALPITATIONS. CARDIOLOGY CONSULT THIS AM, NO STEVE. EKG COMPLETED AND IN CHART. SWITCHED IV LASIX TO PO. DENIES ABDOMINAL PAIN/NAUSEA. EATING WNL. FLUID RESTRICTION IN PLACE OF 1500ML/DAY. DAUGHTER AT BEDSIDE THIS AM AND UPDATED. SPOUSE BRADY AT BEDSIDE AT THIS TIME. PATIENT EATING LUNCH. PLAN FOR BED BATH TODAY. LIMITED CODE STATUS. CALL LIGHT IN REACH. WILL CONTINUE TO MONITOR. DR. BENDER UPDATED ON AM SODIUM AND POTASSIUM LAB RESULTS. NO NEW ORDERS FOR THIS RN TO PLACE.
--- NOTE | 2022-10-11 14:06 | NUR ---
DR. BENDER BY TO SEE PATIENT. NEW ORDERS FOR THIS RN TO PLACE: NS AT 75 ML/HR, BMP LAB DRAWN NOW, KCL 40 MEQ PO ELIXER X1, AND TO DISCONTINUE THE PO LASIX. THIS RN TO UPDATE DR. BENDER ON BMP LAB RESULTS.
[2022-10-11 14:39] LABS: Bun/Creatinine Ratio 15.7 (12.0-20.0); Calcium, Blood 8.7 mg/dL (8.5-10.1); Creatinine, Blood 2.36 mg/dL (0.40-1.00); Potassium, Blood 3.5 mmol/L (3.5-5.5)
--- NOTE | 2022-10-11 14:53 | NUR ---
DR. BENDER UPDATED ON BMP RESULTS.
--- NOTE | 2022-10-11 16:23 | NUR ---
UPDATE FROM DR. BENDER. DISCONTINUE NS AT THIS TIME AND ORDERS FOR NEPHROLOGY CONSULT. NS STOPPED. MEDICATION ADMINISTRATION PROFESSIONAL PLACED NEPHRO CONSULT. STAT SODIUM AND URIC ACID LAB DRAW ORDERS. THIS RN TO CALL AND UPDATE DR. BALDERAS WITH RESULTS. VITAL SIGNS REMAIN STABLE. CALL PLACED TO DAUGHTER TO UPDATE, NO ANSWER. WILL ATTEMPT TO CALL AGAIN SHORTLY. SIG OTHER BRADY AT BEDSIDE AND UPDATED ON PLAN.
[2022-10-11 16:51] LABS: Uric Acid, Blood 7.6 mg/dL (2.6-6.0)
--- NOTE | 2022-10-11 17:23 | NUR ---
DR. BALDERAS TO UNIT AND UPDATED ON SODIUM AND URIC ACID LAB RESULTS. NEW ORDERS FOR THIS RN TO PLACE INCLUDED: 1,OOOML/DAY FLUID RESTRICTION, NS AT 50 ML/HR, SODIUM CHLORIDE 1G PO TID, LASIX 40 MG PO QOD - STARTING TOMORROW, AND KCL 10 MEQ PO QOD - STARTING TOMORROW. ORDERS IN PLACE. NS INFUSING AT 50 ML/HR. PATIENT HAS MAINTAINED FR. RENAL ULTRASOUND COMPLETE. SPOKE WITH DAUGHTER PATRICK ON PHONE AND PROVIDED UPDATE. VITAL SIGNS REMAIN STABLE. ON 50L AND 50% FIO2 SATING 90%. EATING SMALL AMOUNTS EVERY MEAL. [place] CATH DRAINING CLEAR/YELLOW URINE. BED BATH GIVEN TODAY.
[2022-10-12 03:52] LABS: BASOPHILS ABSOLUTE AUTO 0.01 K/mm3 (0.00-0.23); BASOPHILS PERCENT AUTO 0 % (0-2); EOSINOPHILS PERCENT AUTO 0 % (0-6); Hematocrit 29.9 % (33.0-51.0); Hemoglobin 10.1 g/dL (11.5-16.0); IMMATURE GRAN ABSOLUTE AUTO 0.08 K/mm3 (0.00-0.10); IMMATURE GRAN PERCENT AUTO 1 % (0-1); LYMPHOCYTES ABSOLUTE AUTO 0.39 K/mm3 (0.84-5.20); LYMPHOCYTES PERCENT AUTO 3 % (21-46); MONOCYTES ABSOLUTE AUTO 0.49 K/mm3 (0.16-1.47); MONOCYTES PERCENT AUTO 4 % (4-13); Mean Corpuscular HGB 28.6 pg (26.0-34.0); Mean Corpuscular HGB Conc 33.8 g/dL (31.5-36.5); Mean Corpuscular Volume 85 fL (80-100); Mean Platelet Volume 10.5 fL (9.1-12.4); NEUTROPHILS ABSOLUTE AUTO 12.16 K/mm3 (1.96-9.15); NEUTROPHILS PERCENT AUTO 93 % (41-73); Platelet Count 279 K/mm3 (150-400); RDW Coefficient Variation 16.5 % (11.7-14.2); RDW Standard Deviation 50.9 fL (35.1-46.3); Red Blood Cell Count 3.53 M/mm3 (3.80-5.20); White Blood Cell Count 13.13 K/mm3 (4.00-11.30)
[2022-10-12 04:12] LABS: Albumin, Blood 2.7 g/dL (3.4-5.0); Albumin/Globulin Ratio 0.7 (0.8-1.8); Bilirubin, Total 0.3 mg/dL (0.1-1.0); Bun/Creatinine Ratio 15.3 (12.0-20.0); Calcium, Blood 8.1 mg/dL (8.5-10.1); Creatinine, Blood 2.42 mg/dL (0.40-1.00); Globulin, Blood 3.7 g/dL (2.2-4.0); Magnesium, Blood 1.8 mg/dL (1.6-2.4); Phosphorus, Blood 3.3 mg/dL (2.5-4.9); Potassium, Blood 3.5 mmol/L (3.5-5.5); Total Protein, Blood 6.4 g/dL (6.4-8.2)
--- NOTE | 2022-10-12 07:15 | NUR ---
PT ALERT NO S/S OF ACUTE DISTRESS, SAFETY MEASURES IN PLACE. REPORT GIVEN ON COMING NURSE.
[2022-10-12 07:39] LABS: Magnesium, Blood 1.9 mg/dL (1.6-2.4)
--- NOTE | 2022-10-12 09:26 | NUR ---
UPDATE THIS RN WAS NOTIFIED BY THE PROVIDER THAT THEY FOUND THE PT SMOKING A CIGARETTE IN THEIR ROOM. THIS RN AND THE OFFAL ROLLER ENTERED THE PT'S ROOM AND EDUCATED THE PT ON THE HOSPITAL'S TOBACCO FREE POLICY AND ON THE SAFETY RISKS ASSOCIATED WITH SMOKING WHILE ON HIGH FLOW OXYGEN. THE PT STATED THAT THEY UNDERSTOOD THE POLICY AND THE RISKS AND STATED "I DON'T CARE." PT REFUSED TO TURN OVER SMOKING PARAPHENALIA. SECURITY WAS CALLED FOR ASSISTANCE AND UPON ENTERING THE ROOM PT RELINQUISHED ONE PACK OF CIGARETTES AND ONE CIGARETTE PHOTO TECH TO STAFF. THESE ITEMS ARE SECURED IN THE LOCKED DRAWER OUTSIDE OF PT'S ROOM.
--- NOTE | 2022-10-12 11:33 | NUR ---
PT WAS OBSERVED SMOKING IN HER ROOM, WHILE USING HI-GABI OXYGEN. CHARGE NURSE INTERVENED AND REMOVED PT'S CIGARETTES AND CERTIFIED TOWER CLIMBER. PT WAS VERY APOLOGETIC. PT STATED, "THE FIRST TIME I WAS SMOKING, I MEANT TO. BUT THIS TIME I DIDN'T MEAN TO, I THOUGHT I WAS AT HOME." PT CONTINUED REPEATING THAT SHE THOUGHT SHE WAS AT HOME AND DIDN'T REALIZE THAT SHE WAS IN THE HOSPITAL BED. PT WAS RE-EDUCATED ON SAFETY AND THAT [facility] IS A TOBACCO FREE CAMPUS. HAS PRESCRIBED A NICOTINE PATCH PRN, RN WILL APPLY.
--- NOTE | 2022-10-12 12:47 | NUR ---
PHONE CALL TO DR. BALDERAS- RN CALLED DR. BALDERAS WITH RESULTS OF TODAY'S SODIUM AT 11:30AM WAS 125. DR. BALDERAS WITH ORDERS FOR A STAT SODIUM RE-DRAW TODAY AT 1700 AND THEN RN TO CALL WITH RESULTS BY 1800. RN TO UPDATE ORDERS.
--- NOTE | 2022-10-12 17:26 | NUR ---
PHONE CALL TO DR. BALDERAS: RN UPDATED ON ROSALBA'S SODIUM LEVEL FROM THE [address] BALDERAS THANKED THE NURSE AND HAD NO NEW ORDERS AT THIS TIME.
--- NOTE | 2022-10-12 18:51 | NUR ---
SHIFT SUMMARY PT IS ON STRICT I'S AND O'S. SHE HAS CONSUMED 480 OUNCES ON DAY SHIFT. PT DIDN'T WANT TO EAT LUNCH TODAY, ALTHOUGH SHE TOLERATED 75% OF HER DINNER. PT'S SIGNIFIGANT OTHER BROUGHT IN A COKE FOR HER TO DRINK. RN PROVIDED EDUCATION ON THE 1000 ML FLUID RESTRICTION, AND THAT ALL FLUID INTAKE NEEDS TO BE ACCOUNTED FOR. PT WAS ALSO SMOKING EARLIER THIS SHIFT. RN AND CERTIFIED NURSE PROVIDED EDUCATION AGAIN THAT SMOKING WITH HI-GABI OXYGEN IS A FIRE HAZARD, AND FOR SAFETY PT CAN'T SMOKE ON CAMPUS. PT WAS APOLOGETIC. ROSALBA IS WEARING HI-GABI OXYGEN 50LPM/FIO2 50% TO MAINTAIN HER SATS. TELE IS MONITORING AT SINUS RHYTHM. IV FLUIDS INFUSING PER ORDER. PT HAD A HEADACHE EARLIER, WHICH WAS RELIEVED BY PO TYLENOL. SHE WAS ABLE TO SLEEP LATER IN THE SHIFT.
--- NOTE | 2022-10-12 21:57 | NUR ---
2100 MEDICATION REFUSAL PATIENT LETHARGIC BUT WAKES EASILY TO VERBAL STIMULI. PATIENT REFUSED NIGHT MEDICATIONS AND STATED "JUST LET ME SLEEP ALREADY". PATIENT CLOSES EYES AFTER STATEMENT. CALL LIGHT IN REACH, BED ALARM ON.
[2022-10-13 04:30] LABS: Hematocrit 33.4 % (33.0-51.0)
[2022-10-13 04:55] LABS: Albumin, Blood 2.7 g/dL (3.4-5.0); Anion Gap 10 mmol/L (6-16); Blood Urea Nitrogen 35 mg/dL (8-24); Bun/Creatinine Ratio 13.8 (12.0-20.0); CO2, Blood 33 mmol/L (21-32); Chloride, Blood 84 mmol/L (98-108); Creatinine, Blood 2.54 mg/dL (0.40-1.00); Glomerular Filtration Rate 20 (60-); Glucose, Blood 116 mg/dL (70-99); Magnesium, Blood 1.7 mg/dL (1.6-2.4); Phosphorus, Blood 2.4 mg/dL (2.5-4.9); Potassium, Blood 2.9 mmol/L (3.5-5.5); Sodium, Blood 127 mmol/L (136-145)
--- NOTE | 2022-10-13 07:12 | NUR ---
AM ASSESSMENT: Pt resting in bed at this time. LS diminished, coarse, crackles and wheezing noted in all lobes. Wet, congested cough noted. Pt currently on airvo at 50L and 50%, biox 97%. Decreased to 45% fio2. HR reg. BT positive. Pt just had 2 loose, incontenent BM's. BP elevated. WIll medicate per orders for HTN. Nelson cath draining clear, yellow urine. C-coller in place. Pt denies needs at this time. Call light in reach. Will continue to mnoitor.
[2022-10-13 13:47] LABS: BASOPHILS ABSOLUTE AUTO 0.03 K/mm3 (0.00-0.23); BASOPHILS PERCENT AUTO 0 % (0-2); EOSINOPHILS PERCENT AUTO 0 % (0-6); Hematocrit 34.5 % (33.0-51.0); Hemoglobin 11.4 g/dL (11.5-16.0); IMMATURE GRAN ABSOLUTE AUTO 0.17 K/mm3 (0.00-0.10); IMMATURE GRAN PERCENT AUTO 1 % (0-1); LYMPHOCYTES ABSOLUTE AUTO 0.19 K/mm3 (0.84-5.20); LYMPHOCYTES PERCENT AUTO 1 % (21-46); MONOCYTES ABSOLUTE AUTO 0.89 K/mm3 (0.16-1.47); MONOCYTES PERCENT AUTO 4 % (4-13); Mean Corpuscular HGB 28.5 pg (26.0-34.0); Mean Corpuscular Volume 86 fL (80-100); Mean Platelet Volume 9.9 fL (9.1-12.4); NEUTROPHILS ABSOLUTE AUTO 21.13 K/mm3 (1.96-9.15); NEUTROPHILS PERCENT AUTO 94 % (41-73); Platelet Count 370 K/mm3 (150-400); RDW Coefficient Variation 16.8 % (11.7-14.2); RDW Standard Deviation 53.4 fL (35.1-46.3); White Blood Cell Count 22.41 K/mm3 (4.00-11.30)
--- NOTE | 2022-10-13 18:43 | NUR ---
SHIFT SUMMARY: Pt resting in bed at this time. Was able to titrate oxygen down to 45L and 40% this shift, but LS have remained with rhonchi, coarse and wheezing. Wet cough. Pt has elevated BNP and lasix was given per orders. Pt also hypertensive throughout the shift and was medicated with PRN medications per orders. Physician was aware and new orders placed. Pt states that she has been achy throughout. Repositioned multiple times and given tylenol per orders. No other changes this shift. Will report to night RN.
--- NOTE | 2022-10-14 05:44 | NUR ---
SHIFT SUMMARY ASSUMED CARE OF PT AT 1900. PT IS A/OX4 BUT FORGETFUL. HEART SOUNDS REGULAR BUT DIFFICULT TO HEAR DUE TO LUNG SOUNDS. LUNG SOUNDS ARE COURSE WITH CRACKLES. PT WAS ON AIRVO MOST OF THE NIGHT 40/40%. PT WAS TITRATED TO 8L HIGHFLOW BUT HAD TO BE SWITCHED BACK TO AIRVO WHEN SLEEPING. PT WOULD REMOVE AIRVO AND DESAT TO 80S BUT RECOVER QUICKLY. PT WAS FINALLY ABLE TO GET SOME SLEEP TONIGHT. DAUGHTER CAME TO VISIT PT. PT HAS LONDONO DRAINING CLEAR YELLOW URINE. PT HAS MEPILEX ON COCCYX. PT WAS INCONTINENT OF BOWEL.
[2022-10-14 05:50] LABS: BASOPHILS ABSOLUTE AUTO 0.02 K/mm3 (0.00-0.23); BASOPHILS PERCENT AUTO 0 % (0-2); EOSINOPHILS PERCENT AUTO 0 % (0-6); Hematocrit 34.9 % (33.0-51.0); Hemoglobin 11.4 g/dL (11.5-16.0); IMMATURE GRAN ABSOLUTE AUTO 0.21 K/mm3 (0.00-0.10); IMMATURE GRAN PERCENT AUTO 1 % (0-1); LYMPHOCYTES ABSOLUTE AUTO 0.54 K/mm3 (0.84-5.20); LYMPHOCYTES PERCENT AUTO 3 % (21-46); MONOCYTES ABSOLUTE AUTO 1.03 K/mm3 (0.16-1.47); MONOCYTES PERCENT AUTO 6 % (4-13); Mean Corpuscular HGB 28.1 pg (26.0-34.0); Mean Corpuscular HGB Conc 32.7 g/dL (31.5-36.5); Mean Corpuscular Volume 86 fL (80-100); Mean Platelet Volume 10.2 fL (9.1-12.4); NEUTROPHILS ABSOLUTE AUTO 14.21 K/mm3 (1.96-9.15); NEUTROPHILS PERCENT AUTO 89 % (41-73); Platelet Count 362 K/mm3 (150-400); RDW Coefficient Variation 17.1 % (11.7-14.2); RDW Standard Deviation 53.9 fL (35.1-46.3); Red Blood Cell Count 4.06 M/mm3 (3.80-5.20); White Blood Cell Count 16.01 K/mm3 (4.00-11.30)
[2022-10-14 06:05] LABS: Albumin, Blood 2.7 g/dL (3.4-5.0); Anion Gap 7 mmol/L (6-16); Blood Urea Nitrogen 39 mg/dL (8-24); Bun/Creatinine Ratio 16.2 (12.0-20.0); CO2, Blood 35 mmol/L (21-32); Calcium, Blood 8.8 mg/dL (8.5-10.1); Chloride, Blood 91 mmol/L (98-108); Creatinine, Blood 2.41 mg/dL (0.40-1.00); Glomerular Filtration Rate 21 (60-); Glucose, Blood 105 mg/dL (70-99); Magnesium, Blood 1.6 mg/dL (1.6-2.4); Phosphorus, Blood 2.4 mg/dL (2.5-4.9); Potassium, Blood 3.6 mmol/L (3.5-5.5); Sodium, Blood 133 mmol/L (136-145)
--- NOTE | 2022-10-14 07:18 | NUR ---
Bedside report from Myriam Barth RN. Pt appears to be sleeping, wearing Airvo @ 40 l flow and 40% fio2. Daughter Elle is at the bedside.
--- NOTE | 2022-10-14 09:13 | NUR ---
Pt sitting up, watching TV and drinking coke after taking her morning medications. She states that she is not having trouble breathing, but that everything is happening at once and it is overwhelming for her. Switched over to nasal cannula from [employer] for transport to CT scan in a few minutes. Daughter Elle went home to get some sleep.
--- NOTE | 2022-10-14 09:31 | NUR ---
Myriam Riley RN, supervisor in charge accompanyied the pt to CT scan due to the C collar the pt is wearing, per protocol.
--- NOTE | 2022-10-14 11:06 | NUR ---
Medicated for c/o headache. Granddaughter is at the bedside. Pt was also repositioned to her right lying side.
--- NOTE | 2022-10-14 11:40 | NUR ---
Dr. Ryan here to see the patient at this time.
--- NOTE | 2022-10-14 12:19 | NUR ---
Pt was able to get to the side of the bed, dangling her legs, to eat lunch. Moderate assistance required. Respirations mildly increased with the activity, spo2 93% while eating, RR 18-20.
--- NOTE | 2022-10-14 12:30 | NUR ---
Noted incontence of stool when she stood at side of bed after lunch. Assisted with pericare, attends and linen change before assisting back to bed. Hips floated on pillows. Egg crate mattress also in place to reduce pressure ulcer risk.
--- NOTE | 2022-10-14 16:05 | NUR ---
Pt is holding steady on 5 l/min oxygen delivery, no hypoxia at rest, and no dyspnea during conversation or simple tasks of eating/drinking.
[2022-10-15 04:16] LABS: BASOPHILS ABSOLUTE AUTO 0.01 K/mm3 (0.00-0.23); BASOPHILS PERCENT AUTO 0 % (0-2); EOSINOPHILS PERCENT AUTO 0 % (0-6); Hematocrit 35.3 % (33.0-51.0); Hemoglobin 11.6 g/dL (11.5-16.0); IMMATURE GRAN ABSOLUTE AUTO 0.16 K/mm3 (0.00-0.10); IMMATURE GRAN PERCENT AUTO 1 % (0-1); LYMPHOCYTES ABSOLUTE AUTO 0.72 K/mm3 (0.84-5.20); LYMPHOCYTES PERCENT AUTO 5 % (21-46); MONOCYTES ABSOLUTE AUTO 0.57 K/mm3 (0.16-1.47); MONOCYTES PERCENT AUTO 4 % (4-13); Mean Corpuscular HGB 28.5 pg (26.0-34.0); Mean Corpuscular HGB Conc 32.9 g/dL (31.5-36.5); Mean Corpuscular Volume 87 fL (80-100); Mean Platelet Volume 10.1 fL (9.1-12.4); NEUTROPHILS ABSOLUTE AUTO 13.83 K/mm3 (1.96-9.15); NEUTROPHILS PERCENT AUTO 91 % (41-73); Platelet Count 387 K/mm3 (150-400); RDW Coefficient Variation 17.3 % (11.7-14.2); RDW Standard Deviation 55.2 fL (35.1-46.3); Red Blood Cell Count 4.07 M/mm3 (3.80-5.20); White Blood Cell Count 15.29 K/mm3 (4.00-11.30)
--- NOTE | 2022-10-15 05:33 | NUR ---
SHIFT SUMMARY ASUMED CARE OF PT AT 1900. PT IS A/OX4. HEART SOUNDS REGULAR. LUNG SOUNDS COARSE WITH WHEEZES. PT WAS ON 5L WHILE AWAKE AND 10L HIGHFLOW WHILE SLEEPING. PT IS A MOUTH BREATHER WHILE SLEEPING AND NEEDED O2 IN MOUTH A COUPLE OF TIMES DURING THE NIGHT. PT TURN SELF IN BED. PT HAD LONDONO DRAINING WITH GRAVITY. CLEAR YELLOW URINE. PT HAD NO NEW COMPLAINTS AND WAS ABLE TO SLEEP T/O THE NIGHT.
--- NOTE | 2022-10-15 09:46 | NUR ---
Oxygen delivery decreased to 4 l/min. spo2 99% on 5 l/min.
[2022-10-15 10:45] LABS: Albumin, Blood 2.9 g/dL (3.4-5.0); Anion Gap 11 mmol/L (6-16); Blood Urea Nitrogen 48 mg/dL (8-24); Bun/Creatinine Ratio 18.5 (12.0-20.0); CO2, Blood 33 mmol/L (21-32); Calcium, Blood 9.1 mg/dL (8.5-10.1); Chloride, Blood 93 mmol/L (98-108); Creatinine, Blood 2.59 mg/dL (0.40-1.00); Glomerular Filtration Rate 19 (60-); Glucose, Blood 116 mg/dL (70-99); Phosphorus, Blood 4.5 mg/dL (2.5-4.9); Sodium, Blood 137 mmol/L (136-145)
--- NOTE | 2022-10-15 12:24 | NUR ---
Blood pressure normalized. IV NS infusion stopped at this time. Pt is sitting on side of bed; she just finished eating lunch. Daughter Elle is at the bedside.
--- NOTE | 2022-10-15 13:28 | NUR ---
bladder training in progress, view to DC the noguera catheter soon.
--- NOTE | 2022-10-15 15:12 | NUR ---
PT appears to be napping following removal of Chau at 1430. Spo2 drops to low 80s while on 7 L O2 while sleeping; it was increased to 10 L with improved SpO2 above 90%. IVF continuing as the pt's blood pressure is still soft.
--- NOTE | 2022-10-15 16:43 | NUR ---
Blood pressure systolic 130. IVF off at this time. Pt states she spoke with her family about hospice support, and she wants to talk to the palliative care nurse tomorrow about the services available.
--- NOTE | 2022-10-15 18:20 | NUR ---
Pt ate dinner sitting dangling on side of bed. Minimal assistance needed to get back in bed, positioned on her right side with pillows for comfort and support. Oxygen 10 l/min required during the activity, reduced to 7 l/min afterwards. Pt states that she has voided since the noguera removal. PURWICK in place. Attends appear to be dry.
--- NOTE | 2022-10-15 21:57 | NUR ---
THIS RN CONTACTED DR ACE BALDERAS PER PT DAUGHTER'S REQUEST REGARDING CREATININE AND GFR. DR BALDERAS WAS INFORMED THAT THE PT RECEIVED 250 ML NS TODAY FOR BP. HE TOLD THIS RN THAT THE PT WILL HAVE LABS IN THE MORNING AND HE WILL WAIT FOR THOSE RESULTS DUE TO NOT WANTING TO FLUID OVERLOAD THE PT. PT WITH MINIMAL URINE OUTPUT TONIGHT AND ONE WET ATTENDS.
[2022-10-16 05:03] LABS: Hematocrit 37.2 % (33.0-51.0); Hemoglobin 12.2 g/dL (11.5-16.0)
[2022-10-16 05:31] LABS: Magnesium, Blood 1.4 mg/dL (1.6-2.4)
[2022-10-16 05:46] LABS: Source, Urine Foley catheter
[2022-10-16 05:48] LABS: Albumin, Blood 2.7 g/dL (3.4-5.0); Anion Gap 7 mmol/L (6-16); Blood Urea Nitrogen 53 mg/dL (8-24); Bun/Creatinine Ratio 21.6 (12.0-20.0); CO2, Blood 35 mmol/L (21-32); Calcium, Blood 8.1 mg/dL (8.5-10.1); Chloride, Blood 91 mmol/L (98-108); Creatinine, Blood 2.45 mg/dL (0.40-1.00); Glomerular Filtration Rate 20 (60-); Glucose, Blood 86 mg/dL (70-99); Potassium, Blood 3.6 mmol/L (3.5-5.5); Sodium, Blood 133 mmol/L (136-145)
[2022-10-16 05:58] LABS: Appearance, Urine Clear (Clear); Bilirubin, Urine Neg (Neg); Blood, Urine 2+ (Neg); Color, Urine Yellow (P-Yellow); Glucose Qualitative, Urine Neg (Neg); Ketones, Urine Neg (Neg); Leukocyte Esterase, Urine Neg (Neg); Nitrite, Urine Neg (Neg); Protein, Urine 2+ (Neg); Specific Gravity, Urine 1.015 (1.003-1.022); Urobilinogen, Urine NORM (Normal); pH, Urine 6.5 (5.0-8.0)
[2022-10-16 06:25] LABS: Red Blood Cells, Urine 0-2 /hpf (0-2)
[2022-10-16 06:27] LABS: Bacteria Rare /hpf; Squamous Epithelial Cells Rare /hpf (Few)
--- NOTE | 2022-10-16 06:41 | NUR ---
CHORE WORKER SUMMARY ASSUMED CARE OF THE PT AT 1900. SHE IS ALERT AND ORIENTED X4 BUT SOMETIMES FORGETFUL. PT ABLE TO STAND TO THE CHAIR WITH MINIMAL ASSISTANCE AND ABLE TO GET BACK TO BED. SHE HAS HAD DECREASED URINE OUTPUT THIS SHIFT SO BLADDER SCAN WAS DONE SHOWING 568 MLS. BALDERAS CONTACTED AND AN ORDER FOR A LONDONO OBTAINED AND PLACED WITH 600 MLS OUTPUT OF CLEAR YELLOW URINE. SHE DENIED ANY PAIN THIS SHIFT. PT WAS ON 4L BY HNC THROUGHOUT THE SHIFT WITHOUT DESATURATION WHILE SLEEPING. PT NOTED TO BE A BIT HYPERTENSIVE THIS MORNING.
--- NOTE | 2022-10-16 08:07 | NUR ---
Received call from Pt's Primary RN Lynn reporting Pt and daughter would like a visit from Palliative Care. Hospice was brought up to Pt be physician yesterday. Pt resting in bed eating her breakfast upon arrivl. Daughter Elle at bedside. Pt and daughter agreeable to discuss hospice. Educated on hospice philosophy with V/U made by Pt and daughter. Answered questions and offered therapeutic listening. Encouraged Pt to discuss further with family and reflect on her goals and values when making decisions. Pt falls asleep during visit. Continued conversation with daughter Elle. Palliative Care will remain available
[2022-10-16 13:14] LABS: BASOPHILS ABSOLUTE AUTO 0.02 K/mm3 (0.00-0.23); BASOPHILS PERCENT AUTO 0 % (0-2); EOSINOPHILS ABSOLUTE AUTO 0.03 K/mm3 (0.00-0.68); EOSINOPHILS PERCENT AUTO 0 % (0-6); Hematocrit 35.6 % (33.0-51.0); Hemoglobin 11.4 g/dL (11.5-16.0); IMMATURE GRAN ABSOLUTE AUTO 0.14 K/mm3 (0.00-0.10); IMMATURE GRAN PERCENT AUTO 1 % (0-1); LYMPHOCYTES ABSOLUTE AUTO 0.53 K/mm3 (0.84-5.20); LYMPHOCYTES PERCENT AUTO 3 % (21-46); MONOCYTES ABSOLUTE AUTO 0.39 K/mm3 (0.16-1.47); MONOCYTES PERCENT AUTO 2 % (4-13); Mean Corpuscular HGB 27.9 pg (26.0-34.0); Mean Corpuscular Volume 87 fL (80-100); Mean Platelet Volume 10.3 fL (9.1-12.4); NEUTROPHILS ABSOLUTE AUTO 17.66 K/mm3 (1.96-9.15); NEUTROPHILS PERCENT AUTO 94 % (41-73); Platelet Count 425 K/mm3 (150-400); RDW Coefficient Variation 17.2 % (11.7-14.2); RDW Standard Deviation 54.5 fL (35.1-46.3); Red Blood Cell Count 4.08 M/mm3 (3.80-5.20); White Blood Cell Count 18.77 K/mm3 (4.00-11.30)
--- NOTE | 2022-10-16 17:28 | NUR ---
SHIFT SUMMARY PT REMAINS ALERT AND ORIENTED, WITH MILD FORGETFULNESS AT TIMES. BP STABLE THIS SHIFT. PT ON 4L NC MOST OF SHIFT, BUT TITRATED UP FOR ANY ROLLING IN THE BED OR MOVEMENTS. SATS REMAINED ABOVE 90%. PT HAS COARSE COUGH, BUT UNABLE TO PRODUCE SPUTUM. LONDONO PATENT AND DRAINING CLEAR YELLOW URINE. PT INCONTINENT OF BOWEL TWICE THIS SHIFT. ATTENDS IN PLACE. PT COMPLAINED OF PAIN TO COCCYX AND LOWER BACK AND MEDICATED PER EMAR. FOAM DRESSING TO COCCYX FOR PREVENTITIVE MEASURE. PT REPOSITIONED Q2H AND MORE FREQUENTLY NEEDED. DAUGHTER UPDATED REQUESTED. WILL CONTINUE TO MONITOR AND REPORT TO ONCOMING RN
[2022-10-17 03:47] LABS: BASOPHILS ABSOLUTE AUTO 0.01 K/mm3 (0.00-0.23); BASOPHILS PERCENT AUTO 0 % (0-2); EOSINOPHILS ABSOLUTE AUTO 0.13 K/mm3 (0.00-0.68); EOSINOPHILS PERCENT AUTO 1 % (0-6); Hematocrit 32.9 % (33.0-51.0); Hemoglobin 10.9 g/dL (11.5-16.0); IMMATURE GRAN ABSOLUTE AUTO 0.13 K/mm3 (0.00-0.10); IMMATURE GRAN PERCENT AUTO 1 % (0-1); LYMPHOCYTES PERCENT AUTO 10 % (21-46); MONOCYTES ABSOLUTE AUTO 1.13 K/mm3 (0.16-1.47); MONOCYTES PERCENT AUTO 8 % (4-13); Mean Corpuscular HGB 28.3 pg (26.0-34.0); Mean Corpuscular HGB Conc 33.1 g/dL (31.5-36.5); Mean Corpuscular Volume 86 fL (80-100); Mean Platelet Volume 10.4 fL (9.1-12.4); NEUTROPHILS ABSOLUTE AUTO 11.41 K/mm3 (1.96-9.15); NEUTROPHILS PERCENT AUTO 80 % (41-73); Platelet Count 390 K/mm3 (150-400); RDW Coefficient Variation 17.1 % (11.7-14.2); Red Blood Cell Count 3.85 M/mm3 (3.80-5.20); White Blood Cell Count 14.21 K/mm3 (4.00-11.30)
[2022-10-17 04:35] LABS: Albumin, Blood 2.5 g/dL (3.4-5.0); Albumin/Globulin Ratio 0.8 (0.8-1.8); Bilirubin, Total 0.2 mg/dL (0.1-1.0); Bun/Creatinine Ratio 25.9 (12.0-20.0); Calcium, Blood 8.3 mg/dL (8.5-10.1); Creatinine, Blood 2.01 mg/dL (0.40-1.00); Globulin, Blood 3.1 g/dL (2.2-4.0); Magnesium, Blood 1.6 mg/dL (1.6-2.4); Phosphorus, Blood 2.9 mg/dL (2.5-4.9); Potassium, Blood 3.3 mmol/L (3.5-5.5); Total Protein, Blood 5.6 g/dL (6.4-8.2)
--- NOTE | 2022-10-17 05:31 | NUR ---
SHIFT SUMMARY PT HAS RESTED OFF AND ON T/O THE SHIFT. RT ATTEMPTED TO TITRATE O2 DOWN TO 4L FROM 6L AT THE BEGINNING OF THE SHIFT. HOWEVER, PT DID NOT TOLERATE TITRATION SHE WOULD DESAT TO THE MID TO UPPER 80'S WITH EXERTION OR WHEN SHE FELL ASLEEP. PT HAS BEEN ON 6L O2 MOST OF THE NIGHT. ATTEMPTED TO TITRATE TO 4L A COUPLE MORE TIMES T/O THE SHIFT, BUT AGAIN SHE WOULD ONLY TOLERATE FOR A SHORT TIME. PT IS ON 6L O2 AT THIS TIME. PT HAS HAD A FEW INCONTINENT BM'S, PT REPOSITONED T/O THE SHIFT. NEW MEPILEX DRESSING APPLIED TO COCCYX. PT HAS BEEN COMPLIANT WITH FLUID RESTRICTION. NO ACUTE CHANGES OVERNIGHT. BED IN LOWEST POSITION, CALL LIGHT WITHIN REACH.
--- NOTE | 2022-10-17 06:52 | NUR ---
FAMILY REQUEST FOR HOSPICE PT'S DAUGHTER ARRIVED TO INSURANCE AGENT AND STATED "I TALKED TO MY MOM LAST NIGHT AND WE REALLY THINK IT'S TIME TO GET HOSPICE STARTED". EXPRESSED A DESIRE TO HAVE ADDITIONAL RESOURCES TO GET PT SET UP AT HER HOME. ALSO STATED "I UNDERSTAND THAT SHE IS MEDICAL STATUS BUT I WOULD PREFER TO TAKE HER HOME TO MY HOUSE INSTEAD OF HAVING HER MOVED TO THE MEDICAL FLOOR". COMMUNICATED TO THE DAY SHIFT CHARGE NURSE AND THE PRIMARY RN FOR PLANNING TODAY.
--- NOTE | 2022-10-17 07:16 | NUR ---
O2 NEEDS PT NEEDS ABOUT 8L OF O2 WHEN SLEEPING SHE DESATS INTO THE UPPER 80'S, WHEN PT COUGHS O2 SATURATION IMPROVES, HOWEVER PT DESATS AGAIN AFTER FALLING ASLEEP. SCRAP YARD WORKER AGUSTO MADE AWARE THAT O2 NEEDS HAVE INCREASED. COLLABORATED WITH RT RAMIRO, AND NOTIFIED HIM WELL. RT RECOMMENDED INCENTIVE SPIROMETER USE, PT ALSO ENCOURAGED TO COUGH AND DEEP BREATHE. PT TO BE TITRATED DOWN WHILE AWAKE. DAYSHIFT RN MADE AWARE, DAYSHIFT RT MADE AWARE. DAYSHIFT RN HAS DECREASED O2 TO 6L DURING BEDSIDE REPORT, PT IS AWAKE AT THIS TIME.
--- NOTE | 2022-10-17 17:08 | NUR ---
END OF SHIFT: SINCE ASSUMPTION OF CARE THIS AM ONLY CHANGES ARE DECREASED O2 DEMAND CAN HANDLE BREAKS AT 0L VIA NC AND SATURATE GREATER THAN 90%. INCREASES WITH EXERTION. DENIES CHEST PAIN OR PRESSURE FOR THIS RN. PATIENTS CONCERNS ARE ABOUT DISHCARGE. WITH DECREASED O2 DEMAND AND INCREASED MENTATION AND STRENGTH THIS RN WOULD SEE FIT FOR DISCHARGE WITH HOME LIFE WITH DAUGHTER. PATIENT HAS BEEN PLEASANT, CAN BE FORGETFUL, BUT NOT TRYING TO GET OUT OF BED OR PULL LINES. LONDONO IN PLACE DRIANING TO GRAVITY.
[2022-10-18 03:41] LABS: Hematocrit 32.2 % (33.0-51.0); Hemoglobin 10.7 g/dL (11.5-16.0)
--- NOTE | 2022-10-18 04:31 | NUR ---
SHIFT SUMMARY PT HAS BEEN AWAKE A LOT OF THE SHIFT, SHE REPORTS DIFFICULTY SLEEPING DESPITE RECEIVING MELATONIN AT BEDTIME. PT HAS DONE WELL ON ON 3.5 LITERS OF O2 AND HAS BEEN ABLE TO MAINTAIN HER SATS ABOVE 95%. NON PRODUCTIVE COUGH. PT HAS BEEN HYPERTENSIVE THIS SHIFT. PT PLACED BACK ON TELEMETRY AND IV LOPRESSOR GIVEN WITH AFFECT. PT MEDICATED FOR HEADACHE THIS SHIFT, PT REPORTS RELIEF WITH TYLENOL. PLAN IS FOR PALLATIVE CARE/HOSPICE. POSSIBLE DC EARLY THIS WEEK. NO OTHER CHANGES TO REPORT OVERNIGHT. BED IN LOWEST POSITION, CALL LIGHT WITHIN REACH.
[2022-10-18 04:32] LABS: Albumin, Blood 2.8 g/dL (3.4-5.0); Anion Gap 4 mmol/L (6-16); Blood Urea Nitrogen 42 mg/dL (8-24); Bun/Creatinine Ratio 27.5 (12.0-20.0); CO2, Blood 32 mmol/L (21-32); Calcium, Blood 8.6 mg/dL (8.5-10.1); Chloride, Blood 94 mmol/L (98-108); Creatinine, Blood 1.53 mg/dL (0.40-1.00); Glomerular Filtration Rate 36 (60-); Glucose, Blood 109 mg/dL (70-99); Magnesium, Blood 1.6 mg/dL (1.6-2.4); Phosphorus, Blood 2.6 mg/dL (2.5-4.9); Potassium, Blood 3.2 mmol/L (3.5-5.5); Sodium, Blood 130 mmol/L (136-145)
--- NOTE | 2022-10-18 06:01 | NUR ---
INCREASED O2 NEEDS/ANXIETY PT VERY ANXIOUS THIS AM CLOSE TO 0600, SHE WAS SITTING ON THE SIDE OF THE BED HYPERVENTILATING, WHEN ASKED WHAT'S WRONG PT STATED THAT SHE DID NOT KNOW. PT APPEARED SOB AND RESPIRATIONS LABORED. PT MAINTAINING HER SATS ABOVE 90% ON 3.5 LITERS. RT CALLED TO EVALUATE PT, PT LUNGS ARE MORE MOIST THIS AM, THEY ARE RECOMMENDING BIPAP, O2 INCREASED TO 5L BY RT AND BREATHING TREATMENT GIVEN. PT DAUGHTER CALLED BY MAINTENANCE AND ENGINEERING MANAGER, SHE IS IN ROOM WITH PT NOW TO HELP ALLEVIATE HER ANXIETY. PT DAUGHTER IS REQUESTING SOMETHING FOR ANXIETY FOR PT, WILL REACH OUT TO PROVIDER.
--- NOTE | 2022-10-18 06:18 | NUR ---
BIPAP DR. RHOADES NOTIFIED OF PT ANXIETY AND SOB THIS AM AND RT'S RECOMMENDATION FOR BIPAP. HE ORDERED BIPAP AND ATIVAN FOR ANXIETY. ORDERS PLACED. WILL NOTIFY RT FOR BIPAP PLACEMENT.
--- NOTE | 2022-10-18 07:34 | NUR ---
ASSUMPTION OF CARE: PATIENT HAD A EPISODE OF EXTREME SOB SATURATING WELL, BUT NEEDING TO SIT UP AT THE BEDSIDE, AND RT RECOMMENDED BIPAP. DILIPENMARCE GUTIERREZN IS SATURATING WELL WITH NO NEED FOR BIPAP, BUT BIPAP ON STAND BY AND RT TO SCHEDULE NEB TREATMENTS. PATIENT HAS BEEN INFORMED, CURRENTLY IN NO ACUTE SIGN OF DISTRESS. INFUSING POTASSIUM CURRENLTY. STARTED BY NIGHT RN BEFORE ASSUMPTION OF CARE PATIENT IS STILL PLEASANT ANXIOUS AT TIMES OF SOB. PATIENT HAS BEEN ABLE TO MAKE MOST NEEDS KNOWN. PATIENT SPO2 >90% ON 4L. SOME COARSE BASES, BUT NOT AN INCREASE IN ADVANTAGIOUS AT THIS TIME. WILL COTINUE TO MONITOR. PATIENT DENIES CHEST PAIN PRESSURE OR SOB AT REST AT THIS TIME. SLOWING OF BOWEL MOVEMENTS. FOELY IS PATENT AND DRAINING TO GRAVITY. ONLY CONCERN ARE FOR PATIENT DISCHARGE SHE WILL NEED, BIPAP FOR Sx MANAGEMENT AND BED. PATIENT HAS NO CONCERNS AT THIS TIME.
[2022-10-19 03:57] LABS: Hematocrit 31.1 % (33.0-51.0); Hemoglobin 10.3 g/dL (11.5-16.0)
[2022-10-19 04:17] LABS: Magnesium, Blood 1.5 mg/dL (1.6-2.4)
[2022-10-19 04:18] LABS: Albumin, Blood 2.7 g/dL (3.4-5.0); Anion Gap 5 mmol/L (6-16); Blood Urea Nitrogen 38 mg/dL (8-24); Bun/Creatinine Ratio 26.2 (12.0-20.0); CO2, Blood 32 mmol/L (21-32); Calcium, Blood 8.4 mg/dL (8.5-10.1); Chloride, Blood 97 mmol/L (98-108); Creatinine, Blood 1.45 mg/dL (0.40-1.00); Glomerular Filtration Rate 38 (60-); Glucose, Blood 89 mg/dL (70-99); Phosphorus, Blood 3.4 mg/dL (2.5-4.9); Potassium, Blood 3.5 mmol/L (3.5-5.5); Sodium, Blood 134 mmol/L (136-145)
--- NOTE | 2022-10-19 04:38 | NUR ---
SHIFT SUMMARY: NO ACUTE CHANGES OVERNIGHT. PT ALERT AND ORIENTED, ABLE TO FOLLOW COMMANDS AND MAKE NEEDS KNOWN, FORGETFUL AT TIMES. HR STABLE, AFEBRILE, SATS >96% ON 3L NC. PT WITH OCCASIONAL COUGH, HAVING THICK YELLOW SECRETIONS, SUCTION REMAINS AT BEDSIDE. BP ELEVATED THIS AM, MEDICATED PER EMAR. LONDONO CATH IN PLACE, PATENT AND DRAINING YELLOW URINE TO GRAVITY, NO BM. REPOS Q2 TO MAINTAIN SKIN INTEGRTY. C COLLER REMAINS IN PLACE, REDNESS NOTED AROUND NECK, MEPLIEX IN PLACE FOR PREVENTATIVE MEASURES. BED IN LOW, CALL LIGHT IN REACH, WILL REPORT TO ONCOMING RN.
--- NOTE | 2022-10-19 17:52 | NUR ---
SHIFT SUMMARY PT A/O X4, FORGETFUL. PLEASANTLY CONFUSED AT TIMES. HR 60-70'S, NSR. PT HTN, IV LOPRESSOR GIVEN ONCE PER EMAR THIS AFTERNOON. DR SEVILLA CONTACTED DUE TO SBP STILL BEING IN THE 170'S. ORDER TO RESTART PT HOME MED, [place], THIS EVENING. PT ON 3L VIA NC T/O DAY, SPO2 >92%. PT LUNGS STILL COARSE T/O. PT STILL HAS PRODUCTIVE COUGH. PT WORKED WITH PHYSICAL THERAPY TODAY AND DID WELL WITH FWW. PLAN FOR PT TO DC ON HOSPICE TOMORROW AM.
[2022-10-20 04:09] LABS: Hematocrit 32.3 % (33.0-51.0); Hemoglobin 10.5 g/dL (11.5-16.0)
--- NOTE | 2022-10-20 04:23 | NUR ---
SHIFT SUMMARY: PT REMAINS ALERT AND ORIENTED, ABLE TO FOLLOW COMMANDS AND MAKE NEEDS KNOWN. BP AND HR STABLE, AFEBRILE, SATS >96% ON 2L NC. RESPIRATIONS EVEN AND UNLABORED AT REST. PT SLEPT A MAJORITY OF THE NIGHT, REPOS Q2 TO MAINTAIN SKIN INTEGRITY. LONDONO CATH IN PLACE, PATENT AND DRAINING TO GRAVITY. NO BM. PLAN FOR D/C TO HOSPICE THIS AM. BED IN LOW, CALL LIGHT IN REACH, ALARM ON, WILL REPORT TO ONCOMING RN.
[2022-10-20 04:40] LABS: Albumin, Blood 2.8 g/dL (3.4-5.0); Anion Gap 4 mmol/L (6-16); Blood Urea Nitrogen 32 mg/dL (8-24); Bun/Creatinine Ratio 21.1 (12.0-20.0); CO2, Blood 32 mmol/L (21-32); Calcium, Blood 8.5 mg/dL (8.5-10.1); Chloride, Blood 95 mmol/L (98-108); Creatinine, Blood 1.52 mg/dL (0.40-1.00); Glomerular Filtration Rate 36 (60-); Glucose, Blood 85 mg/dL (70-99); Magnesium, Blood 1.8 mg/dL (1.6-2.4); Phosphorus, Blood 2.8 mg/dL (2.5-4.9); Potassium, Blood 3.5 mmol/L (3.5-5.5); Sodium, Blood 131 mmol/L (136-145)
[2022-10-20] MEDS ORDERED: PRED20 PO (10:16)
[2022-10-20] MEDS ORDERED: SODCHL1 PO (10:16)
--- NOTE | 2022-10-20 11:27 | NUR ---
DISCHARGE SUMMARY DISCHARGE EDUCATION WAS PROVIDED TO THE PT'S DAUGHTER. ALL QUESTIONS AND CONCERNS WERE ADDRESSED PRIOR TO DISCHARGE. ALL PERSONAL BELONGINGS WERE IN THE POSSESSION OF THE PT'S FAMILY AT THE TIME OF DISCHARGE. PT WAS TRANSPORTED BY PERSONAL WHEELCHAIR ESCORTED BY FAMILY.
== END 2022-10-20 10:44 | disposition hospice, home (50) | DRG 871 ==
LOC: ER 16:57 → PCU 22:35
PROVIDERS: Emergency Medicine; Family Medicine; Internal Medicine; Internal Medicine Cardiovascular Disease; Internal Medicine Endocrinology, Diabetes & Metabolism; Internal Medicine Nephrology; Student in an Organized Health Care Education/Training Program; ADMIT Internal Medicine
PROC: 3E03329 Introduction of Other Anti-infective into Peripheral Vein, Percutaneous Approach (ICD-10-PCS; principal; 2022-10-09)
PROC: 4A133R1 Monitoring of Arterial Saturation, Peripheral, Percutaneous Approach (ICD-10-PCS; 2022-10-09)
PROC: 0T9B70Z Drainage of Bladder with Drainage Device, Via Natural or Artificial Opening (ICD-10-PCS; 2022-10-09)
DX: A40.8 Other streptococcal sepsis (principal); E43 Unspecified severe protein-calorie malnutrition; I21.A1 Myocardial infarction type 2; I50.33 Acute on chronic diastolic (congestive) heart failure; J15.9 Unspecified bacterial pneumonia; J96.21 Acute and chronic respiratory failure with hypoxia; I13.0 Hypertensive heart and chronic kidney disease with heart failure and stage 1 through stage 4 chronic kidney disease, or unspecified chronic kidney disease; N17.9 Acute kidney failure, unspecified; E87.1 Hypo-osmolality and hyponatremia; R64 Cachexia; Z68.1 Body mass index [BMI] 19.9 or less, adult; N39.0 Urinary tract infection, site not specified; Z28.21 Immunization not carried out because of patient refusal; Z20.822 Contact with and (suspected) exposure to COVID-19; I34.0 Nonrheumatic mitral (valve) insufficiency; F17.210 Nicotine dependence, cigarettes, uncomplicated; N18.9 Chronic kidney disease, unspecified; D63.1 Anemia in chronic kidney disease; R65.20 Severe sepsis without septic shock; J43.9 Emphysema, unspecified; I25.10 Atherosclerotic heart disease of native coronary artery without angina pectoris; I73.9 Peripheral vascular disease, unspecified; E87.6 Hypokalemia; G89.29 Other chronic pain; F41.3 Other mixed anxiety disorders; F32.A Depression, unspecified; M54.50 Low back pain, unspecified; E78.00 Pure hypercholesterolemia, unspecified; K21.9 Gastro-esophageal reflux disease without esophagitis; M81.0 Age-related osteoporosis without current pathological fracture; M19.90 Unspecified osteoarthritis, unspecified site; J20.9 Acute bronchitis, unspecified; Z87.81 Personal history of (healed) traumatic fracture; Z90.89 Acquired absence of other organs; Z98.51 Tubal ligation status; Z98.890 Other specified postprocedural states; Z71.6 Tobacco abuse counseling; Z99.81 Dependence on supplemental oxygen; Z95.1 Presence of aortocoronary bypass graft; Z88.8 Allergy status to other drugs, medicaments and biological substances; Z79.02 Long term (current) use of antithrombotics/antiplatelets; Z79.82 Long term (current) use of aspirin; Z79.899 Other long term (current) drug therapy
CPT/HCPCS: 0241U; 36415; 51702; 71045; 71250; 74176; 76770; 80048; 80053; 80069; 81001; 82533; 82803; 83605; 83735; 83880; 83930; 83935; 84100; 84132; 84145; 84295; 84300; 84484; 84550; 85014; 85018; 85025; 87040; 87086; 93005; 93010; 93306; 94640; 94660; 94664; 94762; 96365; 96375; 97112; 97162; 97530; 99285-25; A9270; J0456; J0696; J1644; J1940; J2405; J2920; J2930; J3475; J3480; J7030; J7050; J7060